=== PATIENT | female | born 1960 | race Caucasian/White ===

== ENCOUNTER 2019-11-09 15:51 | Outpatient (CLI) | payer OTHER, SELFPAY ==
[2019-11-09 16:17] LABS: Basophils Absolute Auto 0.02 K/mm3 (0.00-0.10); Basophils Percent Auto 0.4 % (0.0-1.0); Eosinophils Absolute Auto 0.25 K/mm3 (0.02-0.50); Eosinophils Percent Auto 5.2 % (1.0-6.0); Hematocrit 39.5 % (35.0-49.0); Hemoglobin 13.2 g/dL (12.0-15.0); Immature Granulocyte Absolute 0.01 K/mm3 (0.00-0.00); Immature Granulocyte Percent A 0.2 % (0.0-0.0); Lymphocytes Absolute Auto 1.12 K/mm3 (1.10-4.50); Lymphocytes Percent Auto 23.3 % (18.0-42.0); Mean Corpuscular HGB Conc 33.4 g/dL (32.0-36.0); Mean Corpuscular Volume 95.9 fL (78.0-102.0); Mean Platelet Volume 10.9 fl (9.2-11.8); Monocytes Absolute Auto 0.28 K/mm3 (0.10-0.90); Monocytes Percent Auto 5.8 % (2.0-11.0); Neutrophils Absolute Auto 3.1 K/mm3 (1.7-7.2); Neutrophils Percent Auto 65.1 % (50.0-70.0); Platelet Count Result 182 K/mm3 (150-420); Red Blood Count 4.12 M/mm3 (4.20-5.40); Red Cell Distribution Width 14.2 % (11.6-14.4); White Blood Count 4.8 K/mm3 (4.8-10.8)
[2019-11-09 16:26] LABS: Hemoglobin A1C 6.9 % (<5.7)
[2019-11-09 17:24] LABS: Alanine Aminotransferase 26 U/L (14-59); Albumin Level 3.8 g/dL (3.4-5.0); Alkaline Phosphatase 130 U/L (46-116); Anion Gap 11.8 mmol/L (7-16); Aspartate Amino Transferase 27 U/L (15-37); Bilirubin,Total 0.4 mg/dL (0.00-1.00); Blood Urea Nitrogen 24 mg/dL (7-18); Calcium 9.1 mg/dL (8.5-10.1); Carbon Dioxide 34 mmol/L (21-32); Chloride 96 mmol/L (98-108); Estimated Glomerular Filt Rate 50; Glucose 163 mg/dL (70-99); Osmolality Calculated 294 mOsm/kg (285-295); Potassium 3.8 mmol/L (3.5-5.1); Sodium 138 mmol/L (136-145); Thyroid Stimulating Hormone 41.68 uIU/mL (0.36-3.74)
[2019-11-11 19:58] LABS: Vitamin D 25 Hydroxy 5 ng/mL (30-100)
== END 2019-11-09 15:52 | disposition home or self-care (01) ==
LOC: CHSLAB 15:57
DX: N39.41 Urge incontinence (principal); E87.6 Hypokalemia; F32.89 Other specified depressive episodes; L03.119 Cellulitis of unspecified part of limb; E03.9 Hypothyroidism, unspecified; R73.9 Hyperglycemia, unspecified; R53.83 Other fatigue; E55.9 Vitamin D deficiency, unspecified
CPT/HCPCS: 36415; 80053; 82306; 83036; 84443; 85025

== ENCOUNTER 2019-11-10 15:50 | Outpatient (NON) | payer OTHER, SELFPAY ==
[2019-11-10 16:03] LABS: Add Urine Microscopic? NO; Appearance Urine Clear (Clear); Bilirubin Urine Negative (Negative); Blood Urine Negative (Negative); Color Urine Yellow (Yellow); Glucose Urine UA Negative (Negative); Ketones Urine Negative (Negative); Leukocyte Esterase Ur Negative (Negative); Nitrate Urine Negative (Negative); Protein Urine Negative (Negative); Specific Grav Ur 1.015 (1.010-1.020); Urobilinogen Urine 0.2 mg/dL (0.2-1.0); pH Urine 5.5 (5.0-8.0)
== END 2019-11-10 15:51 ==
LOC: CHSLAB 15:54
DX: N39.41 Urge incontinence (principal)
CPT/HCPCS: 81003; 87086; 87088

== ENCOUNTER 2020-05-26 18:51 | Emergency (ER) | payer OTHER, SELFPAY ==
[2020-05-26 19:00] VITALS: BP 126/69; PULSE 87; RESP 16; TEMP 37.6; O2SAT 96
--- NOTE | 2020-05-26 19:19 | ED.GENADULT ---
HPI - General Adult General Chief complaint: Neuro Symptoms/Deficit Stated complaint: possible high blood sugar Time Seen by Provider: 05/26/20 19:19 Source: patient Mode of arrival: ambulatory Limitations: no limitations History of Present Illness HPI narrative: 59-year-old woman comes in today complaining of intermittent jerking of her arms and legs last 2 days. Patient states that she was recently diagnosed with diabetes and was placed on metformin. she has had diarrhea since she started on the metformin. This diagnosis was accompanied by hospital stay for lower extremity cellulitis. She states that she has had no headaches, seizures, syncope, head injury, nausea, vomiting, blood in her stools, melena, dysuria, hematuria, abdominal pain, chest pain, shortness of breath or cough that is out of the usual. She is a smoker and has COPD. She states that she recently ran out of her potassium pills. Onset (ago): day(s) (2) Location: upper extremity and lower extremity Severity: moderate Relieving factors: none Exacerbating factors: none Treatments prior to arrival: none Related Data Home Medications Medication Instructions Recorded Confirmed alprazolam 2 mg PO TID PRN 05/26/20 05/26/20 gabapentin 400 mg PO TID 05/26/20 05/26/20 hydrocodone-acetaminophen 1 tablet PO TID 05/26/20 05/26/20 irbesartan 300 mg PO DAILY 05/26/20 05/26/20 levothyroxine [Synthroid] 225 mcg PO DAILY 05/26/20 05/26/20 metformin 500 mg PO BID 05/26/20 05/26/20 metolazone 2.5 mg PO EVERY OTHER DAY 05/26/20 05/26/20 potassium chloride 20 meq PO DAILY 05/26/20 05/26/20 tizanidine 4 mg PO TID 05/26/20 05/26/20 Review of Systems Constitutional: Constitutional: Denies chills, Denies fever(s) and Denies weakness Eyes: Eyes: Denies blurry vision, Denies change in vision, Denies loss of vision and Denies photophobia ENT: Denies otalgia, Denies nasal congestion and Denies sore throat Cardiovascular: Cardiovascular: Denies chest pain, Denies rapid heart rate and Denies irregular heart rhythm Respiratory: Respiratory: Reports cough (No more than usual) and Reports dyspnea (No more than usual) Gastrointestinal: Gastrointestinal: Denies abdominal pain, Denies melena, Denies hematochezia, Reports diarrhea, Denies nausea and Denies vomiting Genitourinary: Genitourinary: Denies hematuria and Denies dysuria Musculoskeletal: Musculoskeletal: Denies arthralgias and Denies joint swelling Integumentary/Breasts: Skin/Breast: Denies lesions, Denies erythema and Denies rash Neurologic: Reports as per HPI, Reports Neuro-related abnormal movements, Denies abnormal gait, Denies dizziness, Denies syncope, Denies frequent falls, Denies headache(s), Denies focal weakness, Denies numbness, Denies convulsions and Denies seizure-like activity Endocrine: Endocrine: Denies polydipsia and Denies polyuria Hematologic/Lymphatic: Hematologic/Lymphatic: Denies easy bleeding and Denies easy bruising Allergic/Immunologic: Allergic/Immunologic: Denies urticaria, Denies lip swelling and Denies throat swelling PMFSH Past Medical History Medical History (Updated 05/26/20 @ 20:34 by Bimal Merida MD) Anxiety Back pain COPD (chronic obstructive pulmonary disease) Hypertension Hypokalemia Lower extremity cellulitis Lower extremity edema Surgical History Surgical History History of appendectomy History of History of hysterectomy Hx of cholecystectomy Social History Social History Smoking status: Current every day smoker Alcohol intake: never Substance use: never Living arrangements: with family Exam Const: General: cooperative, alert, awake, Physically active and acute distress mild Nutritional Appearance: overweight Orientation/consciousness: patient oriented x3 Limitations: no limitations HENMT: Head: normocephalic and atraumatic Ears:
[2020-05-26 20:01] LABS: Basophils Absolute Auto 0.03 K/mm3 (0.00-0.10); Basophils Percent Auto 0.3 % (0.0-1.0); Eosinophils Absolute Auto 0.21 K/mm3 (0.02-0.50); Eosinophils Percent Auto 2.4 % (1.0-6.0); Hematocrit 40.2 % (35.0-49.0); Hemoglobin 13.3 g/dL (12.0-15.0); Immature Granulocyte Absolute 0.03 K/mm3 (0.00-0.00); Immature Granulocyte Percent A 0.3 % (0.0-0.0); Lymphocytes Absolute Auto 1.42 K/mm3 (1.10-4.50); Lymphocytes Percent Auto 16.1 % (18.0-42.0); Mean Corpuscular HGB Conc 33.1 g/dL (32.0-36.0); Mean Corpuscular Hemoglobin 32.3 pg (27.0-31.0); Mean Corpuscular Volume 97.6 fL (78.0-102.0); Mean Platelet Volume 11.3 fl (9.2-11.8); Monocytes Absolute Auto 0.44 K/mm3 (0.10-0.90); Neutrophils Absolute Auto 6.7 K/mm3 (1.7-7.2); Neutrophils Percent Auto 75.9 % (50.0-70.0); Platelet Count Result 238 K/mm3 (150-420); Red Blood Count 4.12 M/mm3 (4.20-5.40); Red Cell Distribution Width 14.7 % (11.6-14.4); White Blood Count 8.8 K/mm3 (4.8-10.8)
[2020-05-26 20:06] LABS: Add Urine Microscopic? NO; Appearance Urine Clear (Clear); Bilirubin Urine Negative (Negative); Blood Urine Negative (Negative); Color Urine Yellow (Yellow); Glucose Urine UA Negative (Negative); Ketones Urine Negative (Negative); Leukocyte Esterase Ur Negative (Negative); Nitrate Urine Negative (Negative); Protein Urine Negative (Negative); Urobilinogen Urine 0.2 mg/dL (0.2-1.0)
[2020-05-26 20:16] LABS: Alanine Aminotransferase 29 U/L (14-59); Albumin Level 4.2 g/dL (3.4-5.0); Alkaline Phosphatase 120 U/L (46-116); Anion Gap 8 mmol/L (8-16); Aspartate Amino Transferase 33 U/L (15-37); Bilirubin,Total 0.5 mg/dL (0.00-1.00); Blood Urea Nitrogen 9 mg/dL (7-18); Calcium 9.4 mg/dL (8.5-10.1); Carbon Dioxide 33 mmol/L (21-32); Chloride 98 mmol/L (98-108); Estimated Glomerular Filt Rate 42; Glucose 105 mg/dL (70-99); Magnesium 1.5 mg/dL (1.8-2.4); Osmolality Calculated 286 mOsm/kg (285-295); Phosphorus 3.7 mg/dL (2.6-4.7); Potassium 2.8 mmol/L (3.5-5.1); Sodium 139 mmol/L (136-145); Total Protein 8.1 g/dL (6.4-8.2)
[2020-05-26 20:38] LABS: Glucose Point of Care 92 (65-105)
[2020-05-26] MEDS: POTASSIUM CHLORIDE 20 MEQ TABLET 40 MEQ PO (20:39)
[2020-05-26 20:40] VITALS: BP 117/69
[2020-05-30 04:12] LABS: Ionized Calcium 4.9 mg/dL (4.8-5.6)
== END 2020-05-26 20:40 | disposition home or self-care (01) ==
PROVIDERS: Emergency Provider Emergency Medicine
DX: E87.6 Hypokalemia (principal)
CPT/HCPCS: 36415; 80053; 81003; 82330; 83735; 84100; 85025; 99283; A9270

== ENCOUNTER 2020-12-15 13:01 | Emergency (ER) | payer OTHER, SELFPAY ==
--- NOTE | ~2020-12-15 | XR_ITS ---
EXAMINATION: XR chest 1V portable INDICATION: Chest pain TECHNIQUE: Portable AP chest at 1429 hours COMPARISON: 06/09/2012 FINDINGS: The lungs are free of acute opacities. There is no pleural effusion or pneumothorax. The ca rdiomediastinal silhouette is normal. IMPRESSION: 1. No acute cardiopulmonary abnormality. Reviewed, dictated and finalized at location B.
[2020-12-15 13:44] VITALS: BP 81/51; PULSE 58; RESP 18; TEMP 36.3; O2SAT 95
--- NOTE | 2020-12-15 13:45 | PC.NURSE ---
pt refusing to have iv started in ac or hand.
--- NOTE | 2020-12-15 13:51 | ECG_ITS ---
Measurements Intervals [place] Rate: 52 P: 64 KS: 210 QRS: 37 QRSD: 99 T: 20 QT: 452 QTc: 422 Interpretive Statements SINUS BRADYCARDIA WITH FIRST DEGREE AV BLOCK DELAYED PRECORDIAL R/S TRANSITION BASELINE ARTIFACT- I, II, III, AVR, AVL, AVF ABNORMAL ECG Electronically Signed On 12-15-2020 15:14:30 CDT by Vivek Stahl D.O.
[2020-12-15] MEDS: SODIUM CHLORIDE 0.9% IV 1,000 ML 999 ML IV CONT (14:12)
[2020-12-15 14:18] LABS: Basophils Absolute Auto 0.02 K/mm3 (0.00-0.10); Basophils Percent Auto 0.4 % (0.0-1.0); Eosinophils Absolute Auto 0.08 K/mm3 (0.02-0.50); Eosinophils Percent Auto 1.4 % (1.0-6.0); Hematocrit 37.4 % (35.0-49.0); Hemoglobin 12.4 g/dL (12.0-15.0); Immature Granulocyte Absolute 0.02 K/mm3 (0.00-0.00); Immature Granulocyte Percent A 0.4 % (0.0-0.0); Lymphocytes Absolute Auto 0.71 K/mm3 (1.10-4.50); Lymphocytes Percent Auto 12.6 % (18.0-42.0); Mean Corpuscular HGB Conc 33.2 g/dL (32.0-36.0); Mean Corpuscular Volume 93.5 fL (78.0-102.0); Mean Platelet Volume 10.4 fl (9.2-11.8); Monocytes Absolute Auto 0.37 K/mm3 (0.10-0.90); Monocytes Percent Auto 6.6 % (2.0-11.0); Neutrophils Absolute Auto 4.4 K/mm3 (1.7-7.2); Neutrophils Percent Auto 78.6 % (50.0-70.0); Platelet Count Result 239 K/mm3 (150-420); White Blood Count 5.6 K/mm3 (4.8-10.8)
--- NOTE | 2020-12-15 14:30 | PC.NURSE ---
Pt drowsy, pt states her iv is infiltrated and wants it removed. small area of swelling, blood return noted. iv discontinued per pt request. pt refusing to have iv placed in ac or her hand. explained to pt at length that at this time and due to bruising of recent iv starts and lab draws this was the only location this RN could get iv access. pt agrees. sl started to left hand without difficulty, blood return noted, flushes easily. pt states area of iv start is painful, assured pt that iv is in proper position and iv fluids are infusing.
[2020-12-15 14:36] LABS: Alanine Aminotransferase 23 U/L (14-59); Alkaline Phosphatase 135 U/L (46-116); Anion Gap 8 mmol/L (8-16); Aspartate Amino Transferase 25 U/L (15-37); Bilirubin,Total 0.6 mg/dL (0.00-1.00); Blood Urea Nitrogen 25 mg/dL (7-18); Calcium 8.7 mg/dL (8.5-10.1); Carbon Dioxide 33 mmol/L (21-32); Chloride 95 mmol/L (98-108); Estimated CRCL calculation 47 ml/min; Estimated Glomerular Filt Rate 44; Glucose 163 mg/dL (70-99); Osmolality Calculated 290 mOsm/kg (285-295); Potassium 3.6 mmol/L (3.5-5.1); Sodium 136 mmol/L (136-145); Total Protein 6.3 g/dL (6.4-8.2)
[2020-12-15 14:37] LABS: Lactic Acid Reflex 1.6 mmol/L (0.4-2.0); Troponin I < 4.0 ng/L (0.00-60.4)
--- NOTE | 2020-12-15 15:02 | PC.NURSE ---
PT SITTING UP ON STRETCHER SLEEPING, DAUGHTER AT BEDSIDE
[2020-12-15 15:03] VITALS: BP 82/46; PULSE 53; RESP 18; O2SAT 96
[2020-12-15 15:42] VITALS: BP 105/65; PULSE 57; RESP 18; O2SAT 99
[2020-12-15 15:57] LABS: Add Urine Microscopic? NO; Appearance Urine Clear (Clear); Bilirubin Urine Negative (Negative); Blood Urine Negative (Negative); Color Urine Light Yellow (Yellow); Glucose Urine UA Negative (Negative); Ketones Urine Negative (Negative); Leukocyte Esterase Ur Negative (Negative); Nitrate Urine Negative (Negative); Protein Urine Negative (Negative); Specific Grav Ur <= 1.005 (1.010-1.020); Urobilinogen Urine 0.2 mg/dL (0.2-1.0)
[2020-12-15] MEDS: SODIUM CHLORIDE 0.9% IV 500 ML 999 ML IV CONT (16:10)
[2020-12-15 16:14] LABS: Troponin I < 4.0 ng/L (0.00-60.4)
--- NOTE | 2020-12-15 16:30 | ED.EXTPRO ---
HPI - Extremity Problem General Chief complaint: Extremity Problem,Nontraumatic Stated complaint: L leg drainage and starting on the R Time Seen by Provider: 12/15/20 13:46 Source: patient and family Mode of arrival: wheelchair Limitations: no limitations History of Present Illness Complaint: extremity pain and extremity swelling Onset (ago): week(s) (4) Pain Consistency: other (no acute pain) Location: left and right Severity scale (1-10): 2 Relieving factors: medication Exacerbating factors: nothing Related Data Home Medications Medication Instructions Recorded Confirmed gabapentin 400 mg PO QID 05/26/20 12/15/20 hydrocodone-acetaminophen 1 tablet PO QID 05/26/20 12/15/20 irbesartan 300 mg PO DAILY 05/26/20 12/15/20 levothyroxine [Synthroid] 225 mcg PO DAILY 05/26/20 12/15/20 metformin 500 mg PO QACDINNER 05/26/20 12/15/20 metolazone 2.5 mg PO EVERY OTHER DAY 05/26/20 12/15/20 tizanidine 4 mg PO TID 05/26/20 12/15/20 aspirin [Adult Low Dose Aspirin] 81 mg PO DAILY 12/15/20 12/15/20 furosemide 40 mg PO DAILY 12/15/20 12/15/20 magnesium oxide 400 mg PO DAILY 12/15/20 12/15/20 temazepam [Restoril] 30 mg PO HS 12/15/20 12/15/20 Allergies Allergy/AdvReac Type Severity Reaction Status Date / Time ciprofloxacin [From Cipro] Allergy Unknown Verified 12/15/20 13:43 sulfamethoxazole Allergy Hives Verified 05/26/20 20:37 [From Bactrim] trimethoprim [From Bactrim] Allergy Hives Verified 05/26/20 20:37 Review of Systems Review of Systems: All systems reviewed & are unremarkable except as noted in HPI and below Constitutional: Constitutional: Reports as per HPI and Reports no additional constitutional complaints Eyes: Eyes: Reports as per HPI and Reports no additional eye complaints ENT: Reports system reviewed and no additional complaints, except as documented and Reports as per HPI Cardiovascular: Cardiovascular: Reports as per HPI and Reports no additional cardiovascular complaints Respiratory: Respiratory: Reports as per HPI and Reports no additional respiratory complaints Gastrointestinal: Gastrointestinal: Reports as per HPI and Reports no additional gastrointestinal complaints Genitourinary: Genitourinary: Reports no additional female genitourinary complaints and Reports as per HPI Musculoskeletal: Musculoskeletal: Reports no additional musculoskeletal complaints and Reports as per HPI Integumentary/Breasts: Skin/Breast: Reports system reviewed and no additional complaints, except as docu and Reports as per HPI Neurologic: Reports system reviewed and no additional complaints, except as documented and Reports as per HPI Psychiatric: Psychiatric: Reports no additional psychiatric complaints and Reports as per HPI Endocrine: Endocrine: Reports no additional endocrine complaints and Reports as per HPI Hematologic/Lymphatic: Hematologic/Lymphatic: Reports no additional hematologic/lymphatic complaints and Reports as per HPI Allergic/Immunologic: Allergic/Immunologic: Reports no additional allergic/immunologic complaints and Reports as per HPI PMFSH Past Medical History Medical History Anxiety Back pain COPD (chronic obstructive pulmonary disease) Hypertension Hypokalemia Lower extremity cellulitis Lower extremity edema Surgical History Surgical History History of appendectomy History of History of hysterectomy Hx of cholecystectomy Social History Social History Smoking status: Current every day smoker Alcohol intake: never Substance use: never Exam Const: General: no acute distress and alert Nutritional Appearance: obese Orientation/consciousness: patient oriented x3 HENMT: Head: normal to inspection Ears: external ears normal and TM's normal bilaterally General nose exam: Normal external nose present and
[2020-12-15 17:25] VITALS: BP 119/68; PULSE 62; RESP 18; O2SAT 100
== END 2020-12-15 17:29 | disposition home or self-care (01) ==
PROVIDERS: Emergency Provider Emergency Medicine
DX: R60.0 Localized edema (principal)
CPT/HCPCS: 36415; 71045; 80053; 81003; 83605; 84484; 85025; 93005; 96365; 99283; 99284; J0696; J7030; J7040

== ENCOUNTER 2022-03-27 21:53 | Emergency (ER) | payer OTHER, SELFPAY ==
[2022-03-27 21:57] VITALS: BP 116/80; PULSE 88; RESP 16; TEMP 36.6; O2SAT 95
--- NOTE | 2022-03-27 22:26 | ED.GENADULT ---
HPI - General Adult General Chief complaint: Extremity Injury, Lower Stated complaint: injury to right leg Time Seen by Provider: 03/27/22 22:25 Source: patient Mode of arrival: ambulatory Limitations: no limitations History of Present Illness HPI narrative: 61-YEAR-OLD WHITE FEMALE WITH CHRONIC EDEMA OF HER LOWER EXTREMITIES ACCIDENTALLY CAUSED A SKIN TEAR OF HER RIGHT ANTERIOR WHITE WHEN A GLASS DOOR FROM HER REFRIGERATOR HIT HER WHITE SHE WAS CLEANING IT OUT. DENIES ANY PROBLEMS AMBULATING. TETANUS IMMUNIZATION IS UP-TO-DATE. SHE DENIES ANY NUMBNESS OR TINGLING. DENIES ANY PROBLEMS WALKING OR ANY OTHER SYMPTOMS. Related Data Home Medications Medication Instructions Recorded Confirmed gabapentin 400 mg capsule 400 mg PO QID 05/26/20 03/27/22 irbesartan 300 mg tablet 300 mg PO DAILY 05/26/20 03/27/22 levothyroxine 200 mcg tablet 225 mcg PO DAILY 05/26/20 03/27/22 (Synthroid) metformin 500 mg tablet 500 mg PO QACDINNER 05/26/20 03/27/22 metolazone 2.5 mg tablet 2.5 mg PO EVERY OTHER DAY 05/26/20 03/27/22 tizanidine 4 mg tablet 4 mg PO TID 05/26/20 03/27/22 furosemide 40 mg tablet 40 mg PO DAILY 12/15/20 03/27/22 Allergies Allergy/AdvReac Type Severity Reaction Status Date / Time ciprofloxacin [From Cipro] Allergy Unknown Verified 03/27/22 22:20 sulfamethoxazole Allergy Hives Verified 03/27/22 22:20 [From Bactrim] trimethoprim [From Bactrim] Allergy Hives Verified 03/27/22 22:20 Review of Systems Review of Systems: All systems reviewed & are unremarkable except as noted in HPI and below Constitutional: Constitutional: Reports no additional constitutional complaints Eyes: Eyes: Reports no additional eye complaints ENT: Reports system reviewed and no additional complaints, except as documented Cardiovascular: Cardiovascular: Reports no additional cardiovascular complaints Respiratory: Respiratory: Reports no additional respiratory complaints Gastrointestinal: Gastrointestinal: Reports no additional gastrointestinal complaints Genitourinary: Genitourinary: Reports no additional female genitourinary complaints Musculoskeletal: Musculoskeletal: Reports no additional musculoskeletal complaints Comments: CHRONIC LYMPHEDEMA Neurologic: Reports system reviewed and no additional complaints, except as documented PMFSH Past Medical History Medical History Anxiety Back pain COPD (chronic obstructive pulmonary disease) Hypertension Hypokalemia Lower extremity cellulitis Lower extremity edema Surgical History Surgical History History of appendectomy History of History of hysterectomy Hx of cholecystectomy Social History Social History Smoking status: Current every day smoker Alcohol intake: never Substance use: never Exam Const: Other: PATIENT IS A MORBIDLY OBESE WHITE FEMALE SHE APPEARS IN NO APPARENT DISTRESS RIGHT LOWER EXTREMITY SHOWS BRAWNY EDEMA BOTH EXTREMITIES SHE HAS IRREGULAR SKIN TEAR MEASURING ABOUT 4 CM SUPERFICIAL INVOLVING ONLY THE SKIN. WITHOUT ANY ACTIVE BLEEDING. SENSATION IS NORMAL NEUROVASCULAR IS INTACT. PATIENT AMBULATES WITH A WALKER Course Course Emergency Course: PATIENT REFUSED X-RAY OF HER TIB-FIB. SHE SAID THEN HIT THE HARD. AND SHE SAID IT WAS PARTIALLY PROTECTED BY A VELCRO COVERING THAT SHE USES FOR TO REDUCE HER CHRONIC SWELLING. SKIN ADHESIVE WAS USED AROUND THE WOUND AND THEN STERI-STRIPS WERE APPLIED WITH GOOD CLOSURE AND A DRY DRESSING WAS PLANNED APPLIED OVER THIS. PATIENT TOLERATED PROCEDURE WELL Medical Decision Making MDM Narrative Medical decision making narrative: PATIENT HAS HAD CELLULITIS AFTER LACERATIONS TO HER LOWER EXTREMITIES BEFORE AND IS AT RISK FOR CELLULITIS AGAIN SO WILL START HER ON SOME CEPHALEXIN 500 MG 3 TIMES A DAY FOR 5 DAYS. THE WOU
[2022-03-27] MEDS: CEPHALEXIN 500 MG CAPSULE (23:02)
--- NOTE | 2022-03-27 23:11 | PC.NURSE ---
Addendum entered by Deonte Silvestre RN 03/27/22 23:12: PMS is present distally after applying the bandage Original Note: RN applies 4x4 and koban to cover pt's steri strips. Pt also educated to continue wearing her compression stockings over the wrapped wound. Pt verbalized understanding and had no other questions at this time.
[2022-03-27 23:16] VITALS: BP 124/80; PULSE 77; RESP 16; O2SAT 94
== END 2022-03-27 23:20 | disposition home or self-care (01) ==
PROVIDERS: Emergency Provider Emergency Medicine
DX: S81.811A Laceration without foreign body, right lower leg, initial encounter (principal); R60.0 Localized edema; W45.8XXA Other foreign body or object entering through skin, initial encounter
CPT/HCPCS: 99283; A9270

== ENCOUNTER 2023-05-10 12:48 | Outpatient (CLI) | payer OTHER, SELFPAY ==
--- NOTE | ~2023-05-10 | US_ITS ---
EXAMINATION: US arterial ankle brachial ind DATE: 05/10/2023 13:55 INDICATION: Left lower extremity skin ulcerations with peripheral vascular disease risk factors of hy pertension, smoking and obesity. TECHNIQUE: Segmental pressures and plethysmographic and Doppler waveforms of the brachial and lower e xtremity arteries were obtained. COMPARISON: None. FINDINGS: Right and left brachial artery pressures of 114 mm Hg and 106 mm Hg, respectively, are concordant (no rmal difference <= 30 mmHg). The right ankle-brachial index (PINKY) is 1.22 (normal >= 0.9-1.0). The right great toe-brachial index (TBI) is 0.89 (normal >= 0.65). Arterial Doppler waveforms demonstrate brisk systolic upstrokes at mary th right posterior tibial and dorsalis pedis arteries. The left PINKY is 1.32. The left TBI is 0.80. Arterial Doppler waveforms demonstrate brisk systolic ups trokes at both left posterior tibial and dorsalis pedis arteries. IMPRESSION: 1. No significant arterial occlusive disease to the bilateral lower limbs with normal bilateral ABIs and TBIs. Reviewed, dictated and finalized at location A. 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
== END 2023-05-10 12:49 | disposition home or self-care (01) ==
LOC: CHSIMG 12:51
DX: L97.922 Non-pressure chronic ulcer of unspecified part of left lower leg with fat layer exposed (principal); I87.2 Venous insufficiency (chronic) (peripheral)
CPT/HCPCS: 93922

== ENCOUNTER 2023-11-04 14:23 | Emergency (ER) | payer OTHER, SELFPAY ==
--- NOTE | ~2023-11-04 | XR_ITS ---
EXAM: XR tibia fibula LT 2V DATE: 11/04/2023 15:29 HISTORY: cellulitis of lower leg, build up of edema . COMPARISON: None available. FINDINGS: Marked soft tissue/subcutaneous edema which limits radiologic detail. No subcutaneous gas. Suggestion of a slightly oblique mildly displaced medial malleolar fracture with overlying periostea l change. No other fracture. No dislocation. No other periosteal changes. No lytic or blastic lesion. No osseous erosion. IMPRESSION: Likely subacute medial malleolus fracture, correlate with pain and history of trauma. Sev ere leg soft tissue/subcutaneous edema. Reviewed, dictated and finalized at location K. IMPRESSION: Likely subacute medial malleolus fracture, correlate with pain and history of trauma. Severe leg soft tissue/subcutaneous edema.
[2023-11-04 14:25] VITALS: BP 123/87; PULSE 86; RESP 16; TEMP 37.1; O2SAT 94
--- NOTE | 2023-11-04 14:41 | ED.GENADULT ---
HPI - General Adult General Chief complaint: Extremity Problem,Nontraumatic Stated complaint: BILAT LEG SWELLING AND DRAINAGE Time Seen by Provider: 11/04/23 14:34 As discussed in hpi. Source: patient History of Present Illness HPI narrative: history of present illness: Informant is patient. Complains of swelling bilateral lower extremities, has history of chronic lymphedema for years. She comes in now because she feels there is redness and she is worried about infection to the left medley area. She also feels that her lymphedema is a bit worse than usual but does admit she has not taken her Lasix for a week. She does have a prescription for Lasix that she can feel she just has not gotten it. Patient also gives a history of a ankle twist injury on the left ankle, this occurred 9-10 weeks ago, she says it just remains sore and does not seem to be improving. She denies any left knee or hip pain. Problem located lower extremities and specifically to the left ankle. It is like possible cellulitis and exacerbation of lymphedema. Moderate severity. Nothing seems to make it better at home. Patient does report she has taken Keflex in the past for this same issue and it has made it better. Associated symptoms: No reported cough or fever. Past medical history: Hypertension, chronic lymphedema, fatty liver, asthma / COPD social history: Smokes, encouraged to stop. Denies alcohol and street drugs. Past surgical history: Gallbladder, appendix, , hysterectomy family history: Positive for cancer and heart disease, negative for diabetes . Related Data Home Medications Medication Instructions Recorded Confirmed gabapentin 400 mg capsule 400 mg PO QID 05/26/20 11/04/23 irbesartan 300 mg tablet 300 mg PO DAILY 05/26/20 03/27/22 levothyroxine 200 mcg tablet 225 mcg PO DAILY 05/26/20 11/04/23 (Synthroid) metformin 500 mg tablet 500 mg PO QACDINNER 05/26/20 03/27/22 metolazone 2.5 mg tablet 2.5 mg PO EVERY OTHER DAY 05/26/20 03/27/22 tizanidine 4 mg tablet 4 mg PO TID 05/26/20 03/27/22 furosemide 40 mg tablet 40 mg PO DAILY 12/15/20 11/04/23 potassium chloride 20 mEq 20 meq PO TID 11/04/23 11/04/23 tablet,extended release(part/cryst) (Klor-Con M) Allergies Allergy/AdvReac Type Severity Reaction Status Date / Time ciprofloxacin [From Cipro] Allergy Unknown Verified 11/04/23 14:42 sulfamethoxazole Allergy Hives Verified 11/04/23 14:42 [From Bactrim] trimethoprim [From Bactrim] Allergy Hives Verified 11/04/23 14:42 Review of Systems Review of Systems: REVIEW OF SYSTEMS- constitutional: No fevers, no chills, no sweats eye: No recent visual problems ENT: No ear pain, no nasal congestion, no sore throat respiratory: No shortness of breath, no cough cardiovascular: No chest pain, no palpitations, no syncope gastrointestinal: No nausea, no vomiting, no diarrhea bradley/lymph: No bruising tendency, no swollen lymph glands endocrine: No excessive thirst, no excessive hunger muscle skeletal: lymphedema bilateral lower extremities, some redness left medley. integumentary: Redness left lower extremity /chin area. neurologic: Alert and oriented x4 psychiatric: No anxiety, no depression PMFSH Past Medical History Medical History Anxiety Back pain COPD (chronic obstructive pulmonary disease) Hypertension Hypokalemia Lower extremity cellulitis Lower extremity edema Surgical History Surgical History History of appendectomy History of History of hysterectomy Hx of cholecystectomy Social History Social History Smoking status: Current every day smoker Alcohol intake: never Substance use: never Living arrangements: with family Exam Narrative: Physical exam: General- alert and
[2023-11-04 15:07] LABS: Basophils Absolute Auto 0.01 K/mm3 (0.00-0.10); Basophils Percent Auto 0.2 % (0.0-1.0); Eosinophils Absolute Auto 0.08 K/mm3 (0.02-0.50); Eosinophils Percent Auto 1.7 % (1.0-6.0); Hematocrit 39.3 % (35.0-49.0); Hemoglobin 12.4 g/dL (12.0-15.0); Immature Granulocyte Absolute 0.03 K/mm3 (0.00-0.00); Immature Granulocyte Percent A 0.6 % (0.0-0.0); Lymphocytes Absolute Auto 0.45 K/mm3 (1.10-4.50); Lymphocytes Percent Auto 9.5 % (18.0-42.0); Mean Corpuscular HGB Conc 31.6 g/dL (32-36); Mean Corpuscular Hemoglobin 28.8 pg (27.0-31.0); Mean Corpuscular Volume 91.2 fL (78.0-102.0); Mean Platelet Volume 9.4 fl (9.2-11.8); Monocytes Absolute Auto 0.23 K/mm3 (0.10-0.90); Monocytes Percent Auto 4.8 % (2.0-11.0); Neutrophils Absolute Auto 3.95 K/mm3 (1.70-7.20); Neutrophils Percent Auto 83.2 % (50.0-70.0); Platelet Count Result 168 K/mm3 (150-420); Red Blood Count 4.31 M/mm3 (4.20-5.40); Red Cell Distribution Width 14.4 % (11.6-14.4); White Blood Count 4.8 K/mm3 (4.8-10.8)
[2023-11-04 15:26] LABS: Alanine Aminotransferase 18 U/L (14-59); Albumin Level 3.4 g/dL (3.4-5.0); Alkaline Phosphatase 101 U/L (46-116); Anion Gap 4 mmol/L (4-12); Aspartate Amino Transferase 33 U/L (15-37); Bilirubin,Total 0.4 mg/dL (0.00-1.00); Blood Urea Nitrogen 9 mg/dL (7-18); Calcium 8.3 mg/dL (8.5-10.1); Carbon Dioxide 38 mmol/L (21-32); Chloride 96 mmol/L (98-108); Estimated CRCL calculation 61 ml/min; Estimated Glomerular Filt Rate 60; Glucose 110 mg/dL (70-99); NT Pro B Type Natriuretic Pept 187 pg/mL (0-125); Osmolality Calculated 285 mOsm/kg (285-295); Potassium 3.4 mmol/L (3.5-5.1); Sodium 138 mmol/L (136-145); Total Protein 6.6 g/dL (6.4-8.2)
[2023-11-04 16:25] VITALS: BP 134/70; PULSE 67; RESP 16; TEMP 36.7; O2SAT 97
--- NOTE | 2023-11-06 12:14 | PC.NURSE ---
AEROBIC WOULD CULTURE PRELIMINARY RESULTS: ISOALTE 1: HEAVY GROWTH OF PSEUDOMONAS AERUGINOSA. ISOLATE 2: LIGHT GROWTH OF STAPHYLOCOCCUS AUREUS. TO AWAIT C&S PER DR WOLFF.
--- NOTE | 2023-11-07 13:49 | PC.NURSE ---
Final wound culture report, patient discharged on cephalexin, culture susceptible. no change in medication needed no further action needed at this time per ERP Dr. Diego.
--- NOTE | 2023-11-08 09:46 | PC.NURSE ---
culture Left ankle reviewed per dr Ross, no changes needed at this time. rx cephalexin is appropriate.
--- NOTE | 2023-11-10 18:22 | PC.NURSE ---
final wound culture report reviewed. pseudomonas aeruginosa and MRSA isolated. pt was prescribed cephalexin at discharge. isolates are resistant to this med. dr persaud reviewed this final report and changed order to levaquin 750mg daily x10 days. pt called, instructed to fill new rx and stop original rx. pt verbalizes understanding. levaquin rx called in to [facility] in [place].
== END 2023-11-04 16:25 | disposition home or self-care (01) ==
PROVIDERS: Emergency Provider Emergency Medicine
DX: S82.52XA Displaced fracture of medial malleolus of left tibia, initial encounter for closed fracture (principal); I89.0 Lymphedema, not elsewhere classified; L03.116 Cellulitis of left lower limb; E87.6 Hypokalemia; I10 Essential (primary) hypertension; J44.9 Chronic obstructive pulmonary disease, unspecified; F17.200 Nicotine dependence, unspecified, uncomplicated; Z79.899 Other long term (current) drug therapy; X50.0XXA Overexertion from strenuous movement or load, initial encounter
CPT/HCPCS: 36415; 73590; 80053; 83880; 85025; 87070; 87147; 87181; 87186; 87205; 99283

== ENCOUNTER 2024-08-13 09:47 | Emergency (ER) | payer MEDICARE, SELFPAY ==
--- NOTE | ~2024-08-13 | XR_ITS ---
Clinical Indication: Chest pain PA and lateral views of the chest: Comparison: 12/15/2020 Findings: The lungs are clear, without evidence of focal consolidation or pleural effusion. Cardiome diastinal silhouette is within normal limits. Bones and soft tissues are unremarkable. Impression: Normal chest. Reviewed, dictated and finalized at location . Impression: Normal chest.
--- NOTE | 2024-08-13 09:50 | ED.CHESTPAIN ---
HPI - Chest Pain General Chief Complaint: Chest Pain Stated Complaint: cp Time Seen by Provider: 08/13/24 09:50 Source: patient Mode of arrival: EMS Limitations: no limitations History of Present Illness HPI narrative: 64 years old white female came from halfway by ambulance complaining of left chest sharp stabbing pain started while sleeping at night at 2:00 a.m.. Patient is telling me that she is not able to sleep since been at the halfway because of chronic back pain and leg pain. Patient is telling me that she has to be on oxycodone at [facility] prior to discharge 6 days ago to rehab. She is telling me that the do not give her any oxycodone at the rehab. Patient reports see scared to move otherwise will trigger her left chest sharp pain. Currently her main complaint is lower back pain and leg pain. Afraid to move to trigger chest pain. She denies any fever, chills, nausea, vomiting, shortness of breath. Pain worse with movement, better if she remaining still. Patient is telling me that she has spend over 1 week at cardiac ICU at [facility] and her ejection fraction is 35%. Related Data Home Medications ?Medication ?Instructions ?Recorded ?Confirmed ?Last Taken ?Type gabapentin 400 mg capsule 400 mg PO QID 05/26/20 11/04/23 Unknown History irbesartan 300 mg tablet 300 mg PO DAILY 05/26/20 03/27/22 Unknown History levothyroxine 200 mcg tablet 225 mcg PO DAILY 05/26/20 11/04/23 Unknown History (Synthroid) metformin 500 mg tablet 500 mg PO QACDINNER 05/26/20 03/27/22 Unknown History metolazone 2.5 mg tablet 2.5 mg PO EVERY OTHER DAY 05/26/20 03/27/22 Unknown History tizanidine 4 mg tablet 4 mg PO TID 05/26/20 03/27/22 Unknown History furosemide 40 mg tablet 40 mg PO DAILY 12/15/20 11/04/23 Unknown History potassium chloride 20 mEq 20 meq PO TID 11/04/23 11/04/23 Unknown History tablet,extended release(part/cryst) (Klor-Con M) Allergies Allergy/AdvReac Type Severity Reaction Status Date / Time ciprofloxacin (From Cipro) Allergy Unknown Verified 08/13/24 10:03 sulfamethoxazole (From Allergy Hives Verified 08/13/24 10:03 Bactrim) trimethoprim (From Bactrim) Allergy Hives Verified 08/13/24 10:03 Review of Systems Review of Systems: All systems reviewed & are unremarkable except as noted in HPI and below PMFSH Past Medical History Medical History COPD (chronic obstructive pulmonary disease) Lower extremity cellulitis Hypokalemia Anxiety Back pain Hypertension Lower extremity edema Surgical History Surgical History History of hysterectomy Hx of cholecystectomy History of appendectomy History of Social History Social History Smoking status: Current every day smoker Alcohol intake: never Substance use: never Living arrangements: with family Exam Narrative: General appearance: Well-developed, well-nourished Skin: Normal color Head: Normocephalic, nontraumatic Eyes: Clear conjunctiva ENT: Oropharynx normal, ears normal, nose normal Neck: Supple, nontender Chest and respiratory: Airway patent, no respiratory distress, no accessory muscle use [id number] diffuse tenderness across the chest mainly on the left side, no bruises or swelling or rash Heart: Regular rate/rhythm Abdomen: Soft, nontender, no organomegaly, quiet bowel sounds Vascular: Normal peripheral pulses, normal capillary refill. Musculoskeletal: Normal range of motion, nontender back Neurologic: Alert and oriented ?3, [employer]P is normal as tested, no gross motor deficit Course Vital Signs Vital signs: Vital Signs Temperature 36.8 C 08/13/24 09:53 Pulse Rate 62 08/13/24 09:53 Respiratory Rate 12 08/13/24 09:53 Blood Pressure 126/74 08/13/24 09:53 Pulse Oximetry 97 08/13/24 09:53 Oxygen Delivery Room Air 08/13/24 09:53 Temperature 36.8 C 08/13/24 09:53 Pulse Rate 59 L 08/13/24 12:30 Respiratory Rate 14 08/13/24 12:30 Blood Pressure 138/79 08/13/24 12:30 Pulse Oximetry 97 08/13/24 12:30 Oxygen Delivery Room Air 08/13/24 09:53 MDM - Chest Pain MDM Narrative Medical decision making narrative: Patient came to the ED with left chest sharp pain at rest while sleep Vital signs are stable Physical examination showing depressed patient in pain because of lower back and leg pain which is chronic no chest pain at this time Differential diagnosis musculoskeletal, not taking her oxycodone daily as used to be, less likely coronary artery disease, UPPER RESPIRATORY VIRAL INFECTION Blood workup today includes CBC, CMP, troponin, BNP SHOWED WBC OF 2.2, PLATELET COUNT 130, BNP 852 RESPIRATORY PANEL POSITIVE FOR INFLUENZA A CHEST X-RAY SHOWED NORMAL CHEST EKG ON ARRIVAL SHOWED NORMAL SINUS RHYTHM DIAGNOSIS INFLUENZA DISCHARGED ON TAMIFLU AND CONTINUE HOME MEDICATION PLUS OXYCODONE KNEE Differential Diagnosis Differential diagnosis: Likely other ( ABOVE) Medical Records Data Attestation: I reviewed the patient's medical records. Lab Data Attestation: I reviewed the patient's lab results. 08/13/24 10:19 08/13/24 10:19 Labs: Lab Results 08/13/24 08/13/24 Range/Units 10:19 13:06 WBC 2.2 L (4.5-10.0) K/mm3 RBC 3.84 L (4.2-5.4) M/mm3 Hgb 10.8 L (12.0-15.0) g/dL Hct 34.3 L (37.0-47.0) % MCV 89.3 (80-100) fl MCH 28.1 (26-34) pg MCHC 31.5 L (32-36) g/dl RDW 18.0 H (11.5-14.5) % Plt Count 130 L (150-375) k/mm3 MPV 11.1 H (7.4-10.4) fl Immature Gran % (Auto) 0.5 (0-0.5) % Neut % (Auto) 66.8 (45.5-73.1) % Lymph % (Auto) 25.8 (18.3-44.2) % [place] % (Auto) 5.9 (2.6-8.5) % Eos % (Auto) 0.5 (0-4.4) % Baso % (Auto) 0.5 (0.2-1.2) % Lymph # (Auto) 0.57 L (0.9-3.2) K/mm3 [place] # (Auto) 0.1 (0.1-0.6) K/mm3 Eos # (Auto) 0.0 (0-0.3) K/mm3 Baso # (Auto) 0.0 (0.0-0.1) K/mm3 Abs Immat Gran (auto) 0.01 (0.00-0.031) K/mm3 Absolute Neuts (auto) 1.5 (1.3-6.7) K/mm3 Absolute Nucleated RBC 0.000 (0.0-0.012) K/mm3 Nucleated RBC % 0.0 (0.0-0.2) % % Immature Plt Fraction 6.9 (0.9-11.2) % PT 13.8 (11.1-14.7) Seconds INR 1.0 APTT 42.9 H (22.3-36.8) Seconds Sodium 138 (137-145) mmol/L Potassium 3.8 (3.4-5.0) mmol/L Chloride 103 (98-107) mmol/L Carbon Dioxide 29 (22-30) mmol/L Anion Gap 6 (4-12) mmol/L BUN 8 (7-17) mg/dL Creatinine 0.59 L (0.7-1.0) mg/dL Estim Creat Clear Calc 82 ml/min Estimated GFR > 60 (59 - ) Glucose 121 H (65-110) mg/dL Calcium 8.8 (8.4-10.2) mg/dL Total Bilirubin 0.6 (0.2-1.3) mg/dL AST 55 H (14-36) U/L ALT 26 (6-35) U/L Alkaline Phosphatase 81 (38-126) U/L Troponin I < 0.012 < 0.012 (0.000-0.034) ng/mL NT-Pro-B Natriuret Pep 852 H (19.9-100) pg/mL Total Protein 6.0 L (6.3-8.2) g/dL Albumin 3.6 (3.5-5.1) g/dL Lipase 24 (23-300) U/L Influenza A (RT-PCR) Positive A (Negative) Influenza B (RT-PCR) Negative (Negative) RSV (RT-PCR) Negative (Negative) SARS-CoV-2 RNA (RT-PCR) Negative (Negative) Imaging Data Radiologist's impression: Impressions Chest X-Ray 08/13/24 10:53 Impression: Normal chest. ECG Data EKG #1: Attestation: I personally reviewed and interpreted this ECG as follows: ECG completion date: 08/13/24 ECG completion time: 13:16 Interpretation: NORMAL SINUS RHYTHM AT 60 BEATS PER MINUTE, MODERATE T-WAVE ABNORMALITY CONSIDER ANTERIOR ISCHEMIA, NO PREVIOUS EKG AVAILABLE FOR COMPARISON Critical Care Time Critical Care Time Critical Care Time: No Discharge Plan Discharge Clinical Impression: Influenza A Patient Disposition: NH Detention/Asst Living Condition: Stable Instructions: Influenza (ED) Additional Instructions: RETURN IF SYMPTOMS ARE WORSENING , CALL YOUR FAMILY PHYSICIAN FOR APPOINTMENT, TAKE TYLENOL NEEDED FOR ACHES AND PAIN, CONTINUE HOME MEDICATIONS. OXYCODONE 5/325 P.O. EVERY 6 HOURS NEEDED Patient Language: Greenlandic Prescriptions: New oseltamivir [Tamiflu] 75 mg capsule 75 mg PO Q12H 5 Days Qty: 10 0RF oseltamivir [Tamiflu] 75 mg capsule 75 mg PO BID Qty: 10 0RF No Action furosemide 40 mg Tablet 40 mg PO DAILY cephalexin 500 mg capsule 500 mg PO TID 5 Days Qty: 15 0RF metolazone 2.5 mg tablet 2.5 mg PO EVERY OTHER DAY metformin 500 mg tablet 500 mg PO QACDINNER tizanidine 4 mg tablet 4 mg PO TID gabapentin 400 mg capsule 400 mg PO QID levothyroxine [Synthroid] 200 mcg tablet 225 mcg PO DAILY irbesartan 300 mg tablet 300 mg PO DAILY potassium chloride [Klor-Con M20] 20 mEq tablet,ER particles/crystals 20 meq PO TID cephalexin 500 mg capsule 500 mg PO Q6H 10 Days Qty: 40 0RF tramadol 25 mg tablet 25 mg PO Q6H PRN (Reason: pain) Qty: 14 0RF Follow-up/Referrals: Richard Fisher DO [Physician] -
--- NOTE | 2024-08-13 09:52 | ECG_ITS ---
Test Date: 2024-08-13 10:01:51 Measurements Intervals [place] Rate: 60 P: 60 MA: 185 QRS: 18 QRSD: 89 T: 230 QT: 456 QTc: 457 Interpretive Statements SINUS RHYTHM MODERATE T-WAVE ABNORMALITY, CONSIDER ANTERIOR ISCHEMIA [-0.1+ mV T-WAVE IN V3/V4] No previous ECG available for comparison Electronically Signed On 08-13-2024 12:09:51 CDT by Suraj Mosquera M.D.
[2024-08-13 09:53] VITALS: BP 126/74; PULSE 62; RESP 12; TEMP 36.8; O2SAT 97
[2024-08-13 10:14] VITALS: PULSE 59
[2024-08-13 10:15] VITALS: BP 132/87; PULSE 58; RESP 12; O2SAT 96
[2024-08-13 10:30] VITALS: BP 127/85; PULSE 62; RESP 14; O2SAT 96
[2024-08-13 10:34] LABS: Prothrombin Time 13.8 Seconds (11.1-14.7)
[2024-08-13 10:35] LABS: Partial Thromboplastin Time 42.9 Seconds (22.3-36.8)
[2024-08-13 10:37] LABS: Alanine Aminotransferase 26 U/L (6-35); Albumin Level 3.6 g/dL (3.5-5.1); Alkaline Phosphatase 81 U/L (38-126); Anion Gap 6 mmol/L (4-12); Aspartate Amino Transferase 55 U/L (14-36); Bilirubin,Total 0.6 mg/dL (0.2-1.3); Blood Urea Nitrogen 8 mg/dL (7-17); Calcium 8.8 mg/dL (8.4-10.2); Carbon Dioxide 29 mmol/L (22-30); Chloride 103 mmol/L (98-107); Estimated CRCL calculation 82 ml/min; Estimated Glomerular Filt Rate > 60; Glucose 121 mg/dL (65-110); Lipase 24 U/L (23-300); Potassium 3.8 mmol/L (3.4-5.0); Sodium 138 mmol/L (137-145)
[2024-08-13 10:46] LABS: Basophils Percent Auto 0.5 % (0.2-1.2); Eosinophils Percent Auto 0.5 % (0-4.4); Hematocrit 34.3 % (37.0-47.0); Hemoglobin 10.8 g/dL (12.0-15.0); Immature Granulocyte Absolute 0.01 K/mm3 (0.00-0.031); Immature Granulocyte Percent A 0.5 % (0-0.5); Immature Platelet Fraction Pct 6.9 % (0.9-11.2); Lymphocytes Absolute Auto 0.57 K/mm3 (0.9-3.2); Lymphocytes Percent Auto 25.8 % (18.3-44.2); Mean Corpuscular HGB Conc 31.5 g/dl (32-36); Mean Corpuscular Hemoglobin 28.1 pg (26-34); Mean Corpuscular Volume 89.3 fl (80-100); Mean Platelet Volume 11.1 fl (7.4-10.4); Monocytes Absolute Auto 0.1 K/mm3 (0.1-0.6); Monocytes Percent Auto 5.9 % (2.6-8.5); Neutrophils Absolute Auto 1.5 K/mm3 (1.3-6.7); Neutrophils Percent Auto 66.8 % (45.5-73.1); Platelet Count Result 130 k/mm3 (150-375); Red Blood Count 3.84 M/mm3 (4.2-5.4); White Blood Count 2.2 K/mm3 (4.5-10.0)
[2024-08-13 10:49] LABS: Troponin I < 0.012 ng/mL (0.000-0.034)
[2024-08-13 11:00] LABS: Influenza A QL RT-PCR Positive (Negative); Influenza B QL RT-PCR Negative (Negative); RSV RNA, RT-PCR Negative (Negative); SARS-CoV-2 RNA PCR Negative (Negative)
[2024-08-13 11:47] LABS: NT Pro B Type Natriuretic Pept 852 pg/mL (19.9-100)
--- OUTSIDE RECORDS SUMMARY | 2024-08-13 11:49 | XMS_ITS | Referral Summary ---
[facility] Address [address] [place] [address] Care Team Providers Care Range Ecologist Name Role Phone Hardik Andres MD Primary Care Provider [phone] Encounters Date Type Department Care Team Description 07/29/2024 12:50 PM GLOBAL ACCOUNT DIRECTOR - 08/08/2024 5:58 PM CDT Hospital Encounter [address] [phone] Ernesto Edwards MD Siegler, MD Amador Avlia, MD Dustin Zepeda, MD Sherman Acuña, MD Rhona Eng, MD Don Vasques, MD Bismark Wade, Smith Henderson MD Hypokalemia (Primary Dx); Hypothyroidism, unspecified type; NSTEMI (non-ST elevated myocardial infarction) (HCC) Discharge Disposition: Discharge to SNF 08/06/2024 1:00 PM CDT Ancillary Procedure [facility] IP [address] [facility] [address] [place] [address] 07/31/2024 Results Follow-Up [facility] Emergency Department [address] [place] [address] Declan Malhotra RN from Last 3 Months Allergies No known active allergies Medications polyethylene glycol (MIRALAX) 17 gram packet Take 1 packet (17 g total) by mouth 2 (two) times a day [address] (PROTONIX) 40 mg EC tablet Take 1 tablet (40 mg total) by mouth daily Active sertraline (ZOLOFT) 25 mg tablet Take 1 tablet (25 mg total) by mouth daily Active metoprolol XL (TOPROL-XL) 25 mg extended release tablet Take 1 tablet (25 mg total) by mouth daily Active gabapentin (NEURONTIN) 300 mg capsule Take 1 capsule (300 mg total) by mouth 2 (two) times a day 5 026 Active levothyroxine (SYNTHROID) 200 mcg tablet Take 1 tablet (200 mcg total) by mouth president/gm production & live experiences before breakfast 5 Active aspirin 81 mg enteric coated tablet Take 1 tablet (81 mg total) by mouth daily 5 026 Active atorvastatin (LIPITOR) 40 mg tablet Take 1 tablet (40 mg total) by mouth nightly 5 026 Active empagliflozin (JARDIANCE) 10 mg tabletIndications :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 Take 1 tablet (10 mg total) by mouth daily 5 Active spironolactone (ALDACTONE) 25 mg tablet Take 1 tablet (25 mg total) by mouth daily 5 026 Active traZODone (DESYREL) 50 mg tablet Take 1 tablet (50 mg total) by mouth nightly as needed for sleep 5 025 Active gabapentin (NEURONTIN) 400 mg capsule Take 1 capsule (400 mg total) by mouth 3 (three) times a day 4 025 Discontin ued(Stop Taking at Discharge ) levothyroxine (SYNTHROID) 75 mcg tablet Take 200 mcg by mouth daily 4 025 Discontin ued(Stop Taking at Discharge ) oxyCODONE (ROXICODONE) 5 mg immediate release tablet Take 1 tablet (5 mg total) by mouth every 4 (four) hours as needed 4 025 Discontin ued(Stop Taking at Discharge ) Klor-Con M20 20 mEq CR tablet Take 1 tablet (20 mEq total) by mouth daily 4 025 Discontin ued(Stop Taking at Discharge ) senna-docusate (PERICOLACE) 8.6-50 mg Take 2 tablets by mouth 2 (two) times a day 025 Discontin ued(Stop Taking at Discharge ) oxyCODONE ER (OxyCONTIN) 30 mg tablet,oral only,ext.rel.12 hr Take 1 tablet (30 mg total) by mouth every 12 (twelve) hours 025 Discontin ued(Stop Taking at Discharge ) furosemide (LASIX) 20 mg tablet Take 1 tablet (20 mg total) by mouth daily 025 Discontin ued(Stop Taking at Discharge ) methocarbamoL (ROBAXIN) 750 mg tablet Take 1 tablet (750 mg total) by mouth 4 (four) times a day as needed for muscle spasms 025 Discontin ued(Stop Taking at Discharge ) ipratropium-albut Catracho (COMBIVENT RESPIMAT) 20-100 mcg/actuation inhalerIndication s:Chronic Obstructive Pulmonary Disease with Bronchospasms Inhale 1 puff 4 (four) times a day 025 Discontin ued(Stop Taking at Discharge ) midodrine (PROAMATINE) 5 mg tabletIndications :Symptomatic Orthostatic Hypotension Take 1 tablet (5 mg total) by mouth 3 (three) times a day 025 Discontin ued(Stop Taking at Discharge ) Active Problems Problem Noted Date Diagnosed Date Hypokalemia 07/31/2024 Acute bilateral low back pain with bilateral sci atica 03/20/2024 Assessment & Plan (03/20/2024 9:59 AM CDT): Status post hospitalization with an L1 compression fracture - Continue MS Contin 30mg BID + oxycodone 7.5mg Q4H PRN - Acetaminophen 1000mg Q8H PRN - Continue gabapentin 400mg TID - Continue Robaxin 500mg Q8H - TLSO brace when out of bed - Follow with orthopedic surgery outpatient 4 weeks (around March 11) Patient to follow up with Patient to continue physical and occupational therapy Simple chronic bronchitis 03/20/2024 Assessment & Plan (03/20/2024 10:04 AM CDT): Patient has not had no exacerbations. She does have tobacco abuse. We will continue to monitor patient and help with medicine with anxiety. He was not want a packed. Patient to continue Combivent inhaler ACP (advance care planning) 03/20/2024 Assessment & Plan (03/20/2024 10:05 AM CDT): Patient is a full code Primary hypertension 03/20/2024 Assessment & Plan (03/20/2024 10:07 AM CDT): Patient's blood pressure is 130/80 patient to continue losartan Muscle weakness (generalized) 03/20/2024 Assessment & Plan (03/20/2024 10:31 AM CDT): Patient will be discharged home with home health orders with RN/PT/OT to evaluate and treat. The patient is homebound because of her gait instability. She was unable to use a cane or a walker and is unable to leave home safely because she requires use of a wheelchair device and assistance of her daughter and son to leave home. Her son's house is wheelchair accessible. The patient will require home health nursing for instruction observation assessment. PT/OT for training to restore to safe independent functional ambulation back in the community and OT for training to improve ability to fulfill ADLs COPD, frequent exacerbations 03/09/2024 Assessment & Plan (03/12/2024 11:44 AM CDT): Denies shortness of breath. Continue Combivent inhaler. Assessment & Plan (03/09/2024 12:02 PM CDT): Continue Combivent. Stable. Streptococcal bacteremia 03/06/2024 Assessment & Plan (03/20/2024 10:29 AM CDT): positive blood cx 02/10. Repeat blood cx 02/12 no growth. 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 Suspect skin as source. PICC line placed 02/18. ID consulted - continue IV Rocephin 2g QD until 03/11/24. Check CBC, CMP, CRP weekly when on IV abx and fax to Dr. Roach at [phone]. Remove PICC line at end of treatment. Patient has completed therapy spoke to Dr. Roach PICC line was removed. She will follow-up with her primary care physician Assessment & Plan (03/12/2024 11:44 AM CDT): Afebrile. Reviewed CBC and BMP, both are (unremarkable) Continue ceftriaxone IV. Assessment & Plan (03/09/2024 11:59 AM CDT): Afebrile. Continue ceftriaxone IV. Assessment & Plan (03/20/2024 10:00 AM CDT): positive blood cx 02/10. Repeat blood cx 02/12 no growth. 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 Suspect skin as source. PICC line placed 02/18. ID consulted - continue IV Rocephin 2g QD until 03/11/24. Check CBC, CMP, CRP weekly when on IV abx and fax to Dr. Roach at [phone]. Remove PICC line at end of treatment. Closed compression fracture of body of L1 verteb ra 03/06/2024 Assessment & Plan (03/20/2024 10:30 AM CDT): MRI 02/11 with acute L1 compression fracture. Orthopedic surgery consulted - recommended PT/OT, wearing TLSO brace when out of bed, f/u with Dr. Perkins outpatient in 4 weeks for repeat XR (around 03/11/24). Continue oxycontin SR 30mg BID, oxycodone 5mg q4hrs PRN. Could not tolerate Robaxin or MS Contin due to herhypotension. Noted pelvic/retroperitoneal lymphadenopathy on CT 02/12. Consider repeat CT A/P w/ contrast in 3 months (around 04/2024) or malignancy evaluation as outpatient. Patient is to follow-up with orthopedics in the next week Assessment & Plan (03/12/2024 11:43 AM CDT): Reports 7/10 pain. Continue Oxycdone. Assessment & Plan (03/09/2024 11:58 AM CDT): Continue TLSO brace. Continue oxycodone and gabapentin Assessment & Plan (03/06/2024 10:26 AM CDT): MRI 02/11 with acute L1 compression fracture. Orthopedic surgery consulted - recommended PT/OT, wearing TLSO brace when out of bed, f/u with Dr. Perkins outpatient in 4 weeks for repeat XR (around 03/11/24). Continue oxycontin SR 30mg BID, oxycodone 5mg q4hrs PRN. Could not tolerate Robaxin or MS Contin due to herhypotension. Noted pelvic/retroperitoneal lymphadenopathy on CT 02/12. Consider repeat CT A/P w/ contrast in 3 months (around 04/2024) or malignancy evaluation as outpatient. Hypothyroidism (acquired) 03/06/2024 Assessment & Plan (03/06/2024 10:28 AM CDT): Continue levothyroxine TSH level Generalized anxiety disorder 03/06/2024 Assessment & Plan (03/20/2024 10:02 AM CDT): Patient is due trazodone scheduled with a 14 day supply of Xanax p.r.n. for anxiety. Patient not do a GDR this particular time since he was on her stressor being in a facility with IV antibiotics as well as physical and occupational therapy Social History Tobacco Use Types Packs/Day Years Used Date Smoking Tobacco: Every Day Cigarettes Tobacco Cessation:Ready to Q uit: Not Asked; Counseling Given: Not Answered [facility] Utilities Answer Date Recorded In the past 12 months has [employer], [employer], or water [employer] threatened to shut off services in your home? No 08/03/2024 Social Connection and Isolat ion Panel [NHANES] Answer Date Recorded In a typical week, how many times do you talk on the phone with family, friends, or neighbors? More than three times a week 08/03/2024 How often do you get togethe r with friends or relatives? More than three times a week 08/03/2024 How often do you attend [facility] or orthodox services? More than 4 times per year 08/03/2024 Do you belong to any clubs o r organizations such as yazidi groups, unions, fraternal or athletic groups, or school groups? Yes 08/03/2024 How often do you attend meet ings of the clubs or organizations you belong to? Never 08/03/2024 Are you , , di vorced, , never , or living with a partner? 08/03/2024 Overall Financial Resource Strain (CARDIA) Answe r Date Recorded How hard is it for you to pa y for the very basics like food, housing, medical care, and heating? Not hard at all 08/03/2024 PHQ-2 Answer Date Recorded PHQ-2 Total Score 1 08/03/2024 Hunger Vital Sign Answer Date Recorded Within the past 12 months, y ou worried that your food would run out before you got the money to buy more. Never true 08/04/19 25 Within the past 12 months, t he food you bought just didn't last and you didn't have money to get more. Never true 08/03/2024 PRAPARE - Transportation Answer Date Re corded In the past 12 months, has l ack of transportation kept you from medical appointments or from getting medications? No 07/25 In the past 12 months, has l ack of transportation kept you from meetings, work, or from getting things needed for daily living? No 08/03/2024 Housing Stability Vital Sign Answer Etienne e Recorded In the last 12 months, was t here a time when you were not able to pay the mortgage or rent on time? No 08/03/2024 In the past 12 months, how m any times have you moved where you were living? 0 08/03/2024 At any time in the past 12 m [facility], were you homeless or living in a fdc (including now)? No 08/03/2024 Personal Safety Answer Date Recorded Have you ever been in or are you currently in a harmful physical or emotional relationship or is someone making you feel afraid or unsafe? Denies 07/29/2024 Comments Unknown Sex and Gender Information Value Date Recorded Sex Assigned at Not on file Legal Sex Female 2:34 PM CDT Gender Identity Not on file Sexual Orientation Not on file Last Filed Vital Signs Vital Sign Reading Time Taken Comments Blood Pressure 100/54 08/08/2024 3:10 PM CDT Pulse 70 08/08/2024 3:10 PM CDT Temperature 36.2 C (97.2 F) 08/08/2024 3:10 PM CDT Respiratory Rate 18 08/08/2024 3:10 PM CDT Oxygen Saturation 94% 08/08/2024 3:10 PM CDT Inhaled Oxygen Concentration - - Weight 98.6 kg (217 lb 6 oz) 08/08/2024 5:20 AM CDT Height 152.4 cm (5') 08/01/2024 9:50 PM GLOBAL ACCOUNT DIRECTOR Body Mass Index 42.45 08/01/2024 9:50 PM GLOBAL ACCOUNT DIRECTOR Plan of Treatment Not on file Procedures Procedure Name Priority Date/Time Associated Diagnosis Comments EGFR Routine 08/07/2024 9:33 PM CDT CBC WITHOUT DIFFERENTIAL Routine 08/07/2024 9:33 PM CDT BASIC METABOLIC PANEL Routine 08/07/2024 9:33 PM CDT PEP THERAPY Routine 08/07/2024 8:51 PM CDT PEP THERAPY Routine 08/07/2024 8:51 PM CDT PEP THERAPY Routine 08/07/2024 8:51 PM CDT EGFR Routine 08/06/2024 11:37 PM CDT CBC WITHOUT DIFFERENTIAL Routine 08/06/2024 11:37 PM CDT BASIC METABOLIC PANEL Routine 08/06/2024 11:37 PM CDT US VEIN DUPLEX LOWER EXTREMITY BILATERAL COMPLETE IP Routine 08/06/2024 3:53 PM CDT INFLUENZA A/B, RSV, AND COVID-19 PCR Routine 08/06/2024 2:05 PM CDT URINALYSIS, MICROSCOPIC ONLY Routine 08/06/2024 1:04 AM CDT URINALYSIS AND REFLEX TO MICROSCOPIC AND CULTURE Routine 08/06/2024 1:04 AM CDT LACTATE STAT 08/06/2024 12:34 AM CDT XR CHEST 1 VIEW IP Routine 08/05/2024 11:27 PM CDT BLOOD CULTURE Routine 08/05/2024 10:54 PM CDT BLOOD CULTURE Routine 08/05/2024 10:54 PM CDT EGFR Routine 08/05/2024 10:15 PM CDT CBC WITHOUT DIFFERENTIAL Routine 08/05/2024 10:15 PM CDT BASIC METABOLIC PANEL Routine 08/05/2024 10:15 PM CDT LACTATE STAT 08/05/2024 9:07 AM CDT LACTATE Timed 08/05/2024 3:10 AM CDT EGFR Routine 08/04/2024 11:50 PM CDT TROPONIN I HIGH-SENSITIVITY STAT 08/04/2024 11:50 PM CDT LACTATE, WHOLE BLOOD STAT 08/04/2024 11:50 PM CDT CBC WITHOUT DIFFERENTIAL Routine 08/04/2024 11:50 PM CDT BASIC METABOLIC PANEL Routine 08/04/2024 11:[address] HEAD WO CONTRAST IP Routine 08/04/2024 1 1:28 AM CDT EGFR Routine 08/03/2024 10:20 PM CDT CBC WITHOUT DIFFERENTIAL Routine 08/03/2024 10:20 PM CDT MAGNESIUM Routine 08/03/2024 10:20 PM CDT BASIC METABOLIC PANEL Routine 08/03/2024 10:20 PM CDT TRANSTHORACIC ECHO (TTE) COMPLETE W DOPPLER/CF W CONTRAST STAT 08/03/2024 10:04 AM CDT LACTATE Timed 08/03/2024 4:26 AM CDT LACTATE Timed 08/03/2024 12:25 AM CDT EGFR Routine 08/02/2024 8:16 PM CDT LACTATE Timed 08/02/2024 8:16 PM CDT CBC WITHOUT DIFFERENTIAL Routine 08/02/2024 8:16 PM CDT MAGNESIUM Routine 08/02/2024 8:16 PM CDT BASIC METABOLIC PANEL Routine 08/02/2024 8:16 PM CDT APTT STAT 08/02/2024 5:03 AM CDT LACTATE Timed 08/02/2024 5:03 AM CDT CRITICAL RESULT CALLBACK HEMATOLOGY STAT 08/02/2024 12:34 AM GLOBAL ACCOUNT DIRECTOR APTT STAT 08/02/2024 12:34 AM GLOBAL ACCOUNT DIRECTOR TROPONIN I HIGH-SENSITIVITY SERIES (BASELINE, 2HR, 4HR, 6HR) Routine 08/02/2024 12:34 AM GLOBAL ACCOUNT DIRECTOR XR CHEST 1 VIEW IP Routine 08/01/2024 10:55 PM GLOBAL ACCOUNT DIRECTOR TROPONIN I HIGH-SENSITIVITY Timed 08/01/2024 10:40 PM GLOBAL ACCOUNT DIRECTOR HEMOGLOBIN A1C Routine 08/01/2024 10:34 PM GLOBAL ACCOUNT DIRECTOR EGFR Routine 08/01/2024 10:34 PM GLOBAL ACCOUNT DIRECTOR CALCIUM, IONIZED Timed 08/01/2024 10:3 4 PM GLOBAL ACCOUNT DIRECTOR IRON PROFILE W/ IBC Routine 08/01/2024 1 0:34 PM GLOBAL ACCOUNT DIRECTOR FERRITIN Routine 08/01/2024 10:34 PM GLOBAL ACCOUNT DIRECTOR CBC WITHOUT DIFFERENTIAL Routine 08/01/2024 10:34 PM GLOBAL ACCOUNT DIRECTOR MAGNESIUM Routine 08/01/2024 10:34 PM GLOBAL ACCOUNT DIRECTOR COMPREHENSIVE METABOLIC PANEL Routine 08/01/2024 10:34 PM GLOBAL ACCOUNT DIRECTOR LACTATE Routine 08/01/2024 10:34 PM GLOBAL ACCOUNT DIRECTOR RESPIRATORY PATHOGEN PANEL Routine 08/01/2024 10:34 PM GLOBAL ACCOUNT DIRECTOR POCT LACTATE - DEVICE Routine 08/01/2024 9:00 PM GLOBAL ACCOUNT DIRECTOR TROPONIN I HIGH-SENSITIVITY 6-HOUR Timed 08/01/2024 8:57 PM GLOBAL ACCOUNT DIRECTOR MD CRITICAL CARE ILL/INJURED PATIENT INIT 30-74 MIN Routine 08/01/2024 6:54 PM GLOBAL ACCOUNT DIRECTOR TROPONIN I HIGH-SENSITIVITY 4-HOUR Timed 08/01/2024 5:53 PM GLOBAL ACCOUNT DIRECTOR ECG 12-LEAD Routine 08/01/2024 4:17 PM GLOBAL ACCOUNT DIRECTOR CRITICAL RESULT CALLBACK CARDIO CHEM Timed 08/01/2024 4:15 PM GLOBAL ACCOUNT DIRECTOR TROPONIN I HIGH-SENSITIVITY 2-HOUR Timed 08/01/2024 4:15 PM GLOBAL ACCOUNT DIRECTOR ECG 12-LEAD Routine 08/01/2024 3:21 PM GLOBAL ACCOUNT DIRECTOR MD CRITICAL CARE ILL/INJURED PATIENT INIT 30-74 MIN Routine 08/01/2024 3:00 PM GLOBAL ACCOUNT DIRECTOR BLOOD GAS, ARTERIAL Routine 08/01/2024 2 :44 PM GLOBAL ACCOUNT DIRECTOR EGFR STAT 08/01/2024 2:28 PM GLOBAL ACCOUNT DIRECTOR CRITICAL RESULT CALLBACK CHEMISTRY Routine 08/01/2024 2:28 PM GLOBAL ACCOUNT DIRECTOR CALCIUM, IONIZED STAT 08/01/2024 2:28 PM GLOBAL ACCOUNT DIRECTOR LACTATE Routine 08/01/2024 2:28 PM GLOBAL ACCOUNT DIRECTOR PRO B-TYPE NATRIURETIC PEPTIDE STAT 08/01/2024 2:28 PM GLOBAL ACCOUNT DIRECTOR PHOSPHORUS STAT 08/01/2024 2:28 PM GLOBAL ACCOUNT DIRECTOR MAGNESIUM STAT 08/01/2024 2:28 PM GLOBAL ACCOUNT DIRECTOR COMPREHENSIVE METABOLIC PANEL STAT 08/01/2024 2:28 PM GLOBAL ACCOUNT DIRECTOR APTT STAT 08/01/2024 2:19 PM GLOBAL ACCOUNT DIRECTOR CBC WITHOUT DIFFERENTIAL STAT 08/01/2024 2:19 PM GLOBAL ACCOUNT DIRECTOR PROTIME-INR STAT 08/01/2024 2:19 PM GLOBAL ACCOUNT DIRECTOR POTASSIUM, WHOLE BLOOD STAT 08/01/2024 1:59 PM GLOBAL ACCOUNT DIRECTOR TROPONIN I HIGH-SENSITIVITY SERIES (BASELINE, 2HR, 4HR, 6HR) STAT 08/01/2024 1:58 PM GLOBAL ACCOUNT DIRECTOR ECG 12-LEAD STAT 08/01/2024 1:[address] CHEST PE W CONTRAST ED 08/01/2024 12:36 PM GLOBAL ACCOUNT DIRECTOR POCT GLUCOSE DEVICE Routine 07/31/2024 6 :11 AM GLOBAL ACCOUNT DIRECTOR URINALYSIS, MICROSCOPIC ONLY STAT 07/30/2024 12:36 AM GLOBAL ACCOUNT DIRECTOR URINE CULTURE STAT 07/30/2024 12:36 AM GLOBAL ACCOUNT DIRECTOR URINALYSIS AND REFLEX TO MICROSCOPIC AND CULTURE STAT 07/30/2024 12:36 AM GLOBAL ACCOUNT DIRECTOR ED PERIPHERAL LINE INSERTION Routine 07/29/2024 2:37 PM GLOBAL ACCOUNT DIRECTOR POCUS CVC 07/29/2024 2:19 PM GLOBAL ACCOUNT DIRECTOR EGFR STAT 07/29/2024 2:16 PM GLOBAL ACCOUNT DIRECTOR T4, FREE STAT 07/29/2024 2:16 PM GLOBAL ACCOUNT DIRECTOR DIFFERENTIAL AUTO STAT 07/29/2024 2:1 6 PM GLOBAL ACCOUNT DIRECTOR TROPONIN I HIGH-SENSITIVITY SERIES (BASELINE, 2HR, 4HR, 6HR) STAT 07/29/2024 2:16 PM GLOBAL ACCOUNT DIRECTOR THYROID FUNCTION CASCADE STAT 07/29/2024 2:16 PM GLOBAL ACCOUNT DIRECTOR PRO B-TYPE NATRIURETIC PEPTIDE STAT 07/29/2024 2:16 PM GLOBAL ACCOUNT DIRECTOR COMPREHENSIVE METABOLIC PANEL STAT 07/29/2024 2:16 PM GLOBAL ACCOUNT DIRECTOR CBC WITH AUTO DIFFERENTIAL STAT 07/29/2024 2:16 PM GLOBAL ACCOUNT DIRECTOR XR CHEST 1 VIEW ED 07/29/2024 2:00 PM GLOBAL ACCOUNT DIRECTOR ECG 12-LEAD STAT 07/29/2024 1:49 PM GLOBAL ACCOUNT DIRECTOR from Last 3 Months Results * eGFR (08/07/2024 9:33 PM CDT) [facility] eGFR 64 >=60 mL/min/1. 73 m2 Comment: Interpretive Data Reference Interval Normal >/= 90 mL/min/1.73m2 Mildly decreased* 60 - 89 mL/min/1.73m2 Mildly to moderately decreased 45 - 59 mL/min/1.73m2 Moderately to severely decreased 30 - 44 mL/min/1.73m2 Severely decreased 15 - 29 mL/min/1.73m2 Kidney Failure < 15 mL/min/1.73m2 *Relative to young adult level Estimated glomerular filtration rate is determined by the 2020 CKD-EPI equation recommended by the National Kidney Foundation (A Unifying Approach to GFR Estimation: Recommendations of the NKF-ASK Task Force on Reassessing the Inclusion of Race in Diagnosing Kidney Disease, JASN 2020). The CKD-EPI equation should not be used for patients with unstable renal function and has not been validated in children and those over 70. Current interpretive data was last reviewed 2021. Blood 08/07/2024 9:33 PM CDT 08/07/2024 10:45 PM CDT us Raquel Ochoa MD LAB BLOOD ORDERAB LES Final Result [facility] [place] [address] * (ABNORMAL) CBC without differential (08/07/2024 9:33 PM CDT) WBC 3.1(L) 3.8 - 9.9 K/cumm Hgb 9.1(L) 11.9 - 15.5 g/dL [facility] Hct 29.6(L) 35.6 - 45.5 % [facility] Plt 130(L) 150 - 400 K/cumm [facility] MPV 12.1 9.1 - 12.3 fL [facility] RBC 3.35(L) 3.90 - 5.20 M/cumm [facility] MCV 88.4 81.3 - 96.4 fL [facility] MCH 27.2 27.1 - 33.3 pg [facility] MCHC 30.7(L) 32.3 - 35.7 g/dL [facility] RDW CV 17.8(H) 11.1 - 14.9 % [facility] RDW SD 56.4(H) 35.7 - 48.1 fL [facility] NRBC abs 0.00 0.00 - 0.01 K/cumm [facility] Blood 08/07/2024 9:33 PM CDT 08/07/2024 10:46 PM CDT Raquel Ochoa MD LAB BLOOD ORDERAB LES Final Result Performing Organization Address [facility]/ZIP Co de Phone Number [facility] Department [place] [address] * (ABNORMAL) Basic metabolic panel (08/07/2024 9:33 PM CDT) [facility] Sodium 137 135 - 145 mmol/L Potassium, pl 4.3 3.3 - 4.9 mmol/L [facility] Chloride 102 97 - 110 mmol/L [facility] CO2 28 22 - 32 mmol/L [facility] Anion gap 7 2 - 15 mmol/L [facility] BUN 15 6 - 25 mg/dL [facility] Creatinine 0.98 0.60 - 1.10 mg/dL [facility] Glucose 102 70 - 199 mg/dL [facility] Comment: Interpretive Data Fasting glucose >/= 126 mg/dl is diagnostic for diabetes. Fasting is defined as no caloric intake for at least 8 hours. Fasting glucose between 100 mg/dl to 125 mg/dl is diagnostic of prediabetes. In a patient with classic symptoms of hyperglycemia or hyperglycemic crisis, a random glucose >/= 200 mg/dl is diagnostic for diabetes. In the absence of unequivocal hyperglycemia, results should be confirmed by repeat testing. The classification and Diagnosis of Diabetes Diabetes Care 202; 46: S19-S40. Current interpretive data was last revised 2022. Calcium 8.4(L) 8.5 - 10.3 mg/dL [facility] Blood 08/07/2024 9:33 PM CDT 08/07/2024 10:45 PM CDT Raquel Ochoa MD LAB BLOOD ORDERAB LES Final Result Performing Organization Address [facility] Co de Phone Number [facility] Department [place] [address] * eGFR (08/06/2024 11:37 PM CDT) Pathologist [facility] eGFR 62 >=60 mL/min/1. 73 m2 Comment: Interpretive Data Reference Interval Normal >/= 90 mL/min/1.73m2 Mildly decreased* 60 - 89 mL/min/1.73m2 Mildly to moderately decreased 45 - 59 mL/min/1.73m2 Moderately to severely decreased 30 - 44 mL/min/1.73m2 Severely decreased 15 - 29 mL/min/1.73m2 Kidney Failure < 15 mL/min/1.73m2 *Relative to young adult level Estimated glomerular filtration rate is determined by the 2020 CKD-EPI equation recommended by the National Kidney Foundation (A Unifying Approach to GFR Estimation: Recommendations of the NKF-ASK Task Force on Reassessing the Inclusion of Race in Diagnosing Kidney Disease, JASN 2020). The CKD-EPI equation should not be used for patients with unstable renal function and has not been validated in children and those over 70. Current interpretive data was last reviewed 2021. Blood 08/06/2024 11:3 7 PM CDT 08/07/2024 12:25 AM CDT Raquel Ochoa MD LAB BLOOD ORDERAB LES Final Result Performing Organization Address [facility] Co de Phone Number [facility] Department [place] [address] * (ABNORMAL) CBC without differential (08/06/2024 11:37 PM CDT) [facility] WBC 2.9(L) 3.8 - 9.9 K/cumm Hgb 9.1(L) 11.9 - 15.5 g/dL [facility] Hct 28.6(L) 35.6 - 45.5 % [facility] Plt 133(L) 150 - 400 K/cumm [facility] MPV 11.8 9.1 - 12.3 fL [facility] RBC 3.23(L) 3.90 - 5.20 M/cumm [facility] MCV 88.5 81.3 - 96.4 fL [facility] MCH 28.2 27.1 - 33.3 pg [facility] MCHC 31.8(L) 32.3 - 35.7 g/dL [facility] RDW CV 17.5(H) 11.1 - 14.9 % [facility] RDW SD 55.5(H) 35.7 - 48.1 fL [facility] NRBC abs 0.00 0.00 - 0.01 K/cumm [facility] Blood 08/06/2024 11:3 7 PM CDT 08/07/2024 12:25 AM CDT us Raquel Ochoa MD LAB BLOOD ORDERAB LES Final Result [facility] Department [place] [address] * (ABNORMAL) Basic metabolic panel (08/06/2024 11:37 PM CDT) Sodium 139 135 - 145 mmol/L Potassium, pl 4.0 3.3 - 4.9 mmol/L [facility] Chloride 103 97 - 110 mmol/L [facility] CO2 28 22 - 32 mmol/L [facility] Anion gap 8 2 - 15 mmol/L [facility] [facility]UN 19 6 - 25 mg/dL [facility] Creatinine 1.01 0.60 - 1.10 mg/dL [facility] Glucose 111 70 - 199 mg/dL [facility] Comment: Interpretive Data Fasting glucose >/= 126 mg/dl is diagnostic for diabetes. Fasting is defined as no caloric intake for at least 8 hours. Fasting glucose between 100 mg/dl to 125 mg/dl is diagnostic of prediabetes. In a patient with classic symptoms of hyperglycemia or hyperglycemic crisis, a random glucose >/= 200 mg/dl is diagnostic for diabetes. In the absence of unequivocal hyperglycemia, results should be confirmed by repeat testing. The classification and Diagnosis of Diabetes Diabetes Care 2021; 46: S19-S40. Current interpretive data was last revised 2022. Calcium 7.8(L) 8.5 - 10.3 mg/dL [facility] Blood 08/06/2024 11:3 7 PM CDT 08/07/2024 12:25 AM CDT us Raquel Ochoa MD LAB BLOOD ORDERAB LES Final Result [facility] [place] [address] * US Vein Duplex Lower Extremity Bilateral Complete (08/06/2024 3:53 PM CDT) Anatomical Region Laterality Modality Vascular Bilateral Ultrasound 08/06/2024 2:26 PM CDT Narrative 08/06/2024 9:55 PM CDT [facility] - Department of Vascular Surgery, Vascular Laboratory [address] [place] [address] Lower Extremity Venous Ultrasound Report Patient Name: ALISHA MONTENEGRO : 1960 (64y ) Study Date: 08/06/2024 2:26:17 PM Gender: F Tech: Location: [id number] Ref Provider: SMITH SOFIA Quality: Adequate Order Provider: SMITH SOFIA PROCEDURES: Vascular Report: Venous Duplex imaging was performed bilaterally in the lower extremities. The common femoral, femoral, popliteal, posterior tibial, peroneal veins were evaluated for patency, spontaneity and phasicity with Doppler, compression and augmentation maneuvers. Great saphenous vein proximal at the junction was evaluated with compression maneuvers. INDICATIONS: fever, chronic lymphedema, c/f dvt - FINDINGS: Performing Multi Spindle Operator: Alis Silva RVT. Bilateral: Venous Doppler signals in the bilateral lower extremity are within normal limits for spontaneity and phasicity and respond normally to augmentation maneuvers. No evidence of deep vein thrombus by duplex, proximal to the calf. Comments: Unable to evaluate the left distal calf veins due to wounds with overlying bandaging. Technically difficult and limited study due to patient body habitus and depth of vessels. Unable to visualize deep calf veins secondary to depth of vessels and edema. CONCLUSIONS: 1. There is no evidence of acute deep vein thrombosis in the lower extremities bilaterally. Noninvasive venous studies cannot rule out isolated calf vein obstruction. HISTORY: COPD, hypokalemia, HTN, chronic lymphedema. PREVIOUS STUDIES: Previous study performed on 03/25/20 negative B/L. DISCLAIMER: The study images and the final report will be retained in the patient chart by the Vascular Laboratory for the legally required time period. This chart constitutes the legal record of any testing performed. ATTESTATION: I have reviewed and interpreted the pertinent images and measurements of this study. I attest to the conclusions in the final report that is provided above. Electronically Signed By: Gilberto Brown MD [facility] [phone] 08/06/2024 9:09:36 PM CDT Procedure Note Gilberto Brown MD - 08/06/2024 [facility] - Department of Vascular Surgery,Vascular Laboratory [address] [place] [id number] Lower Extremity Venous Ultrasound Report Patient Name: ALISHA MONTENEGRO : 1960 (64y ) Study Date: 08/06/2024 2:26:17 PM Gender: F Tech: Location: [id number] Ref Provider: SMITH SOFIA Quality: Adequate Order Provider: SMITH SOFIA PROCEDURES: Vascular Report: Venous Duplex imaging was performed bilaterally in the lower extremities.The common femoral, femoral, popliteal, posterior tibial, peroneal veins wereevaluated for patency, spontaneity and phasicity with Doppler, compression and augmentationmaneuvers. Great saphenous vein proximal at the junction was evaluated with compressionmaneuvers. INDICATIONS: fever, chronic lymphedema, c/f dvt - FINDINGS: Performing Multi Spindle Operator: Alis Silva RVT. Bilateral: Venous Doppler signals in the bilateral lower extremity are within normallimits for spontaneity and phasicity and respond normally to augmentation maneuvers.No evidence of deep vein thrombus by duplex, proximal to the calf. Comments: Unable to evaluate the left distal calf veins due to wounds with overlyingbandaging. Technically difficult and limited study due to patient body habitus anddepth of vessels. Unable to visualize deep calf veins secondary to depth of vessels andedema. CONCLUSIONS: 1. There is no evidence of acute deep vein thrombosis in the lowerextremities bilaterally. Noninvasive venous studies cannot rule out isolated calf veinobstruction. HISTORY: COPD, hypokalemia, HTN, chronic lymphedema. PREVIOUS STUDIES: Previous study performed on 03/25/20 negative B/L. DISCLAIMER: The study images and the final report will be retained in the patientchart by the Vascular Laboratory for the legally required time period. This chartconstitutes the legal record of any testing performed. ATTESTATION: I have reviewed and interpreted the pertinent images and measurements ofthis study. I attest to the conclusions in the final report that is provided above. Electronically Signed By: Gilberto Borwn MD [facility] [phone] 08/06/2024 9:09:36 PM CDT Smith Sofia MD IM US PROCEDURES Otilia l Result * Influenza A/B, RSV, and COVID-19 PCR Nasopharyngeal (08/06/2024 2:05 PM CDT) Pathologist [facility] COVID-19 RNA Negative Negative [facility] Influenza A RNA Negative Negative [facility] Influenza B RNA Negative Negative [facility] RSV RNA Negative Negative [facility] Comment: Interpretive data: Testing performed by [facility] ([phone]). This test is performed using the [employer] Xpert Xpress CoV-2/Flu/RSV plus assay. This is a multiplex, real-time reverse transcriptase PCR assay intended for the qualitative detection of nucleic acid from SARS-CoV-2, influenza A, influenza B, and respiratory syncytial virus. This assay has been cleared by the [place] Food and Drug administration. The performance characteristics have been verified by the [facility]. Results must be considered in the clinical context, and a negative result does not rule out infection. Interpretive Data last revised 2023 Nasopharyngeal 08/06/2024 2: 05 PM CDT 08/06/2024 3:00 PM CDT Narrative [facility] - 08/06/2024 3:47 PM CDT Is the Patient experiencing symptoms consistent with COVID?->No Smith Sofia MD LAB MICROBIOLOGY - GEN ERAL ORDERABLES Final Result [facility] [place] [address] [facility] * (ABNORMAL) Urinalysis reflex to microscopic and culture Urine, clean voided (08/06/2024 1:04 AM CDT) Color, ur Yellow Yellow Clarity, ur Clear Clear [facility] Specific gravity, ur 1.029 1.003 - 1.030 [facility] pH, urine 6.0 [facility] Comment: Interpretive Data U rine pH is affected by diet, medications, systemic acid-base disturbances, and renal tubular function. pH may affect urinary stone formation. For example, urine pH below 6.0 may help reduce the tendency for calcium phosphate stones and pH greater than 6.0 may reduce the tendency for uric acid stone formation. Source: [facility] [employer] Current Interpretive Data was last revised on 2017 Protein, ur ql 1+(A) Negative [facility] Glucose, ur ql 4+(A) Negative [facility] Ketones, ur Negative Negative [facility] Bilirubin, ur Negative Negative [facility] Blood, ur Negative Negative [facility] Urobilinogen, ur 2.0(A) <2.0 mg/dL [facility] Nitrite, ur Negative Negative [facility] Leukocyte esterase, ur Negative Negative [facility] UA reflex comment Reflex to microscopic UA will be performed. [facility] Urine, clean voided 08/06/2024 1:04 AM CDT 08/06/2024 1:17 AM CDT us Smith Sofia MD LAB MICROBIOLOGY - GEN ERAL ORDERABLES Final Result [facility] [place] [address] * (ABNORMAL) Urinalysis, microscopic only (08/06/2024 1:04 AM CDT) WBC, ur 0-5 0 - 5 /HPF RBC, ur 6-10(A) 0 - 2 /HPF [facility] Epithelial cells, squamous, ur 1-5 0 - 5 /HPF [facility] Bacteria, ur Trace(A) [facility] Hyaline casts, ur 11-20(A) 0 - 10 /LPF [facility] Culture Reflex Comment Reflex conditions for urine culture (WBC >10) not met. [facility] Urine, clean voided 08/06/2024 1:04 AM CDT 08/06/2024 1:17 AM CDT Smith Sofia MD LAB URINE ORDERABLES F inal Result Performing Organization Address [facility] de Phone Number [facility] Department [place] [address] * Lactate (08/06/2024 12:34 AM CDT) Lactate 1.1 0.7 - 2.0 mmol/L Blood 08/06/2024 12:3 4 AM CDT 08/06/2024 1:26 AM CDT Smith Sofia MD LAB BLOOD ORDERABLES F inal Result Performing Organization Address [facility] de Phone Number [facility] [place] [address] * XR Chest 1 View (08/05/2024 11:27 PM CDT) Anatomical Region Laterality Modality Body, Chest N/A Digital Radiogra phy 08/06/2024 10:3 2 AM CDT Impressions 08/06/2024 10:59 AM CDT The current study is compared with the prior radiograph dated 08/01/2024 Mild bibasilar atelectasis. Small bilateral pleural effusions. No pneumothorax. Cardiac and mediastinal contours are stable. Dictated by: Devon Alas MD The radiology attending physician has personally reviewed this study, and had reviewed and/or edited this written report and agrees with it. Electronically signed by: Wilfred Pat M.D. Narrative 08/06/2024 10:59 AM CDT EXAMINATION: 1 view chest radiograph Procedure Note Wilfred Pat MD - 03/13/2025 EXAMINATION: 1 view chest radiograph IMPRESSION: The current study is compared with the prior radiograph dated 08/01/2024 Mild bibasilar atelectasis. Small bilateral pleural effusions. No pneumothorax. Cardiac and mediastinal contours are stable. Dictated by: Devon Alas MD The radiology attending physician has personally reviewed this study, and had reviewed and/or edited this written report and agrees with it. Electronically signed by: Wilfred Pat M.D. Smith Sofia MD IMG XR PROCEDURES Otilia l Result * Blood culture Blood (08/05/2024 10:54 PM CDT) Report Final Report: No growth Blood 08/05/2024 10:5 4 PM CDT 08/06/2024 12:36 AM CDT Narrative [facility] - 08/10/2024 7:00 AM CDT From a different site than #1. Collection->Peripheral 1. Blood cultures are incubated for 4 days on a continuously monitored blood culture system. The first report of a negative culture is issued within 24 hours of receipt of the specimen in the laboratory. 2. Positive culture results are reported as soon as they are detected. 3. The most important factor for detection of microbes in the setting of bloodstream infection is the volume of blood submitted for culture. Failure to collect an optimal blood volume can result in false negative blood cultures. 4. For pediatric patients, the recommended blood volume to collect follows a weight based strategy. See the electronic test catalog for collection instructions. 5. For positive blood cultures, a rapid molecular test may be performed for organism identification using the scar ePlex blood culture identification panel for gram positive (BCID-GP) and gram negative (BCID-GN) organisms. This nucleic acid amplification test detects microbial DNA in positive blood culture broth. This assay has been cleared by the [place] Food and Drug Administration and its performance characteristics have been verified by the [facility] Microbiology Laboratory. For questions about this culture, contact the Microbiology Laboratory at [phone]. Interpretive data was last revised on 24. Smith Sofia MD LAB MICROBIOLOGY - GEN ERAL ORDERABLES Final Result Performing Organization Address City/[facility]/ZIP Co de Phone Number [facility] Department [place] [address] * Blood culture Blood (08/05/2024 10:54 PM CDT) Report Final Report: No growth Blood 08/05/2024 10:5 4 PM CDT 08/06/2024 12:36 AM CDT Narrative [facility] - 08/10/2024 7:00 AM CDT Collection->Peripheral 1. Blood cultures are incubated for 4 days on a continuously monitored blood culture system. The first report of a negative culture is issued within 24 hours of receipt of the specimen in the laboratory. 2. Positive culture results are reported as soon as they are detected. 3. The most important factor for detection of microbes in the setting of bloodstream infection is the volume of blood submitted for culture. Failure to collect an optimal blood volume can result in false negative blood cultures. 4. For pediatric patients, the recommended blood volume to collect follows a weight based strategy. See the electronic test catalog for collection instructions. 5. For positive blood cultures, a rapid molecular test may be performed for organism identification using the scar ePlex blood culture identification panel for gram positive (BCID-GP) and gram negative (BCID-GN) organisms. This nucleic acid amplification test detects microbial DNA in positive blood culture broth. This assay has been cleared by the [place] Food and Drug Administration and its performance characteristics have been verified by the [facility] Microbiology Laboratory. For questions about this culture, contact the Microbiology Laboratory at [phone]. Interpretive data was last revised on 24. us Smith Sofia MD LAB MICROBIOLOGY - GEN ERAL ORDERABLES Final Result Performing Organization Address City/[facility] Co de Phone Number [facility] Department [place] [address] * (ABNORMAL) eGFR (08/05/2024 10:15 PM CDT) eGFR 44(L) >=60 mL/min/1. 73 m2 Comment: Interpretive Data Reference Interval Normal >/= 90 mL/min/1.73m2 Mildly decreased* 60 - 89 mL/min/1.73m2 Mildly to moderately decreased 45 - 59 mL/min/1.73m2 Moderately to severely decreased 30 - 44 mL/min/1.73m2 Severely decreased 15 - 29 mL/min/1.73m2 Kidney Failure < 15 mL/min/1.73m2 *Relative to young adult level Estimated glomerular filtration rate is determined by the 2020 CKD-EPI equation recommended by the National Kidney Foundation (A Unifying Approach to GFR Estimation: Recommendations of the NKF-ASK Task Force on Reassessing the Inclusion of Race in Diagnosing Kidney Disease, JASN 2020). The CKD-EPI equation should not be used for patients with unstable renal function and has not been validated in children and those over 70. Current interpretive data was last reviewed 2021. Blood 08/05/2024 10:1 5 PM CDT 08/05/2024 11:28 PM CDT us Raquel Ochoa MD LAB BLOOD ORDERAB LES Final Result [facility] Department of Laboratories [place], [place] [id number] * (ABNORMAL) CBC without differential (08/05/2024 10:15 PM CDT) WBC 3.8 3.8 - 9.9 K/cumm Hgb 9.5(L) 11.9 - 15.5 g/dL [facility] Hct 29.8(L) 35.6 - 45.5 % [facility] Plt 151 150 - 400 K/cumm [facility] MPV 11.4 9.1 - 12.3 fL [facility] RBC 3.37(L) 3.90 - 5.20 M/cumm [facility] MCV 88.4 81.3 - 96.4 fL [facility] MCH 28.2 27.1 - 33.3 pg [facility] MCHC 31.9(L) 32.3 - 35.7 g/dL [facility] RDW CV 17.6(H) 11.1 - 14.9 % [facility] RDW SD 54.4(H) 35.7 - 48.1 fL [facility] NRBC abs 0.00 0.00 - 0.01 K/cumm [facility] Blood 08/05/2024 10:1 5 PM CDT 08/05/2024 11:23 PM CDT Raquel Ochoa MD LAB BLOOD ORDERAB LES Final Result [facility] [place] [address] * (ABNORMAL) Basic metabolic panel (08/05/2024 10:15 PM CDT) Sodium 140 135 - 145 mmol/L Potassium, pl 4.3 3.3 - 4.9 mmol/L [facility] Chloride 98 97 - 110 mmol/L [facility] CO2 30 22 - 32 mmol/L [facility] Anion gap 12 2 - 15 mmol/L [facility] BUN 18 6 - 25 mg/dL [facility] Creatinine 1.33(H) 0.60 - 1.10 mg/dL [facility] Glucose 110 70 - 199 mg/dL [facility] Comment: Interpretive Data Fasting glucose >/= 126 mg/dl is diagnostic for diabetes. Fasting is defined as no caloric intake for at least 8 hours. Fasting glucose between 100 mg/dl to 125 mg/dl is diagnostic of prediabetes. In a patient with classic symptoms of hyperglycemia or hyperglycemic crisis, a random glucose >/= 200 mg/dl is diagnostic for diabetes. In the absence of unequivocal hyperglycemia, results should be confirmed by repeat testing. The classification and Diagnosis of Diabetes Diabetes Care 2021; 46: S19-S40. Current interpretive data was last revised 2022. Calcium 8.2(L) 8.5 - 10.3 mg/dL [facility] Blood 08/05/2024 10:1 5 PM CDT 08/05/2024 11:28 PM CDT us Raquel Ochoa MD LAB BLOOD ORDERAB LES Final Result Performing Organization Address [facility] Co de Phone Number [facility] [place] [place] [address] * (ABNORMAL) Lactate (08/05/2024 9:07 AM CDT) Lactate 2.1(H) 0.7 - 2.0 mmol/L Blood 08/05/2024 9:07 AM CDT 08/05/2024 10:10 AM CDT us Smith Sofia MD LAB BLOOD ORDERABLES F inal Result Performing Organization Address [facility] Co de Phone Number [facility] [place] [place] [address] * (ABNORMAL) Lactate (08/05/2024 3:10 AM CDT) Lactate 2.6(H) 0.7 - 2.0 mmol/L Blood 08/05/2024 3:10 AM CDT 08/05/2024 3:26 AM CDT us Smith Sofia MD LAB BLOOD ORDERABLES F inal Result Performing Organization Address [facility] de Phone Number [facility] [place] [place] [address] * Troponin I high-sensitivity (08/04/2024 11:50 PM CDT) Trop I hs 11 <=17 ng/L Comment: Interpretive Data For further hscTnI resources including the diagnostic algorithm and an aid in interpretation, copy and paste this link: https://bjhlab.testcatalog.org/show/[email or web address] Current Interpretive Data last revised 2019. Blood 08/04/2024 11:5 0 PM CDT 08/05/2024 12:34 AM CDT us Alexa Gregorio MD LAB BLOOD ORDERABLES Otilia l Result [facility] [place] [address] * (ABNORMAL) eGFR (08/04/2024 11:50 PM CDT) eGFR 57(L) >=60 mL/min/1. 73 m2 Comment: Interpretive Data Reference Interval Normal >/= 90 mL/min/1.73m2 Mildly decreased* 60 - 89 mL/min/1.73m2 Mildly to moderately decreased 45 - 59 mL/min/1.73m2 Moderately to severely decreased 30 - 44 mL/min/1.73m2 Severely decreased 15 - 29 mL/min/1.73m2 Kidney Failure < 15 mL/min/1.73m2 *Relative to young adult level Estimated glomerular filtration rate is determined by the 2020 CKD-EPI equation recommended by the National Kidney Foundation (A Unifying Approach to GFR Estimation: Recommendations of the NKF-ASK Task Force on Reassessing the Inclusion of Race in Diagnosing Kidney Disease, JASN 2020). The CKD-EPI equation should not be used for patients with unstable renal function and has not been validated in children and those over 70. Current interpretive data was last reviewed 2021. Blood 08/04/2024 11:5 0 PM CDT 08/05/2024 12:33 AM CDT us Raquel Ochoa MD LAB BLOOD ORDERAB LES Final Result [facility] [place] [address] * (ABNORMAL) Lactate, whole blood (08/04/2024 11:50 PM CDT) Lactate, bld 2.9(H) 0.7 - 2.0 mmol/L Blood 08/04/2024 11:5 0 PM CDT 08/05/2024 12:23 AM CDT Alexa Gregorio MD LAB BLOOD ORDERABLES Otilia l Result Performing Organization Address [facility] Co de Phone Number [facility] Department [place] [address] * (ABNORMAL) CBC without differential (08/04/2024 11:50 PM CDT) Pathologist [facility] WBC 7.6 3.8 - 9.9 K/cumm Hgb 11.4(L) 11.9 - 15.5 g/dL [facility] Hct 36.2 35.6 - 45.5 % [facility] Plt 210 150 - 400 K/cumm [facility] MPV 11.0 9.1 - 12.3 fL [facility] RBC 4.09 3.90 - 5.20 M/cumm [facility] MCV 88.5 81.3 - 96.4 fL [facility] MCH 27.9 27.1 - 33.3 pg [facility] MCHC 31.5(L) 32.3 - 35.7 g/dL [facility] RDW CV 17.3(H) 11.1 - 14.9 % [facility] RDW SD 53.1(H) 35.7 - 48.1 fL [facility] NRBC abs 0.00 0.00 - 0.01 K/cumm [facility] Blood 08/04/2024 11:5 0 PM CDT 08/05/2024 12:34 AM CDT Raquel Ochoa MD LAB BLOOD ORDERAB LES Final Result Performing Organization Address [facility]/ZIP Co de Phone Number [facility] [place] [employer] [place] [address] * Basic metabolic panel (08/04/2024 11:50 PM CDT) Pathologist [facility] Sodium 139 135 - 145 mmol/L Potassium, pl 3.7 3.3 - 4.9 mmol/L [facility] Chloride 97 97 - 110 mmol/L [facility] CO2 30 22 - 32 mmol/L [facility] Anion gap 12 2 - 15 mmol/L [facility] BUN 13 6 - 25 mg/dL [facility] Creatinine 1.08 0.60 - 1.10 mg/dL [facility] Glucose 116 70 - 199 mg/dL [facility] Comment: Interpretive Data Fasting glucose >/= 126 mg/dl is diagnostic for diabetes. Fasting is defined as no caloric intake for at least 8 hours. Fasting glucose between 100 mg/dl to 125 mg/dl is diagnostic of prediabetes. In a patient with classic symptoms of hyperglycemia or hyperglycemic crisis, a random glucose >/= 200 mg/dl is diagnostic for diabetes. In the absence of unequivocal hyperglycemia, results should be confirmed by repeat testing. The classification and Diagnosis of Diabetes Diabetes Care 202; 46: S19-S40. Current interpretive data was last revised 2022. Calcium 9.0 8.5 - 10.3 mg/dL [facility] Blood 08/04/2024 11:5 0 PM CDT 08/05/2024 12:33 AM CDT us Raquel Ochoa MD LAB BLOOD ORDERAB LES Final Result [facility] [place] [address] * CT Head WO Contrast (08/04/2024 11:28 AM CDT) Anatomical Region Laterality Modality Head and Neck N/A Computed Tomogra phy 08/04/2024 11:4 5 AM CDT Impressions 08/04/2024 11:45 AM CDT 1. No acute intracranial process. 2. Bilateral subdural hygromas versus prominent subarachnoid spaces due to parenchymal volume loss. 3. Paranasal sinus disease. Electronically signed by: Maya Harrell MD Narrative 08/04/2024 11:45 AM CDT EXAMINATION: CT head without contrast HISTORY: 64 years-old Female with c/f prior stroke. TECHNIQUE: CT of the head was performed with images acquired from skull base to vertex without intravenous contrast. COMPARISON: None Available. FINDINGS: There is no acute intracranial hemorrhage. Ventricles are of normal size and morphology. No mass effect or midline shift is present. The landis-white matter differentiation is normal. Moderate global cerebral volume loss. Bilateral subdural hygromas/prominent subarachnoid spaces, right greater than left, measuring up to 13 mm. Partially empty sella. The visualized portions of the orbits are normal. The visualized portions of the mastoids are normal. Mild mucosal thickening of the sphenoid sinuses. Mild to moderate mucosal thickening of the left maxillary sinus. 3 calcifications within the right maxillary sinus. No fractures are identified. Procedure Note Maya Harrell MD PhD - 08/04/2024 EXAMINATION: CT head without contrast HISTORY: 64 years-old Female with c/f prior stroke. TECHNIQUE: CT of the head was performed with images acquired from skull base to vertex without intravenous contrast. COMPARISON: None Available. FINDINGS: There is no acute intracranial hemorrhage. Ventricles are of normal size and morphology. No mass effect or midline shift is present. The landis-white matter differentiation is normal. Moderate global cerebral volume loss. Bilateral subdural hygromas/prominent subarachnoid spaces, right greater than left, measuring up to 13 mm. Partially empty sella. The visualized portions of the orbits are normal. The visualized portions of the mastoids are normal. Mild mucosal thickening of the sphenoid sinuses. Mild to moderate mucosal thickening of the left maxillary sinus. 3 calcifications within the right maxillary sinus. No fractures are identified. IMPRESSION: 1. No acute intracranial process. 2. Bilateral subdural hygromas versus prominent subarachnoid spaces due to parenchymal volume loss. 3. Paranasal sinus disease. Electronically signed by: Maya Harrell MD Smith Sofia MD [facility] CT PROCEDURES Otilia l Result * eGFR (08/03/2024 10:20 PM CDT) eGFR 67 >=60 mL/min/1. 73 m2 Comment: Interpretive Data Reference Interval Normal >/= 90 mL/min/1.73m2 Mildly decreased* 60 - 89 mL/min/1.73m2 Mildly to moderately decreased 45 - 59 mL/min/1.73m2 Moderately to severely decreased 30 - 44 mL/min/1.73m2 Severely decreased 15 - 29 mL/min/1.73m2 Kidney Failure < 15 mL/min/1.73m2 *Relative to young adult level Estimated glomerular filtration rate is determined by the 2020 CKD-EPI equation recommended by the National Kidney Foundation (A Unifying Approach to GFR Estimation: Recommendations of the NKF-ASK Task Force on Reassessing the Inclusion of Race in Diagnosing Kidney Disease, JASN 202). The CKD-EPI equation should not be used for patients with unstable renal function and has not been validated in children and those over 70. Current interpretive data was last reviewed 2021. Blood 08/03/2024 10:2 0 PM CDT 08/03/2024 10:49 PM CDT us Raquel Ochoa MD LAB BLOOD ORDERAB LES Final Result [facility] [place] [address] * (ABNORMAL) CBC without differential (08/03/2024 10:20 PM CDT) WBC 4.0 3.8 - 9.9 K/cumm Hgb 10.5(L) 11.9 - 15.5 g/dL [facility] Hct 32.8(L) 35.6 - 45.5 % [facility] Plt 183 150 - 400 K/cumm [facility] MPV 10.8 9.1 - 12.3 fL [facility] RBC 3.77(L) 3.90 - 5.20 M/cumm [facility] MCV 87.0 81.3 - 96.4 fL [facility] MCH 27.9 27.1 - 33.3 pg [facility] MCHC 32.0(L) 32.3 - 35.7 g/dL [facility] RDW CV 16.8(H) 11.1 - 14.9 % [facility] RDW SD 52.1(H) 35.7 - 48.1 fL [facility] NRBC abs 0.00 0.00 - 0.01 K/cumm [facility] Blood 08/03/2024 10:2 0 PM CDT 08/03/2024 10:50 PM CDT Raquel Ochoa MD LAB BLOOD ORDERAB LES Final Result Performing Organization Address City/[facility]/ZIP Co de Phone Number [facility] [place] [address] * Magnesium (08/03/2024 10:20 PM CDT) [facility] Magnesium 1.9 1.4 - 2.5 mg/dL Blood 08/03/2024 10:2 0 PM CDT 08/03/2024 10:49 PM CDT Raquel Ochoa MD LAB BLOOD ORDERAB LES Final Result Performing Organization Address [facility] de Phone Number [facility] [place] [address] * (ABNORMAL) Basic metabolic panel (08/03/2024 10:20 PM CDT) [facility] Sodium 143 135 - 145 mmol/L Potassium, pl 3.3 3.3 - 4.9 mmol/L [facility] Chloride 100 97 - 110 mmol/L [facility] CO2 33(H) 22 - 32 mmol/L [facility] Anion gap 10 2 - 15 mmol/L [facility] BUN 10 6 - 25 mg/dL [facility] Creatinine 0.94 0.60 - 1.10 mg/dL [facility] Glucose 96 70 - 199 mg/dL [facility] Comment: Interpretive Data Fasting glucose >/= 126 mg/dl is diagnostic for diabetes. Fasting is defined as no caloric intake for at least 8 hours. Fasting glucose between 100 mg/dl to 125 mg/dl is diagnostic of prediabetes. In a patient with classic symptoms of hyperglycemia or hyperglycemic crisis, a random glucose >/= 200 mg/dl is diagnostic for diabetes. In the absence of unequivocal hyperglycemia, results should be confirmed by repeat testing. The classification and Diagnosis of Diabetes Diabetes Care 2021; 46: S19-S40. Current interpretive data was last revised 2022. Calcium 8.6 8.5 - 10.3 mg/dL [facility] Blood 08/03/2024 10:2 0 PM CDT 08/03/2024 10:49 PM CDT us Raquel Ochoa MD LAB BLOOD ORDERAB LES Final Result [facility] [place] [address] * TRANSTHORACIC ECHO (TTE) COMPLETE W DOPPLER/CF W CONTRAST (08/03/2024 10:04 AM CDT) LV EF 45-50 % CONS SCIMAGE Anatomical Region Laterality Modality Ultrasound 08/03/2024 9:58 AM CDT Narrative 08/03/2024 11:00 AM CDT [facility] [place] [address] Transthoracic Echocardiographic Report Patient Name: ALISHA MONTENEGRO : 1960 (64y ) Gender: F Study Date: 08/03/2024 09:58:49 AM Ht(Inch): 60 Wt(Lb): 212.08 BSA: 2.02 Multi Spindle Operator: Elida Lombardi [facility] Location: [id number] Order Provider: RAQUEL OCHOA BMI: 41.41 BP: 127/75 Ref Provider: RAQUEL OCHOA - PROCEDURES: Echocardiographic Report: Transthoracic complete echo with strain imaging and contrast, 2D, spectral and tissue Doppler, color flow Doppler, M-mode. Contrast: Contrast Enhancement was Employed: Poor visualization of endocardial borders. 0.4 ml Optison Administered, (2.6 ml wasted). INDICATIONS: Concern for myocardial infarction. CONCLUSIONS: 1. Normal LV size. LVEF 45-50%. Dyssynchronous septal motion consistent with intraventricular conduction delay or bundle branch block. 2. Normal right ventricular systolic function. 3. There is no significant valvular heart disease. 4. PASP cannot be evaluated due to inadequate TR jet. 5. Normal pericardium without pericardial effusion. 6. Normal aortic root size. 7. IVC is normal in size. ATTESTATION: 1I have personally reviewed and interpreted this study without fellow or resident. DISCLAIMER: The study images and the final report will be retained in the patient chart by the Echo Laboratory for the legally required time period. This chart constitutes the legal record of any testing performed. FINDINGS: Left Ventricle: Normal left ventricular cavity size based on 2D measurements. Normal LV wall thickness. Mildly depressed left ventricular systolic function. The Ejection Fraction is visually estimated to be 45-50 %. Left ventricular diastolic function is indeterminate. The average global longitudinal strain is abnormal. The LV global strain is: -13.0 %. Dyssynchronous septal motion consistent with intraventricular conduction delay or bundle branch block. Right Ventricle: Right ventricular dilatation. Normal right ventricular systolic function. Left Atrium: The left atrium is normal in size. Right Atrium: The right atrium is normal in size. Mitral Valve: Normal mitral valve structure. Mild mitral valve regurgitation. No stenosis present. Aortic Valve: Normal trileaflet aortic valve. No aortic regurgitation. No aortic valve stenosis. Tricuspid Valve: Normal tricuspid valve structure. No tricuspid regurgitation. PASP cannot be evaluated due to inadequate TR jet. No tricuspid valve stenosis. Pulmonic Valve: Normal pulmonic valve structure. No pulmonic regurgitation. No pulmonic valve stenosis present. Pericardium: Normal pericardium without pericardial effusion. Aorta: Normal aortic root size. IVC: IVC is normal in size. MEASUREMENTS: 2D/MM Value Range Doppler Value Range LVIDd 2D 5.50 cm [ 3.80 - 5.20 ] AV Peak Loc 1.2 m/s [ 1.0 - 1.7 ] LVIDs 2D 3.99 cm [ 2.20 - 3.50 ] AV Peak PG 5.76 mmHg IVSd 2D 5.08 cm [ 0.60 - 0.90 ] AV Mean PG 3 mmHg LVPWd 2D 1.03 cm [ 0.60 - 0.90 ] AV VTI 20.9 cm LV Thickness Ratio 4.9 LVOT Peak Loc 1.1 m/s [ 0.7 - 1.1 ] LV FS 2D 27.44 % [ 27.00 - 45.00 ] LVOT Peak PG 4.84 mmHg LV Mass 2D 1169.53 g LVOT Mean PG 3 mmHg LV Mass Index 2D 578.98 g/m2 LVOT VTI 19.0 cm RWT 0.37 LVOT Diam 1.92 cm EDV Mod BP 120.71 ml [ 46.00 - 106.00 ] JD VTI 2.63 cm2 LV EDV Index 59.76 ml/m2 LVOT/AV VTI 0.91 - Dimensionless index (DVI) ESV Mod BP 59.70 ml [ 14.00 - 42.00 ] MV E Peak Loc 0.9 m/s [ 0.6 - 1.3 ] EF Mod BP 51 % [ 54 - 74 ] MV A Peak Loc 0.8 m/s [ 1.0 - 1.2 ] Visually Estimated EF 45-50 % MV E/A 1.1 ratio [ 0.8 - 1.5 ] LV GLS -13.0 % [ -18.0 - -16.0 ] MV Decel Time 196.99 msec [ 104.00 - 258.00 ] LA Length 4C 6.54 cm Med E` Loc 4.9 cm/sec [ 8.0 - 15.0 ] LA Length 2C 6.32 cm Lat E` Loc 8.4 cm/sec [ 10.0 - 15.0 ] LA Volume BP 46.05 ml Average E/E` 13.53 LA Volume Index 22.80 ml/m2 [ 16.00 - 34.00 ] RV S` 8.44 cm/sec RV Base Dimen 2D 4.3 cm [ 2.5 - 4.2 ] PV Peak Loc 0.8 m/s [ 0.4 - 0.8 ] TAPSE 2.36 cm [ 1.71 - 5.00 ] PV Peak PG 2.56 mmHg RA Volume 30.65 ml RA Volume Index 15.17 ml/m2 AoR Diam 2D 3.09 cm [ 2.70 - 3.70 ] Ao Root Index 1.53 cm/m2 [ 1.00 - 2.00 ] Asc Ao Diam 2D 3.28 cm Asc Ao Index 1.62 cm/m2 Electronically Signed By: Mannie Barron MD 08/03/2024 11:00:16 AM CDT Procedure Note Mannie Barron MD - 08/03/2024 [facility] [place] [address] Transthoracic Echocardiographic Report Patient Name: ALISHA MONTENEGRO : 1960 (64y ) Gender: F Study Date: 08/03/2024 09:58:49 AM Ht(Inch): 60 Wt(Lb): 212.08 BSA: 2.02 Multi Spindle Operator: Elida Lombardi RDCS Location: [place] [address] Order Provider: RAQUEL OCHOA BMI: 41.41 BP: 127/75 Ref Provider:RAQUEL OCHOA - PROCEDURES: Echocardiographic Report: Transthoracic complete echo with strain imagingand contrast, 2D, spectral and tissue Doppler, color flow Doppler, M-mode. Contrast: Contrast Enhancement was Employed: Poor visualization ofendocardial borders. 0.4 ml Optison Administered, (2.6 ml wasted). INDICATIONS: Concern for myocardial infarction. CONCLUSIONS: 1. Normal LV size. LVEF 45-50%. Dyssynchronous septal motion consistentwith intraventricular conduction delay or bundle branch block. 2. Normal right ventricular systolic function. 3. There is no significant valvular heart disease. 4. PASP cannot be evaluated due to inadequate TR jet. 5. Normal pericardium without pericardial effusion. 6. Normal aortic root size. 7. IVC is normal in size. ATTESTATION: 1I have personally reviewed and interpreted this study without fellow orresident. DISCLAIMER: The study images and the final report will be retained in the patientchart by the Echo Laboratory for the legally required time period. This chart constitutesthe legal record of any testing performed. FINDINGS: Left Ventricle: Normal left ventricular cavity size based on 2Dmeasurements. Normal LV wall thickness. Mildly depressed left ventricular systolic function. TheEjection Fraction is visually estimated to be 45-50 %. Left ventricular diastolicfunction is indeterminate. The average global longitudinal strain is abnormal. The LVglobal strain is: -13.0 %. Dyssynchronous septal motion consistent with intraventricularconduction delay or bundle branch block. Right Ventricle: Right ventricular dilatation. Normal right ventricularsystolic function. Left Atrium: The left atrium is normal in size. Right Atrium: The right atrium is normal in size. Mitral Valve: Normal mitral valve structure. Mild mitral valveregurgitation. No stenosis present. Aortic Valve: Normal trileaflet aortic valve. No aortic regurgitation. Noaortic valve stenosis. Tricuspid Valve: Normal tricuspid valve structure. No tricuspidregurgitation. PASP cannot be evaluated due to inadequate TR jet. No tricuspid valvestenosis. Pulmonic Valve: Normal pulmonic valve structure. No pulmonicregurgitation. No pulmonic valve stenosis present. Pericardium: Normal pericardium without pericardial effusion. Aorta: Normal aortic root size. IVC: IVC is normal in size. MEASUREMENTS: 2D/MM Value Range DopplerValue Range LVIDd 2D 5.50 cm [ 3.80 - 5.20 ] AV Peak Vel1.2 m/s [ 1.0 - 1.7 ] LVIDs 2D 3.99 cm [ 2.20 - 3.50 ] AV Peak PG5.76 mmHg IVSd 2D 5.08 cm [ 0.60 - 0.90 ] AV Mean PG3 mmHg LVPWd 2D 1.03 cm [ 0.60 - 0.90 ] AV VTI20.9 cm LV Thickness Ratio 4.9 LVOT PeakVel 1.1 m/s [ 0.7 - 1.1 ] LV FS 2D 27.44 % [ 27.00 - 45.00 ] LVOT Peak PG4.84 mmHg LV Mass 2D 1169.53 g LVOT Mean PG3 mmHg LV Mass Index 2D 578.98 g/m2 LVOT VTI19.0 cm RWT 0.37 LVOT Diam1.92 cm EDV Mod BP 120.71 ml [ 46.00 - 106.00 ] JD VTI2.63 cm2 LV EDV Index 59.76 ml/m2 LVOT/AV VTI0.91 - Dimensionless index (DVI) ESV Mod BP 59.70 ml [ 14.00 - 42.00 ] MV E PeakVel 0.9 m/s [ 0.6 - 1.3 ] EF Mod BP 51 % [ 54 - 74 ] MV A PeakVel 0.8 m/s [ 1.0 - 1.2 ] Visually Estimated EF 45-50 % MV E/A1.1 ratio [ 0.8 - 1.5 ] LV GLS -13.0 % [ -18.0 - -16.0 ] MV DecelTime 196.99 msec [ 104.00 - 258.00 ] LA Length 4C 6.54 cm Med E` Vel4.9 cm/sec [ 8.0 - 15.0 ] LA Length 2C 6.32 cm Lat E` Vel8.4 cm/sec [ 10.0 - 15.0 ] LA Volume BP 46.05 ml Average E/E`13.53 LA Volume Index 22.80 ml/m2 [ 16.00 - 34.00 ] RV S`8.44 cm/sec RV Base Dimen 2D 4.3 cm [ 2.5 - 4.2 ] PV Peak Vel0.8 m/s [ 0.4 - 0.8 ] TAPSE 2.36 cm [ 1.71 - 5.00 ] PV Peak PG2.56 mmHg RA Zcpfyw86.65 ml RA Volume Index15.17 ml/m2 AoR Diam 2D 3.09 cm [ 2.70 - 3.70 ] Ao Root Index 1.53 cm/m2 [ 1.00 - 2.00 ] Asc Ao Diam 2D3.28 cm Asc Ao Index1.62 cm/m2 Electronically Signed By: Mannie Barron MD 08/03/2024 11:00:16 AM CDT Raquel Ochoa MD CV ECHO PROCEDURE S Final Result * (ABNORMAL) Lactate (08/03/2024 4:26 AM CDT) Lactate 2.5(H) 0.7 - 2.0 mmol/L Blood 08/03/2024 4:26 AM CDT 08/03/2024 4:52 AM CDT Smith Sofia MD LAB BLOOD ORDERABLES F inal Result [facility] Department [place] [address] * Lactate (08/03/2024 12:25 AM CDT) Lactate 1.1 0.7 - 2.0 mmol/L Blood 08/03/2024 12:2 5 AM CDT 08/03/2024 12:45 AM CDT us Smith Sofia MD LAB BLOOD ORDERABLES F inal Result [facility] [place] [place] [address] * Lactate (08/02/2024 8:16 PM CDT) Lactate 1.2 0.7 - 2.0 mmol/L Blood 08/02/2024 8:16 PM CDT 08/02/2024 8:52 PM CDT us Smith Sofia MD LAB BLOOD ORDERABLES F inal Result Performing Organization Address [facility] Co de Phone Number [facility] Department [place] [address] * eGFR (08/02/2024 8:16 PM CDT) eGFR 69 >=60 mL/min/1. 73 m2 Comment: Interpretive Data Reference Interval Normal >/= 90 mL/min/1.73m2 Mildly decreased* 60 - 89 mL/min/1.73m2 Mildly to moderately decreased 45 - 59 mL/min/1.73m2 Moderately to severely decreased 30 - 44 mL/min/1.73m2 Severely decreased 15 - 29 mL/min/1.73m2 Kidney Failure < 15 mL/min/1.73m2 *Relative to young adult level Estimated glomerular filtration rate is determined by the 2020 CKD-EPI equation recommended by the National Kidney Foundation (A Unifying Approach to GFR Estimation: Recommendations of the NKF-ASK Task Force on Reassessing the Inclusion of Race in Diagnosing Kidney Disease, JASN 2020). The CKD-EPI equation should not be used for patients with unstable renal function and has not been validated in children and those over 70. Current interpretive data was last reviewed 2021. Blood 08/02/2024 8:16 PM CDT 08/02/2024 8:51 PM CDT us Raquel Ochoa MD LAB BLOOD ORDERAB LES Final Result Performing Organization Address [facility]/ZIP Co de Phone Number [facility] Department [place] [address] * (ABNORMAL) CBC without differential (08/02/2024 8:16 PM CDT) WBC 4.6 3.8 - 9.9 K/cumm Hgb 9.6(L) 11.9 - 15.5 g/dL [facility] Hct 30.1(L) 35.6 - 45.5 % [facility] Plt 197 150 - 400 K/cumm [facility] MPV 10.6 9.1 - 12.3 fL [facility] RBC 3.51(L) 3.90 - 5.20 M/cumm [facility] MCV 85.8 81.3 - 96.4 fL [facility] MCH 27.4 27.1 - 33.3 pg [facility] MCHC 31.9(L) 32.3 - 35.7 g/dL [facility] RDW CV 16.5(H) 11.1 - 14.9 % [facility] RDW SD 51.7(H) 35.7 - 48.1 fL [facility] NRBC abs 0.00 0.00 - 0.01 K/cumm [facility] Blood 08/02/2024 8:16 PM CDT 08/02/2024 8:52 PM CDT us Raquel Ochoa MD LAB BLOOD ORDERAB LES Final Result [facility] Department of [employer] [place], [place] [id number] * Magnesium (08/02/2024 8:16 PM CDT) [facility] Magnesium 2.0 1.4 - 2.5 mg/dL Blood 08/02/2024 8:16 PM CDT 08/02/2024 8:51 PM CDT us Raquel Ochoa MD LAB BLOOD ORDERAB LES Final Result [facility] [address] * (ABNORMAL) Basic metabolic panel (08/02/2024 8:16 PM CDT) Pathologist [facility] Sodium 142 135 - 145 mmol/L Potassium, pl 3.3 3.3 - 4.9 mmol/L [facility] Chloride 102 97 - 110 mmol/L [facility] CO2 33(H) 22 - 32 mmol/L [facility] Anion gap 7 2 - 15 mmol/L [facility] BUN 9 6 - 25 mg/dL [facility] Creatinine 0.92 0.60 - 1.10 mg/dL [facility] Glucose 98 70 - 199 mg/dL [facility] Comment: Interpretive Data Fasting glucose >/= 126 mg/dl is diagnostic for diabetes. Fasting is defined as no caloric intake for at least 8 hours. Fasting glucose between 100 mg/dl to 125 mg/dl is diagnostic of prediabetes. In a patient with classic symptoms of hyperglycemia or hyperglycemic crisis, a random glucose >/= 200 mg/dl is diagnostic for diabetes. In the absence of unequivocal hyperglycemia, results should be confirmed by repeat testing. The classification and Diagnosis of Diabetes Diabetes Care 2021; 46: S19-S40. Current interpretive data was last revised 2022. Calcium 8.7 8.5 - 10.3 mg/dL [facility] Blood 08/02/2024 8:16 PM CDT 08/02/2024 8:51 PM CDT us Raquel Ochoa MD LAB BLOOD ORDERAB LES Final Result [facility] [place] [address] * Lactate (08/02/2024 5:03 AM CDT) Pathologist [facility] Lactate 1.4 0.7 - 2.0 mmol/L Blood 08/02/2024 5:03 AM CDT 08/02/2024 5:28 AM CDT us Raquel Ochoa MD LAB BLOOD ORDERAB LES Final Result Performing Organization Address City/[facility]/ZIP Co de Phone Number [facility] [place] [address] * aPTT (08/02/2024 5:03 AM CDT) aPTT 34 28 - 38 sec Comment: Interpretive Data Heparin therapeutic range: 66.0 - 100.0 seconds. Range based on correlation with therapeutic heparin activity range of 0.3 - 0.7 Units/mL. Current interpretive data was last revised on 2023. Blood 08/02/2024 5:03 AM CDT 08/02/2024 5:38 AM CDT Stephani ESCOBAR - 08/02/2024 6:03 AM CDT STAT PTT timing: - Draw 6 hours after heparin infusion initiation - Draw 6 hours after every dose change until 2 consecutive PTTs are therapeutic - Once 2 consecutive PTTs are therapeutic, obtain with daily labs until infusion is discontinued - - Restart every 6 hour lab draws and follow instructions accordingly if PTT is outside of therapeutic range Do not draw lab from IV line that is actively infusing heparin. Use the opposite arm. If arm with actively infusing heparin must be used, pause the infusion for at least 2 minutes, and draw specimen below the IV site. For patients with a central venous catheter (CVC), lab must be drawn peripherally (not from CVC). us Raquel Ochoa MD LAB BLOOD ORDERAB LES Final Result [facility] [place] [address] * (ABNORMAL) Troponin I high-sensitivity series (baseline, 2hr, 4hr, 6hr) (08/02/2024 12:34 AM GLOBAL ACCOUNT DIRECTOR) Pathologist [facility] Trop I hs 154(H) <=17 ng/L Comment: Interpretive Data For further hscTnI resources including the diagnostic algorithm and an aid in interpretation, copy and paste this link: [email or web address]://bjhlab.testcatalog.org/show/[email or web address] Current Interpretive Data last revised 2019. Blood 08/02/2024 12:3 4 AM GLOBAL ACCOUNT DIRECTOR 08/02/2024 12:53 AM GLOBAL ACCOUNT DIRECTOR us Raquel Ochoa MD LAB BLOOD ORDERAB LES Final Result Performing Organization Address City/[facility] Co de Phone Number [facility] [place] [address] * Critical Result Callback Hematology (08/02/2024 12:34 AM GLOBAL ACCOUNT DIRECTOR) Date Notified [id number] Time Notified 304 [facility] TestName ptt [facility] Called/Read Back clare [facility]ICE[facility] Credentials [employer]ENTICE [facility] Called By ss [facility] Blood 08/02/2024 12:3 4 AM GLOBAL ACCOUNT DIRECTOR 08/02/2024 3:03 AM CDT us Nelly Torres MD LAB BLOOD ORDERABLES Final Result Performing Organization Address [facility] Co de Phone Number [facility] [place] [address] * (ABNORMAL) aPTT (08/02/2024 12:34 AM GLOBAL ACCOUNT DIRECTOR) aPTT >150(C) 28 - 38 sec Comment: clare ayala rn Interpretive Data Heparin therapeutic range: 66.0 - 100.0 seconds. Range based on correlation with therapeutic heparin activity range of 0.3 - 0.7 Units/mL. Current interpretive data was last revised on 2023. Blood 08/02/2024 12:3 4 AM GLOBAL ACCOUNT DIRECTOR 08/02/2024 3:03 AM CDT us Nelly Torres MD LAB BLOOD ORDERABLES Final Result Performing Organization Address [facility] Co de Phone Number [facility] [place] [address] * X-ray chest 1 view (Portable) (08/01/2024 10:55 PM GLOBAL ACCOUNT DIRECTOR) Anatomical Region Laterality Modality Body, Chest N/A Computed Radiogr aphy 08/01/2024 11:0 4 PM GLOBAL ACCOUNT DIRECTOR Impressions 08/01/2024 11:04 PM GLOBAL ACCOUNT DIRECTOR Comparison to 07/29/2024. There is a patchy mid and basilar lung opacities appear slightly increased from prior and could represent edema which was better seen on the prior CT. There is no pneumothorax or definite pleural effusion. Heart and mediastinum are unchanged. Electronically signed by: Ryan Mcbride M.D. Narrative 08/01/2024 11:04 PM GLOBAL ACCOUNT DIRECTOR EXAMINATION: 1 view chest radiograph Procedure Note Ryan Mcbride MD - 08/01/2024 EXAMINATION: 1 view chest radiograph IMPRESSION: Comparison to 07/29/2024. There is a patchy mid and basilar lung opacities appear slightly increased from prior and could represent edema which was better seen on the prior CT. There is no pneumothorax or definite pleural effusion. Heart and mediastinum are unchanged. Electronically signed by: Ryan Mcbride M.D. us Raquel Ochoa MD IMG XR PROCEDURES Final Result * (ABNORMAL) Troponin I high-sensitivity (08/01/2024 10:40 PM GLOBAL ACCOUNT DIRECTOR) Trop I hs 157(H) <=17 ng/L Comment: Interpretive Data For further [facility] resources including the diagnostic algorithm and an aid in interpretation, copy and paste this link: [email or web address]://[email or web address].testcatalog.org/show/[email or web address] Current Interpretive Data last revised 2019. Blood 08/01/2024 10:4 0 PM GLOBAL ACCOUNT DIRECTOR 08/01/2024 11:39 PM GLOBAL ACCOUNT DIRECTOR us Raquel Ochoa MD LAB BLOOD ORDERAB LES Final Result [facility] [place] [address] * (ABNORMAL) Lactate (08/01/2024 10:34 PM GLOBAL ACCOUNT DIRECTOR) Lactate 3.3(H) 0.7 - 2.0 mmol/L Blood 08/01/2024 10:3 4 PM GLOBAL ACCOUNT DIRECTOR 08/01/2024 11:39 PM GLOBAL ACCOUNT DIRECTOR Raquel Ochoa MD LAB BLOOD ORDERAB LES Final Result Performing Organization Address City/[facility]/ZIP Co de Phone Number [facility] [place] [address] * eGFR (08/01/2024 10:34 PM GLOBAL ACCOUNT DIRECTOR) eGFR 76 >=60 mL/min/1. 73 m2 Comment: Interpretive Data Reference Interval Normal >/= 90 mL/min/1.73m2 Mildly decreased* 60 - 89 mL/min/1.73m2 Mildly to moderately decreased 45 - 59 mL/min/1.73m2 Moderately to severely decreased 30 - 44 mL/min/1.73m2 Severely decreased 15 - 29 mL/min/1.73m2 Kidney Failure < 15 mL/min/1.73m2 *Relative to young adult level Estimated glomerular filtration rate is determined by the 2020 CKD-EPI equation recommended by the National Kidney Foundation (A Unifying Approach to GFR Estimation: Recommendations of the NKF-ASK Task Force on Reassessing the Inclusion of Race in Diagnosing Kidney Disease, JASN 2020). The CKD-EPI equation should not be used for patients with unstable renal function and has not been validated in children and those over 70. Current interpretive data was last reviewed 2021. Blood 08/01/2024 10:3 4 PM GLOBAL ACCOUNT DIRECTOR 08/01/2024 11:40 PM GLOBAL ACCOUNT DIRECTOR us Raquel Ochoa MD LAB BLOOD ORDERAB LES Final Result Performing Organization Address City/[facility]/ZIP Co de Phone Number [facility] [place] [address] * (ABNORMAL) Calcium, ionized (08/01/2024 10:34 PM GLOBAL ACCOUNT DIRECTOR) [facility] Calcium, Ionized 4.18(L) 4.50 - 5.10 mg/dL Blood 08/01/2024 10:3 4 PM GLOBAL ACCOUNT DIRECTOR 08/01/2024 11:27 PM GLOBAL ACCOUNT DIRECTOR Raquel Ochoa MD LAB BLOOD ORDERAB LES Final Result Performing Organization Address City/[facility]/ZIP Co de Phone Number [facility] [place] [address] * (ABNORMAL) Iron profile w/ IBC (08/01/2024 10:34 PM GLOBAL ACCOUNT DIRECTOR) [facility] Iron 68 35 - 145 mcg/dL TIBC 151(L) 250 - 400 mcg/dL [facility] Transferrin saturation 45 20 - 50 % [facility] Blood 08/01/2024 10:3 4 PM GLOBAL ACCOUNT DIRECTOR 08/01/2024 11:40 PM GLOBAL ACCOUNT DIRECTOR Raquel Ochoa MD LAB BLOOD ORDERAB LES Final Result Performing Organization Address [facility] de Phone Number [facility] [address] * (ABNORMAL) Respiratory pathogen panel Nasopharyngeal (08/01/2024 10:34 PM GLOBAL ACCOUNT DIRECTOR) [facility] Influenza A RNA Not Detected Not Detected Influenza B RNA Not Detected Not Detected [facility] RSV RNA Not Detected Not Detected [facility] COVID-19 RNA Not Detected Not Detected [facility] Coronavirus 229E RNA Not Detected Not Detected [facility] Coronavirus HKU1 RNA Not Detected Not Detected [facility] Coronavirus NL63 RNA Not Detected Not Detected [facility] Coronavirus OC43 RNA Not Detected Not Detected [facility] Adenovirus DNA Not Detected Not Detected [facility] Metapneumovirus RNA Detected(A) Not Detected [facility] Rhinovirus/Enterov irus RNA Not Detected Not Detected [facility] Parainfluenza 1 RNA Not Detected Not Detected [facility] Parainfluenza 2 RNA Not Detected Not Detected [facility] Parainfluenza 3 RNA Not Detected Not Detected [facility] Parainfluenza 4 RNA Not Detected Not Detected [facility] B. pertussis DNA Not Detected Not Detected [facility] B. parapertussis DNA Not Detected Not Detected [facility] C. pneumoniae DNA Not Detected Not Detected [facility] M. pneumoniae DNA Not Detected Not Detected [facility] Nasopharyngeal 08/01/2024 10 :34 PM GLOBAL ACCOUNT DIRECTOR 08/01/2024 11:47 PM GLOBAL ACCOUNT DIRECTOR Narrative [facility] - 08/02/2024 1:01 AM GLOBAL ACCOUNT DIRECTOR Is the Patient experiencing symptoms consistent with COVID?->No Surveillance testing for transplant patient?->No Interpretive Data The [employer] FilmArray Respiratory Panel (RP2.1) assay is a multiplexed real-time PCR based nucleic acid test capable of simultaneous qualitative detection and identification of multiple respiratory viral and bacterial nucleic acids, including SARS Coronavirus 2 (the causative agent of COVID-19). The following bacteria, viruses and virus subtypes can be identified using the FilmArray RP2.1 assay: Bordetella pertussis, Bordetella parapertussis, Chlamydia pneumoniae, Mycoplasma pneumoniae, Adenovirus, SARS Coronavirus 2, seasonal coronaviruses (Coronavirus HKU1, Coronavirus NL63, Coronavirus 229E, and Coronavirus OC43), Influenza A, Influenza A subtype H1, Influenza A subtype H3, Influenza A subtype 2009 H1, Influenza B, Metapneumovirus, Parainfluenza 1, Parainfluenza 2, Parainfluenza 3, Parainfluenza 4, RSV, Rhinovirus/Enterovirus. Due to the genetic similarity between human Rhinovirus and Enterovirus, the FilmArray RP2.1 assay cannot reliably differentiate them. Coronavirus OC43 may cross-react with some isolates of Coronavirus HKU1. A dual positive result may be due to cross-reactivity or may indicate a co- infection. The detection and identification of specific viral and bacterial nucleic acids from individuals exhibiting signs and symptoms of a respiratory infection aids in the diagnosis of respiratory infection if used in conjunction with other clinical and epidemiological information. The results of this test should not be used as the sole basis for diagnosis, treatment, or other management decisions. Negative results in the setting of a respiratory illness may be due to infection with pathogens that are not detected by this test. Positive results do not rule out infection/co-infection with other organisms. The agent(s) detected by the FilmArray RP2.1 may not be the definite cause of disease. Additional testing (lab, imaging, etc.) may be necessary when evaluating a patient with possible respiratory tract infection. The FilmArray RP2.1 assay has FDA clearance for testing of [employer]CT[employer] WORKER APPRENTICE swabs. The performance of additional specimen types has been assessed by the performing laboratory. The performance characteristics of this assay have been determined by [facility]. Current interpretive data was last revised on 22. us Raquel Ochoa MD LAB MICROBIOLOGY - GENERAL ORDERABLES Final Result [facility] [place] [address] * (ABNORMAL) CBC without differential (08/01/2024 10:34 PM GLOBAL ACCOUNT DIRECTOR) WBC 7.8 3.8 - 9.9 K/cumm Hgb 9.8(L) 11.9 - 15.5 g/dL [facility] Hct 31.1(L) 35.6 - 45.5 % [facility] Plt 260 150 - 400 K/cumm [facility] MPV 11.2 9.1 - 12.3 fL [facility] RBC 3.62(L) 3.90 - 5.20 M/cumm [facility] MCV 85.9 81.3 - 96.4 fL [facility] MCH 27.1 27.1 - 33.3 pg [facility] MCHC 31.5(L) 32.3 - 35.7 g/dL [facility] RDW CV 16.0(H) 11.1 - 14.9 % [facility] RDW SD 50.1(H) 35.7 - 48.1 fL [facility] NRBC abs 0.00 0.00 - 0.01 K/cumm [facility] Blood 08/01/2024 10:3 4 PM GLOBAL ACCOUNT DIRECTOR 08/01/2024 11:39 PM GLOBAL ACCOUNT DIRECTOR Raquel Ochoa MD LAB BLOOD ORDERAB LES Final Result Performing Organization Address [facility] de Phone Number [facility] [place] [place] [address] * Magnesium (08/01/2024 10:34 PM GLOBAL ACCOUNT DIRECTOR) [facility] Magnesium 1.9 1.4 - 2.5 mg/dL Blood 08/01/2024 10:3 4 PM GLOBAL ACCOUNT DIRECTOR 08/01/2024 11:40 PM GLOBAL ACCOUNT DIRECTOR Raquel Ochoa MD LAB BLOOD ORDERAB LES Final Result Performing Organization Address [facility] [place] [address] * Hemoglobin A1c (08/01/2024 10:34 PM GLOBAL ACCOUNT DIRECTOR) [facility] Hgb A1C 4.8 4.0 - 5.6 % Estimated Average Glucose 91 mg/dL [facility] Comment: The ADA recommends reporting an estimated Average Glucose (eAG) with all Hemoglobin A1c results using the equation derived from a study of 507 normal and diabetic adults. Minority populations were underrepresented and children were not included. (Diabetes Care 2020; 43(S1): S66-S76). The eAG is not equivalent to a fasting glucose. Blood 08/01/2024 10:3 4 PM GLOBAL ACCOUNT DIRECTOR 08/01/2024 11:44 PM GLOBAL ACCOUNT DIRECTOR Nelly Torres MD LAB BLOOD ORDERABLES Final Result Performing Organization Address [facility] de Phone Number [facility] [place] [address] * (ABNORMAL) Ferritin (08/01/2024 10:34 PM GLOBAL ACCOUNT DIRECTOR) Ferritin 342(H) 13 - 150 ng/mL Blood 08/01/2024 10:3 4 PM GLOBAL ACCOUNT DIRECTOR 08/01/2024 11:40 PM GLOBAL ACCOUNT DIRECTOR us Raquel Ochoa MD LAB BLOOD ORDERAB LES Final Result [facility] [place] [address] * (ABNORMAL) Comprehensive metabolic panel (08/01/2024 10:34 PM GLOBAL ACCOUNT DIRECTOR) Sodium 145 135 - 145 mmol/L Potassium, pl 3.1(L) 3.3 - 4.9 mmol/L [facility] Chloride 99 97 - 110 mmol/L [facility] CO2 31 22 - 32 mmol/L [facility] Anion gap 15 2 - 15 mmol/L [facility] BUN 7 6 - 25 mg/dL [facility] Creatinine 0.85 0.60 - 1.10 mg/dL [facility] Glucose 132 70 - 199 mg/dL [facility] Comment: Interpretive Data Fasting glucose >/= 126 mg/dl is diagnostic for diabetes. Fasting is defined as no caloric intake for at least 8 hours. Fasting glucose between 100 mg/dl to 125 mg/dl is diagnostic of prediabetes. In a patient with classic symptoms of hyperglycemia or hyperglycemic crisis, a random glucose >/= 200 mg/dl is diagnostic for diabetes. In the absence of unequivocal hyperglycemia, results should be confirmed by repeat testing. The classification and Diagnosis of Diabetes Diabetes Care 202; 46: S19-S40. Current interpretive data was last revised 2022. Calcium 8.8 8.5 - 10.3 mg/dL [facility] Bilirubin, total 0.4 0.1 - 1.2 mg/dL [facility] Protein, pl 6.4(L) 6.5 - 8.5 g/dL [facility] Albumin 3.4(L) 3.5 - 5.0 g/dL [facility] Alk phos 89 40 - 130 Units/L [facility] ALT 7 7 - 45 Units/L [facility] AST 25 10 - 45 Units/L [facility] Blood 08/01/2024 10:3 4 PM GLOBAL ACCOUNT DIRECTOR 08/01/2024 11:40 PM GLOBAL ACCOUNT DIRECTOR us Raquel Ochoa MD LAB BLOOD ORDERAB LES Final Result Performing Organization Address [facility] de Phone Number [facility] [place] [address] * (ABNORMAL) POCT lactate (08/01/2024 9:00 PM GLOBAL ACCOUNT DIRECTOR) [facility] Lactate POC i-STAT 3.4(H) 0.7 - 2.0 mmol/L Blood 08/01/2024 9:00 PM GLOBAL ACCOUNT DIRECTOR 08/01/2024 9:00 PM GLOBAL ACCOUNT DIRECTOR us Raquel Ochoa MD LAB POCT ORDERABL ES - DEVICE Final Result Performing Organization Address [facility] de Phone Number [facility] Department [place] [address] * (ABNORMAL) Troponin I high-sensitivity 6-hour (08/01/2024 8:57 PM GLOBAL ACCOUNT DIRECTOR) [facility] Trop I hs 120(H) <=17 ng/L Comment: Interpretive Data For further [facility] resources including the diagnostic algorithm and an aid in interpretation, copy and paste this link: https://bjhlab.testcatalog.org/show/hsTrop-[email or web address] Current Interpretive Data last revised 2019. Trop I hs delta 95(C) ng/L [facility] Comment:Previous critical va lue noted within 48 hours ago. Trop I hs interp Significa nt(C) [facility] Comment:Previous critical va lue noted within 48 hours ago. Blood 08/01/2024 8:57 PM GLOBAL ACCOUNT DIRECTOR 08/01/2024 9:05 PM GLOBAL ACCOUNT DIRECTOR us Justyn Beltran NP LAB BLOOD ORDERABLES Final Resul t [facility] [place] [address] * MD CRITICAL CARE ILL/INJURED PATIENT INIT 30-74 MIN (08/01/2024 6:54 PM GLOBAL ACCOUNT DIRECTOR) Narrative Ernesto Edwards MD - 08/01/2024 6:54 PM GLOBAL ACCOUNT DIRECTOR Ernesto Edwards MD 08/01/2024 6:55 PM Critical Care Performed by: Ernesto Edwards MD Authorized by: Ernesto Edwards MD Critical care provider statement: As reflected in the history, physical exam, orders, notes, and/or MDM, I was personally present while the patient was critically ill and provided critical care services for 65 minutes, excluding time involved in separately billable procedures. Critical care was necessary to treat or prevent imminent or life-threatening deterioration of the following condition(s): unstable vital signs hypertensive crisis and severe cardiac condition acute respiratory insufficiency and severe respiratory condition Critical care was time spent by me providing the following: continuous telemetry, continuous pulse oximetry, interpretation of bedside monitors, imaging, and arterial/venous lab draws, serial bedside patient exams and serial laboratory checks initiation and active titration of vasoactive medications supplemental oxygen and non-invasive positive pressure ventilator management I provided emergent necessary critical care medicine services to this patient. I ordered and reviewed test results and/or imaging studies. I spent time discussing the management of this critically ill patient with consultants and the medical staff. I spent time discussing the management and therapeutic options for this critically ill patient with the patient themselves or with the appropriate designated surrogate decision-maker. I spent time documenting in the medical record. I admitted this patient to a continuous cardiac monitored bed. us Ernesto Edwards MD IN CLINIC/BEDSIDE ORDERAB LES Final Result * (ABNORMAL) Troponin I high-sensitivity 4-hour (08/01/2024 5:53 PM GLOBAL ACCOUNT DIRECTOR) Trop I hs 89(H) <=17 ng/L Comment: Interpretive Data For further hscTnI resources including the diagnostic algorithm and an aid in interpretation, copy and paste this link: https://bjhlab.testcatalog.org/show/hsTrop-[email or web address] Current Interpretive Data last revised 2019. Trop I hs delta 64(C) ng/L [facility] Comment:Previous critical va lue noted within 48 hours ago. Trop I hs interp Significa nt(C) [facility] Comment:Previous critical va lue noted within 48 hours ago. Blood 08/01/2024 5:53 PM GLOBAL ACCOUNT DIRECTOR 08/01/2024 6:02 PM GLOBAL ACCOUNT DIRECTOR us Justyn Beltran NP LAB BLOOD ORDERABLES Final Resul t [facility] [place] [address] * ECG 12-LEAD (08/01/2024 4:17 PM GLOBAL ACCOUNT DIRECTOR) Narrative [facility] - 08/01/2024 4:17 PM GLOBAL ACCOUNT DIRECTOR Ernesto Edwards MD 08/01/2024 4:18 PM ECG 12 lead Date/Time: 08/01/2024 4:17 PM Performed by: Ernesto Edwards MD Authorized by: Maria Cooper MD Comments: Sinus tachycardia, rate of 110, left axis deviation, persistent left bundle-branch block without Sgarbossa criteria met to suggest occlusion NC. Procedure Note Ernesto Edwards MD - 08/01/2024 4:17 PM CST Procedure ECG 12 lead Date/Time: 08/01/2024 4:17 PM Performed by: Ernesto Edwards MD Authorized by: Maria Cooper MD Comments: Sinus tachycardia, rate of 110, left axis deviation, persistent leftbundle- branch block without Sgarbossa criteria met to suggest occlusionMI. Ernesto Edwards MD 08/01/24 [id number] us Maria Cooper MD ECG ORDERABLES Final R esult [facility] * (ABNORMAL) Troponin I high-sensitivity 2-hour (08/01/2024 4:15 PM GLOBAL ACCOUNT DIRECTOR) Trop I hs 55(H) <=17 ng/L Comment: Interpretive Data For further hscTnI resources including the diagnostic algorithm and an aid in interpretation, copy and paste this link: https://bjhlab.testcatalog.org/show/hsTrop-[email or web address] Current Interpretive Data last revised 2019. Trop I hs delta 30(C) ng/L [facility] Trop I hs interp Significa nt(C) [facility] Blood 08/01/2024 4:15 PM GLOBAL ACCOUNT DIRECTOR 08/01/2024 4:25 PM GLOBAL ACCOUNT DIRECTOR [facility]LOOD ORDERABLES Final Resul t Performing Organization Address [facility] de Phone Number [facility] [place] [address] * Critical result callback Cardio chemistry (08/01/2024 4:15 PM GLOBAL ACCOUNT DIRECTOR) Date Notified [id number] Time Notified 1723 [facility] Test name Trop I hs 2hr [facility] Called/Read Back Srinath Noriega [facility] Credentials RN [facility] Called By trevor [facility] Blood 08/01/2024 4:15 PM GLOBAL ACCOUNT DIRECTOR 08/01/2024 4:25 PM GLOBAL ACCOUNT DIRECTOR [facility] LAB BLOOD ORDERABLES Final Resul t Performing Organization Address City/[facility] Co de Phone Number [facility] [place] [address] * (ABNORMAL) ECG 12-LEAD (08/01/2024 3:21 PM GLOBAL ACCOUNT DIRECTOR) Narrative [facility] - 08/01/2024 3:21 PM GLOBAL ACCOUNT DIRECTOR Maria Cooper MD 08/01/2024 3:23 PM ECG 12 lead Date/Time: 08/01/2024 3:21 PM Performed by: Maria Cooper MD Authorized by: Maame Whitaker MD Rate: ECG rate: 135 ECG rate assessment: tachycardic Rhythm: Rhythm comment: Wide complex tachycardia. Suspect sinus tach with LBBB based on prior EKGs. Ectopy: Ectopy: none QRS: QRS axis: Left Conduction: Conduction: abnormal Abnormal conduction: complete LBBB ST segments: ST segments: Abnormal T waves: T waves: non-specific Previous ECG: Previous ECG: Compared to current Date of previous EC08/01/2024 Similarity: Changes noted (Increased ST elevation in V3 with increased T wave prominence) Interpretation: Interpretation: abnormal Recommended Follow-up: Recommended follow up: cardiac workup Comments: Discussed with cardiology us Maame Whitaker MD ECG ORDERABLES Final Resu lt [facility] * MD CRITICAL CARE ILL/INJURED PATIENT INIT 30-74 MIN (08/01/2024 3:00 PM GLOBAL ACCOUNT DIRECTOR) Narrative Maria Cooper MD - 08/01/2024 3:00 PM GLOBAL ACCOUNT DIRECTOR Maria Cooper MD 08/01/2024 3:13 PM Critical Care Performed by: Maria Cooper MD Authorized by: Maria Cooper MD Critical care provider statement: As reflected in the history, physical exam, orders, notes, and/or MDM, I was personally present while the patient was critically ill and provided critical care services for 40 minutes, excluding time involved in separately billable procedures. Critical care was necessary to treat or prevent imminent or life-threatening deterioration of the following condition(s): unstable angina/acute coronary syndrome and acute congestive heart failure excerbation (CHF) hypoxic respiratory failure Critical care was time spent by me providing the following: continuous telemetry, interpretation of bedside monitors, imaging, and arterial/venous lab draws and serial bedside patient exams initiation and active titration of vasoactive medications and acute diuresis non-invasive positive pressure ventilator management I provided emergent necessary critical care medicine services to this patient. I ordered and reviewed test results and/or imaging studies. I spent time discussing the management of this critically ill patient with consultants and the medical staff. I spent time discussing the management and therapeutic options for this critically ill patient with the patient themselves or with the appropriate designated surrogate decision-maker. I spent time documenting in the medical record. us Maria Cooper MD IN CLINIC/BEDSIDE ORDER GELY Final Result * (ABNORMAL) Blood gas, arterial (08/01/2024 2:44 PM GLOBAL ACCOUNT DIRECTOR) Pathologist [facility] pH, Art 7.35 7.35 - 7.45 PCO2, Arterial 48(H) 35 - 45 mmHg [facility] PO2, Arterial 303(H) 83 - 108 mmHg [facility] HCO3 Art (Calculated) 27 20 - 30 mmol/L [facility] BE, art 0 mmol/L [facility] Comment: Interpretive Data No Reference Range Established Current Interpretive Data was last revised on 2017 O2 Sat Art (Measured) 100(H) 90 - 95 % [facility] Blood 08/01/2024 2:44 PM GLOBAL ACCOUNT DIRECTOR 08/01/2024 2:48 PM GLOBAL ACCOUNT DIRECTOR Maria Cooper MD LAB BLOOD ORDERABLES Fi nal Result Performing Organization Address [facility] Co de Phone Number [facility] [place] [employer] [place] [address] * (ABNORMAL) Lactate (08/01/2024 2:28 PM GLOBAL ACCOUNT DIRECTOR) [facility] Lactate 4.4(C) 0.7 - 2.0 mmol/L Blood 08/01/2024 2:28 PM GLOBAL ACCOUNT DIRECTOR 08/01/2024 2:43 PM GLOBAL ACCOUNT DIRECTOR Maria Cooper MD LAB BLOOD ORDERABLES Fi nal Result Performing Organization Address City/[facility] Co de Phone Number [facility] [place] [employer] [place] [address] * eGFR (08/01/2024 2:28 PM GLOBAL ACCOUNT DIRECTOR) [facility] eGFR 81 >=60 mL/min/1. 73 m2 Comment: Interpretive Data Reference Interval Normal >/= 90 mL/min/1.73m2 Mildly decreased* 60 - 89 mL/min/1.73m2 Mildly to moderately decreased 45 - 59 mL/min/1.73m2 Moderately to severely decreased 30 - 44 mL/min/1.73m2 Severely decreased 15 - 29 mL/min/1.73m2 Kidney Failure < 15 mL/min/1.73m2 *Relative to young adult level Estimated glomerular filtration rate is determined by the 2020 CKD-EPI equation recommended by the National Kidney Foundation (A Unifying Approach to GFR Estimation: Recommendations of the NKF-ASK Task Force on Reassessing the Inclusion of Race in Diagnosing Kidney Disease, JASN 2020). The CKD-EPI equation should not be used for patients with unstable renal function and has not been validated in children and those over 70. Current interpretive data was last reviewed 2021. Blood 08/01/2024 2:28 PM GLOBAL ACCOUNT DIRECTOR 08/01/2024 2:43 PM GLOBAL ACCOUNT DIRECTOR Maria Cooper MD LAB BLOOD ORDERABLES Fi nal Result Performing Organization Address City/[facility]/ZIP Co de Phone Number [facility] [place] [place] [address] * Critical Result Callback Chemistry (08/01/2024 2:28 PM GLOBAL ACCOUNT DIRECTOR) Date Notified [id number] Time Notified 1509 [facility] TestName [place] [facility] Called/Read Back Alan [facility] Credentials MD [facility] Called By trevor [facility] Blood 08/01/2024 2:28 PM GLOBAL ACCOUNT DIRECTOR 08/01/2024 2:43 PM GLOBAL ACCOUNT DIRECTOR Maria Cooper MD LAB BLOOD ORDERABLES Fi nal Result [facility] [place] [place] [address] * (ABNORMAL) Pro B-type natriuretic peptide (08/01/2024 2:28 PM GLOBAL ACCOUNT DIRECTOR) NT-proBNP 16,652(H) <=300 pg/mL Comment: Interpretive Comments: A. Dyspnea in Acute Care Setting All Ages: < 300 pg/ml, acute heart failure unlikely. < 50 yrs: 300 - 450 pg/ml, further investigation warranted. > 450 pg/ml, acute heart failure likely. 50 - 74 yrs: 300 - 900 pg/ml, further investigation warranted. > 900 pg/ml, acute heart failure likely . > or = 75 yrs: 450 - 1800 pg/ml, further investigation warranted. > 1800 pg/ml, acute heart failure likely. B. Non-acute Setting < 75 yrs < 125 pg/ml, rules out heart failure. > or = 125 pg/ml, further investigation warranted. > or = 75 yrs < 450 pg/ml, rules out heart failure. > or = 450 pg/ml, further investigation warranted. - Knowledge of each individual patient's NT-proBNP range may be more useful than using similar cut-points for every patient. Please note that marked elevations in NT-proBNP levels may be observed in state other than Left Ventricular Congestive Failure, including: acute coronary syndromes, right heart strain/failure (including pulmonary embolism and cor pulmonale), critical illness, renal failure, as well as advanced age. - References: 1. Murtaza TIERNEY et.al. Eur Heart J. 2006:27:330-337. 2. Ric RW, Cristin DEWITT. J. AM Fernando Cardiol: Cardiovasc Imag. 2009;2: 216- 225. Interpretive Data Last Revised Date: 2018. Blood 08/01/2024 2:28 PM GLOBAL ACCOUNT DIRECTOR 08/01/2024 2:43 PM GLOBAL ACCOUNT DIRECTOR Maria Cooper MD LAB BLOOD ORDERABLES Fi nal Result Performing Organization Address City/[facility] Co wy Phone Number [facility] [place] [address] * (ABNORMAL) Calcium, ionized (08/01/2024 2:28 PM GLOBAL ACCOUNT DIRECTOR) Calcium, Ionized 4.17(L) 4.50 - 5.10 mg/dL Blood 08/01/2024 2:28 PM GLOBAL ACCOUNT DIRECTOR 08/01/2024 2:37 PM GLOBAL ACCOUNT DIRECTOR Maria Cooper MD LAB BLOOD ORDERABLES Fi nal Result Performing Organization Address City/State/[facility] Co de Phone Number [facility] [place] [address] * (ABNORMAL) Phosphorus (08/01/2024 2:28 PM GLOBAL ACCOUNT DIRECTOR) [facility] Phosphorus, pl 5.2(H) 2.3 - 4.5 mg/dL Blood 08/01/2024 2:28 PM GLOBAL ACCOUNT DIRECTOR 08/01/2024 2:43 PM GLOBAL ACCOUNT DIRECTOR Maria Cooper MD LAB BLOOD ORDERABLES Fi nal Result Performing Organization Address [facility] Co de Phone Number [facility] [place] [address] * Magnesium (08/01/2024 2:28 PM GLOBAL ACCOUNT DIRECTOR) [facility] Magnesium 1.9 1.4 - 2.5 mg/dL Blood 08/01/2024 2:28 PM GLOBAL ACCOUNT DIRECTOR 08/01/2024 2:43 PM GLOBAL ACCOUNT DIRECTOR Maria Cooper MD LAB BLOOD ORDERABLES Fi nal Result Performing Organization Address [facility] de Phone Number [facility] [place] [address] * (ABNORMAL) Comprehensive metabolic panel (08/01/2024 2:28 PM GLOBAL ACCOUNT DIRECTOR) [facility] Sodium 143 135 - 145 mmol/L Potassium, pl 3.9 3.3 - 4.9 mmol/L [facility] Chloride 103 97 - 110 mmol/L [facility] CO2 25 22 - 32 mmol/L [facility] Anion gap 15 2 - 15 mmol/L [facility] BUN 7 6 - 25 mg/dL [facility] Creatinine 0.81 0.60 - 1.10 mg/dL [facility] Glucose 270(H) 70 - 199 mg/dL [facility] Comment: Interpretive Data Fasting glucose >/= 126 mg/dl is diagnostic for diabetes. Fasting is defined as no caloric intake for at least 8 hours. Fasting glucose between 100 mg/dl to 125 mg/dl is diagnostic of prediabetes. In a patient with classic symptoms of hyperglycemia or hyperglycemic crisis, a random glucose >/= 200 mg/dl is diagnostic for diabetes. In the absence of unequivocal hyperglycemia, results should be confirmed by repeat testing. The classification and Diagnosis of Diabetes Diabetes Care 2021; 46: S19-S40. Current interpretive data was last revised 2022. Calcium 8.4(L) 8.5 - 10.3 mg/dL [facility] Bilirubin, total 0.5 0.1 - 1.2 mg/dL [facility] Protein, pl 6.2(L) 6.5 - 8.5 g/dL [facility] Albumin 3.3(L) 3.5 - 5.0 g/dL [facility] Alk phos 91 40 - 130 Units/L [facility] ALT 8 7 - 45 Units/L [facility] AST 30 10 - 45 Units/L [facility] Blood 08/01/2024 2:28 PM GLOBAL ACCOUNT DIRECTOR 08/01/2024 2:43 PM GLOBAL ACCOUNT DIRECTOR Maria Cooper MD LAB BLOOD ORDERABLES nal Result [facility] [place] [address] * aPTT (08/01/2024 2:19 PM GLOBAL ACCOUNT DIRECTOR) [facility] aPTT 34 28 - 38 sec Comment: Interpretive Data Heparin therapeutic range: 66.0 - 100.0 seconds. Range based on correlation with therapeutic heparin activity range of 0.3 - 0.7 Units/mL. Current interpretive data was last revised on 2023. Blood 08/01/2024 2:19 PM GLOBAL ACCOUNT DIRECTOR 08/01/2024 2:40 PM GLOBAL ACCOUNT DIRECTOR Narrative [facility] - 08/01/2024 2:49 PM GLOBAL ACCOUNT DIRECTOR Baseline prior to heparin initiation Maria Cooper MD LAB BLOOD ORDERABLES Fi nal Result Performing Organization Address [facility] Co de Phone Number [facility] [place] [address] * Protime-INR (08/01/2024 2:19 PM GLOBAL ACCOUNT DIRECTOR) [facility] PT 12.0 9.7 - 13.0 sec INR 1.11 0.90 - 1.20 [facility] Comment: Interpretive data Oral anticoagulant therapeutic ranges: Venous thromboembolism prophylaxis or treatment: 2.0-3.0 CARDIOLOGY Standard range: 2.0-3.0 High-intensity range: 2.5-3.5 Refer to indication-specific guidelines for appropriate target ranges for prosthetic heart valve replacement. Current interpretive data was last revised on 2019. Blood 08/01/2024 2:19 PM GLOBAL ACCOUNT DIRECTOR 08/01/2024 2:40 PM GLOBAL ACCOUNT DIRECTOR Narrative [facility] - 08/01/2024 2:49 PM GLOBAL ACCOUNT DIRECTOR Baseline prior to heparin initiation us Maria Cooper MD LAB BLOOD ORDERABLES Fi nal Result Performing Organization Address [facility] de Phone Number [facility] [place] [address] * (ABNORMAL) CBC without differential (08/01/2024 2:19 PM GLOBAL ACCOUNT DIRECTOR) [facility] WBC 10.8(H) 3.8 - 9.9 K/cumm Hgb 11.3(L) 11.9 - 15.5 g/dL [facility] Hct 36.0 35.6 - 45.5 % [facility] Plt 385 150 - 400 K/cumm [facility] MPV 11.0 9.1 - 12.3 fL [facility] RBC 4.15 3.90 - 5.20 M/cumm [facility] MCV 86.7 81.3 - 96.4 fL [facility] MCH 27.2 27.1 - 33.3 pg [facility] MCHC 31.4(L) 32.3 - 35.7 g/dL [facility] RDW CV 15.9(H) 11.1 - 14.9 % [facility] RDW SD 50.1(H) 35.7 - 48.1 fL [facility] NRBC abs 0.00 0.00 - 0.01 K/cumm [facility] Blood 08/01/2024 2:19 PM GLOBAL ACCOUNT DIRECTOR 08/01/2024 2:43 PM GLOBAL ACCOUNT DIRECTOR Narrative [facility] - 08/01/2024 2:52 PM GLOBAL ACCOUNT DIRECTOR Baseline prior to heparin initiation Maria Cooper MD LAB BLOOD ORDERABLES Fi nal Result [facility] [place] [address] * Potassium, whole blood (08/01/2024 1:59 PM GLOBAL ACCOUNT DIRECTOR) Pathologist [facility] Potassium, bld 3.8 3.3 - 4.9 mmol/L Blood 08/01/2024 1:59 PM GLOBAL ACCOUNT DIRECTOR 08/01/2024 2:05 PM GLOBAL ACCOUNT DIRECTOR Result [facility] Alan Sandoval MD LAB BLOOD ORDERABLES Final Result Performing Organization Address [facility] Co de Phone Number [facility] [place] [address] * (ABNORMAL) Troponin I high-sensitivity series (baseline, 2hr, 4hr, 6hr) (08/01/2024 1:58 PM GLOBAL ACCOUNT DIRECTOR) Pathologist [facility] Trop I hs 25(H) <=17 ng/L Comment: Interpretive Data For further [facility] resources including the diagnostic algorithm and an aid in interpretation, copy and paste this link: [email or web address] Current Interpretive Data last revised 2019. Blood 08/01/2024 1:58 PM GLOBAL ACCOUNT DIRECTOR 08/01/2024 2:26 PM GLOBAL ACCOUNT DIRECTOR Justyn Beltran NP LAB BLOOD ORDERABLES Final Resul t Performing Organization Address [facility] Co de Phone Number [facility] [place] [address] * ECG 12-LEAD (08/01/2024 1:54 PM GLOBAL ACCOUNT DIRECTOR) Narrative [facility] - 08/01/2024 1:54 PM GLOBAL ACCOUNT DIRECTOR Maame Whitaker MD 08/01/2024 1:56 PM ECG 12 lead Date/Time: 08/01/2024 1:54 PM Performed by: Maame Whitaker MD Authorized by: Maame Whitaker MD Rate: ECG rate: 115 ECG rate assessment: tachycardic Rhythm: Rhythm: atrial fibrillation Ectopy: Ectopy: none QRS: QRS axis: Left QRS intervals: Wide Conduction: Conduction: abnormal Abnormal conduction: complete LBBB T waves: T waves: non-specific Previous ECG: Previous ECG: Compared to current Date of previous EC07/29/2024 Comparison ECG info: Compared to prior EKG, new complete left bundle-branch block, apparent atrial fibrillation also new from prior Similarity: Changes noted Interpretation: Interpretation: STEMI Recommended Follow-up: Recommended follow up: cardiac workup us Maame Whitaker MD ECG ORDERABLES Final Resu lt Performing Organization Address [facility] Co de Phone Number [facility] * CT Chest PE (CTA) W Contrast (08/01/2024 12:36 PM GLOBAL ACCOUNT DIRECTOR) Anatomical Region Laterality Modality Body N/A Computed Tomogra phy 08/01/2024 1:03 PM GLOBAL ACCOUNT DIRECTOR Impressions 08/01/2024 2:15 PM GLOBAL ACCOUNT DIRECTOR 1. No pulmonary embolism. 2. Moderate pulmonary edema and trace bilateral pleural effusions. 3. Age indeterminant L1 compression fracture, recommend correlation with point tenderness or outside imaging available. Dictated by: Lalo Diaz MD The radiology attending physician has personally reviewed this study, and had reviewed and/or edited this written report and agrees with it. Electronically signed by: Bal Owens M.D. Narrative 08/01/2024 2:15 PM GLOBAL ACCOUNT DIRECTOR EXAMINATION: CT CHEST PE (CTA) W CONTRAST HISTORY: Concern for pulmonary embolism TECHNIQUE: Computed tomographic images were acquired using a chest angiographic protocol optimized for pulmonary embolism. Contrast enhanced transaxial images were obtained following the intravenous administration of 94 ml of nonionic contrast. Multiplanar reformatted images and three-dimensional images were obtained on the 3-D workstation and sent to the PACS archival system. COMPARISON: None FINDINGS: Trachea is normal. No supraclavicular, axillary, or mediastinal lymphadenopathy. Heart size within normal limits. Trace pericardial fluid is present. There is no pulmonary embolism. Septal line thickening at the lung bases reflecting pulmonary edema. Small bilateral pleural effusions and atelectasis is present. No pneumothorax. Imaged portion of the abdomen reveals no contributory finding. There is a age indeterminant compression fracture of the L1 vertebral body that is partially imaged. Mild retropulsion of 3 mm is present. Procedure Note Bal Owens MD - 08/01/2024 EXAMINATION: CT CHEST PE (CTA) W CONTRAST HISTORY: Concern for pulmonary embolism TECHNIQUE: Computed tomographic images were acquired using a chest angiographic protocol optimized for pulmonary embolism. Contrast enhanced transaxial images were obtained following the intravenous administration of 94 ml of nonionic contrast. Multiplanar reformatted images and three-dimensional images were obtained on the 3-D workstation and sent to the PACS archival system. COMPARISON: None FINDINGS: Trachea is normal. No supraclavicular, axillary, or mediastinal lymphadenopathy. Heart size within normal limits. Trace pericardial fluid is present. There is no pulmonary embolism. Septal line thickening at the lung bases reflecting pulmonary edema. Small bilateral pleural effusions and atelectasis is present. No pneumothorax. Imaged portion of the abdomen reveals no contributory finding. There is a age indeterminant compression fracture of the L1 vertebral body that is partially imaged. Mild retropulsion of 3 mm is present. IMPRESSION: 1. No pulmonary embolism. 2. Moderate pulmonary edema and trace bilateral pleural effusions. 3. Age indeterminant L1 compression fracture, recommend correlation with point tenderness or outside imaging available. Dictated by: Lalo Diaz MD The radiology attending physician has personally reviewed this study, and had reviewed and/or edited this written report and agrees with it. Electronically signed by: Bal Owens M.D. Justyn Beltran NP IMG CT PROCEDURES Final Result * POCT glucose (07/31/2024 6:11 AM GLOBAL ACCOUNT DIRECTOR) Glucose, POC 91 70 - 199 mg/dL Blood 07/31/2024 6:11 AM GLOBAL ACCOUNT DIRECTOR 07/31/2024 6:11 AM GLOBAL ACCOUNT DIRECTOR Asaf English MD LAB POCT ORDERABLES - DEVICE Final Result Performing Organization Address City/[facility]/ZIP Co de Phone Number [facility] [place] [address] * (ABNORMAL) Urinalysis reflex to microscopic and culture Urine (07/30/2024 12:36 AM GLOBAL ACCOUNT DIRECTOR) Color, ur Yellow Yellow Clarity, ur Cloudy(A) Clear [facility] Specific gravity, ur 1.015 1.003 - 1.030 [facility] pH, urine 6.0 [facility] Comment: Interpretive Data U rine pH is affected by diet, medications, systemic acid-base disturbances, and renal tubular function. pH may affect urinary stone formation. For example, urine pH below 6.0 may help reduce the tendency for calcium phosphate stones and pH greater than 6.0 may reduce the tendency for uric acid stone formation. Source: [facility] Current Interpretive Data was last revised on 2017 Protein, ur ql Trace Negative [facility] Glucose, ur ql Negative Negative [facility] Ketones, ur Negative Negative [facility] Bilirubin, ur Negative Negative [facility] Blood, ur Negative Negative [facility] Urobilinogen, ur <2.0 <2.0 mg/dL [facility] Nitrite, ur Positive(A) Negative [facility] Leukocyte esterase, ur 3+(A) Negative [facility] UA reflex comment Reflex to microscopic UA will be performed. [facility] Urine 07/30/2024 12:3 6 AM GLOBAL ACCOUNT DIRECTOR 07/30/2024 12:42 AM GLOBAL ACCOUNT DIRECTOR Bernardo Lundy MD LAB MICROBIOLOGY - GE NERAL ORDERABLES Final Result Performing Organization Address City/[facility]/ZIP Co de Phone Number [facility] [place] [address] * (ABNORMAL) Urinalysis, microscopic only (07/30/2024 12:36 AM GLOBAL ACCOUNT DIRECTOR) WBC, ur 21-50(A) 0 - 5 /HPF RBC, ur 3-5(A) 0 - 2 /HPF [facility] Epithelial cells, squamous, ur 1-5 0 - 5 /HPF [facility] Epithelial cells, renal, ur 1-5(A) 0 - 0 /HPF [facility] Bacteria, ur 2+(A) [facility] Mucous, ur Present(A) [facility] Culture Reflex Comment Reflex to urine culture will be performed. [facility] Urine 07/30/2024 12:3 6 AM GLOBAL ACCOUNT DIRECTOR 07/30/2024 12:42 AM GLOBAL ACCOUNT DIRECTOR Bernardo Lundy MD LAB URINE ORDERABLES Final Result Performing Organization Address [facility] Co de Phone Number [facility] [place] [address] * (ABNORMAL) Urine culture Urine (07/30/2024 12:36 AM GLOBAL ACCOUNT DIRECTOR) Report Final Report: Greater than or equal to 100,000 colonies/mL of Escherichia coli Greater than or equal to 100,000 colonies/mL of Escherichia coli #2 (.) Organism ESCHERICHIA COLI [facility] Organism ESCHERICHIA COLI [facility] Urine 07/30/2024 12:3 6 AM GLOBAL ACCOUNT DIRECTOR 07/30/2024 1:33 AM GLOBAL ACCOUNT DIRECTOR Narrative [facility] - 08/01/2024 11:11 AM GLOBAL ACCOUNT DIRECTOR Urine culture reflexed based upon urinalysis results. Testing performed by [facility] ([phone]) Organism Antibiotic Method Susceptibility Escherichia coli Ampicillin INTERPRETATION Susceptible Escherichia coli Cefazolin INTERPRETATION Susceptible Escherichia coli Nitrofurantoin INTERPRETATION Susceptible Escherichia coli Gentamicin INTERPRETATION Susceptible Escherichia coli Trimethoprim with Sulfamethoxazole IN TERPRETATION Susceptible Escherichia coli Meropenem INTERPRETATION Susceptible Escherichia coli Cefepime INTERPRETATION Susceptible Escherichia coli Ciprofloxacin INTERPRETATION Susceptible Escherichia coli Ceftazidime INTERPRETATION Susceptible Escherichia coli Ceftriaxone INTERPRETATION Susceptible Escherichia coli Piperacillin/Tazobactam INTERPRETATIO N Susceptible Escherichia coli Cephalexin INTERPRETATION Susceptible Escherichia coli Cefuroxime-axetil INTERPRETATION Susceptible Escherichia coli Cefdinir INTERPRETATION Susceptible Escherichia coli Ampicillin INTERPRETATION Susceptible Escherichia coli Cefazolin INTERPRETATION Susceptible Escherichia coli Nitrofurantoin INTERPRETATION Susceptible Escherichia coli Gentamicin INTERPRETATION Susceptible Escherichia coli Trimethoprim with Sulfamethoxazole IN TERPRETATION Susceptible Escherichia coli Meropenem INTERPRETATION Susceptible Escherichia coli Cefepime INTERPRETATION Susceptible Escherichia coli Ciprofloxacin INTERPRETATION Susceptible Escherichia coli Ceftazidime INTERPRETATION Susceptible Escherichia coli Ceftriaxone INTERPRETATION Susceptible Escherichia coli Piperacillin/Tazobactam INTERPRETATIO N Susceptible Escherichia coli Cephalexin INTERPRETATION Susceptible Escherichia coli Cefuroxime-axetil INTERPRETATION Susceptible Escherichia coli Cefdinir INTERPRETATION Susceptible us Bernardo Lundy MD LAB MICROBIOLOGY - NERAL ORDERABLES Final Result [facility] [place] [address] * ED PERIPHERAL LINE INSERTION (07/29/2024 2:37 PM GLOBAL ACCOUNT DIRECTOR) Narrative Ernesto Edwards MD - 07/29/2024 2:37 PM GLOBAL ACCOUNT DIRECTOR Ernesto Edwards MD 07/29/2024 2:58 PM Peripheral line insertion Date/Time: 07/29/2024 2:37 PM Performed by: Chris Chan MD Authorized by: Ernesto Edwards MD Indications: Nursing unable to obtain Pre-procedure details: Hand hygiene: Hand hygiene performed prior to insertion Sterile barrier technique: All elements of maximal sterile technique followed Skin preparation: ChloraPrep Skin preparation agent: Skin preparation agent completely dried prior to procedure Anesthesia (see MAR for exact dosages): Anesthesia method: None Procedure details: Catheter size: 20 G Laterality: Right Location: Antecubital fossa Number of attempts: 1 Ultrasound guidance was used to confirm vessel patency and needle position: Yes Successful placement: yes Post-procedure details: Post-procedure: Dressing applied Patient tolerance of procedure: Tolerated well, no immediate complications us Ernesto Edwards MD IN CLINIC/BEDSIDE ORDERAB LES Final Result * POCUS CVC (07/29/2024 2:19 PM GLOBAL ACCOUNT DIRECTOR) Anatomical Region Laterality Modality Other 07/29/2024 1:47 PM GLOBAL ACCOUNT DIRECTOR Narrative 08/02/2024 5:26 PM CDT Performed by: Chris Chan Vascular access : Exam Information: Exam type: Diagnostic Procedure type: Peripheral venous access See procedure note in Epic: Electronically signed by Chris Chan on Monday, July 29, 2024 at 2:36 PM I have reviewed the images & the resident's interpretation. I agree with the findings. Electronically signed by Dolores Hayes on Friday, August 02, 2024 at 5:26 PM I have reviewed the images & the resident's interpretation. I agree with the findings. Procedure Note Dolores Hayes MD - 08/02/2024 Performed by: Chris Chan Vascular access : Exam Information: Exam type: Diagnostic Procedure type: Peripheral venous access See procedure note in Epic: Electronically signed by Chris Chan on Saturday, July 29, 2024 at 2:36PM I have reviewed the images & the resident's interpretation. I agree withthe findings. Electronically signed by Dolores Hayes on Friday, August 02, 2024 at5:26 PM I have reviewed the images & the resident's interpretation. I agree withthe findings. us Ernesto Edwards MD POCUS ORDERABLES Final Re sult * Troponin I high-sensitivity series (baseline, 2hr, 4hr, 6hr) (07/29/2024 2:16 PM GLOBAL ACCOUNT DIRECTOR) Trop I hs <4 <=17 ng/L Comment: Interpretive Data For further hscTnI resources including the diagnostic algorithm and an aid in interpretation, copy and paste this link: [email or web address]/[email or web address] Current Interpretive Data last revised 2019. Blood 07/29/2024 2:16 PM GLOBAL ACCOUNT DIRECTOR 07/29/2024 2:26 PM GLOBAL ACCOUNT DIRECTOR us Bernardo Lundy MD LAB BLOOD ORDERABLES Final Result Performing Organization Address City/[facility] Co de Phone Number [facility] [place] [address] * eGFR (07/29/2024 2:16 PM GLOBAL ACCOUNT DIRECTOR) eGFR 90 >=60 mL/min/1. 73 m2 Comment: Interpretive Data Reference Interval Normal >/= 90 mL/min/1.73m2 Mildly decreased* 60 - 89 mL/min/1.73m2 Mildly to moderately decreased 45 - 59 mL/min/1.73m2 Moderately to severely decreased 30 - 44 mL/min/1.73m2 Severely decreased 15 - 29 mL/min/1.73m2 Kidney Failure < 15 mL/min/1.73m2 *Relative to young adult level Estimated glomerular filtration rate is determined by the 2020 CKD-EPI equation recommended by the National Kid[employer] (A Unifying Approach to GFR Estimation: Recommendations of the NKF-ASK Task Force on Reassessing the Inclusion of Race in Diagnosing Kidney Disease, JASN 2020). The CKD-EPI equation should not be used for patients with unstable renal function and has not been validated in children and those over 70. Current interpretive data was last reviewed 2021. Blood 07/29/2024 2:16 PM GLOBAL ACCOUNT DIRECTOR 07/29/2024 2:26 PM GLOBAL ACCOUNT DIRECTOR Bernardo Lundy MD LAB BLOOD ORDERABLES Final Result Performing Organization Address [facility] Co de Phone Number [facility] [place] [address] * Differential, auto (07/29/2024 2:16 PM GLOBAL ACCOUNT DIRECTOR) Neutrophil abs 4.7 1.5 - 6.5 K/cumm Imm gran abs 0.0 0.0 - 0.1 K/cumm [facility] Lymphocyte abs 0.9 0.8 - 3.3 K/cumm [facility] Monocyte abs 0.3 0.2 - 0.8 K/cumm [facility] Eosinophil abs 0.2 0.0 - 0.5 K/cumm [facility] Basophil abs 0.0 0.0 - 0.1 K/cumm [facility] Neutrophil pct 76.7 % [facility] Comment: Interpretive Data Percent cell count reference ranges are not reported, since discordance with absolute values may lead to misinterpretation of CBC data. Current Interpretive Data was last revised on 2017. Imm gran pct 0.5 % [facility] Comment: Interpretive Data Percent cell count reference ranges are not reported, since discordance with absolute values may lead to misinterpretation of CBC data. Current Interpretive Data was last revised on 2017. Lymphocyte pct 14.3 % [facility] Comment: Interpretive Data Percent cell count reference ranges are not reported, since discordance with absolute values may lead to misinterpretation of CBC data. Current Interpretive Data was last revised on 2017. Monocyte pct 5.2 % [facility] Comment: Interpretive Data Percent cell count reference ranges are not reported, since discordance with absolute values may lead to misinterpretation of CBC data. Current Interpretive Data was last revised on 2017. Eosinophil pct 2.8 % [facility] Comment: Interpretive Data Percent cell count reference ranges are not reported, since discordance with absolute values may lead to misinterpretation of CBC data. Current Interpretive Data was last revised on 2017. Basophil pct 0.5 % [facility] Comment: Interpretive Data Percent cell count reference ranges are not reported, since discordance with absolute values may lead to misinterpretation of CBC data. Current Interpretive Data was last revised on 2017. Blood 07/29/2024 2:16 PM GLOBAL ACCOUNT DIRECTOR 07/29/2024 2:26 PM GLOBAL ACCOUNT DIRECTOR us Bernardo Lundy MD LAB BLOOD ORDERABLES Final Result [facility] [place] [address] * Pro B-type natriuretic peptide (07/29/2024 2:16 PM GLOBAL ACCOUNT DIRECTOR) NT-proBNP 260 <=300 pg/mL Comment: Interpretive Comments: A. Dyspnea in Acute Care Setting All Ages: < 300 pg/ml, acute heart failure unlikely. < 50 yrs: 300 - 450 pg/ml, further investigation warranted. > 450 pg/ml, acute heart failure likely. 50 - 74 yrs: 300 - 900 pg/ml, further investigation warranted. > 900 pg/ml, acute heart failure likely . > or = 75 yrs: 450 - 1800 pg/ml, further investigation warranted. > 1800 pg/ml, acute heart failure likely. B. Non-acute Setting < 75 yrs < 125 pg/ml, rules out heart failure. > or = 125 pg/ml, further investigation warranted. > or = 75 yrs < 450 pg/ml, rules out heart failure. > or = 450 pg/ml, further investigation warranted. - Knowledge of each individual patient's NT-proBNP range may be more useful than using similar cut-points for every patient. Please note that marked elevations in NT-proBNP levels may be observed in state other than Left Ventricular Congestive Failure, including: acute coronary syndromes, right heart strain/failure (including pulmonary embolism and cor pulmonale), critical illness, renal failure, as well as advanced age. - References: 1. Murtaza TIERNEY et.al. Eur Heart J. 2006:27:330-337. 2. Ric RW, Cristin AM. J. AM Fernando Cardiol: Cardiovasc Imag. 2009;2: 216- 225. Interpretive Data Last Revised Date: 2018. Blood 07/29/2024 2:16 PM GLOBAL ACCOUNT DIRECTOR 07/29/2024 2:26 PM GLOBAL ACCOUNT DIRECTOR Bernardo Lundy MD LAB BLOOD ORDERABLES Final Result [facility] [place] [address] * (ABNORMAL) Thyroid Function Valencia (07/29/2024 2:16 PM GLOBAL ACCOUNT DIRECTOR) TSH 20.30(H) 0.30 - 4.20 mcIUnit/mL Blood 07/29/2024 2:16 PM GLOBAL ACCOUNT DIRECTOR 07/29/2024 2:26 PM GLOBAL ACCOUNT DIRECTOR Bernardo Lundy MD LAB BLOOD ORDERABLES Final Result [facility] Department [place] [address] * (ABNORMAL) CBC with auto differential (07/29/2024 2:16 PM GLOBAL ACCOUNT DIRECTOR) WBC 6.1 3.8 - 9.9 K/cumm Hgb 8.9(L) 11.9 - 15.5 g/dL [facility] Hct 27.4(L) 35.6 - 45.5 % [facility] Plt 209 150 - 400 K/cumm [facility] MPV 11.3 9.1 - 12.3 fL [facility] RBC 3.22(L) 3.90 - 5.20 M/cumm [facility] MCV 85.1 81.3 - 96.4 fL [facility] MCH 27.6 27.1 - 33.3 pg [facility] MCHC 32.5 32.3 - 35.7 g/dL [facility] RDW CV 15.3(H) 11.1 - 14.9 % [facility] RDW SD 47.2 35.7 - 48.1 fL [facility] NRBC abs 0.00 0.00 - 0.01 K/cumm [facility] Blood 07/29/2024 2:16 PM GLOBAL ACCOUNT DIRECTOR 07/29/2024 2:26 PM GLOBAL ACCOUNT DIRECTOR us Bernardo Lundy MD LAB BLOOD ORDERABLES Final Result [facility] [place] [address] * (ABNORMAL) T4, free (07/29/2024 2:16 PM GLOBAL ACCOUNT DIRECTOR) Free T4 0.66(L) 0.90 - 1.70 ng/dL Blood 07/29/2024 2:16 PM GLOBAL ACCOUNT DIRECTOR 07/29/2024 2:26 PM GLOBAL ACCOUNT DIRECTOR Narrative [facility] - 07/29/2024 3:26 PM GLOBAL ACCOUNT DIRECTOR This test was reflexed from a TSH result. us Bernardo Lundy MD LAB BLOOD ORDERABLES Edited Result - Final [facility] [place] [address] * (ABNORMAL) Comprehensive metabolic panel (07/29/2024 2:16 PM GLOBAL ACCOUNT DIRECTOR) Sodium 135 135 - 145 mmol/L Potassium, pl 3.2(L) 3.3 - 4.9 mmol/L [facility] Chloride 95(L) 97 - 110 mmol/L [facility] CO2 30 22 - 32 mmol/L [facility] Anion gap 10 2 - 15 mmol/L [facility] BUN 12 6 - 25 mg/dL [facility] Creatinine 0.74 0.60 - 1.10 mg/dL [facility] Glucose 100 70 - 199 mg/dL [facility] Comment: Interpretive Data Fasting glucose >/= 126 mg/dl is diagnostic for diabetes. Fasting is defined as no caloric intake for at least 8 hours. Fasting glucose between 100 mg/dl to 125 mg/dl is diagnostic of prediabetes. In a patient with classic symptoms of hyperglycemia or hyperglycemic crisis, a random glucose >/= 200 mg/dl is diagnostic for diabetes. In the absence of unequivocal hyperglycemia, results should be confirmed by repeat testing. The classification and Diagnosis of Diabetes Diabetes Care 2021; 46: S19-S40. Current interpretive data was last revised 2022. Calcium 9.3 8.5 - 10.3 mg/dL [facility] Bilirubin, total 0.7 0.1 - 1.2 mg/dL [facility] Protein, pl 6.5 6.5 - 8.5 g/dL [facility] Albumin 3.4(L) 3.5 - 5.0 g/dL [facility] Alk phos 87 40 - 130 Units/L [facility] ALT 7 7 - 45 Units/L [facility] AST 24 10 - 45 Units/L [facility] Blood 07/29/2024 2:16 PM GLOBAL ACCOUNT DIRECTOR 07/29/2024 2:26 PM GLOBAL ACCOUNT DIRECTOR us Bernardo Lundy MD LAB BLOOD ORDERABLES Final Result [facility] [place] [address] * XR Chest 1 Vw Portable (07/29/2024 2:00 PM GLOBAL ACCOUNT DIRECTOR) Anatomical Region Laterality Modality Body, Chest N/A Computed Radiogr aphy 07/29/2024 4:50 PM GLOBAL ACCOUNT DIRECTOR Impressions 07/29/2024 5:54 PM GLOBAL ACCOUNT DIRECTOR No comparison available. Eventration of the right hemidiaphragm. The lungs are clear. No pleural effusion or pneumothorax. The cardiomediastinal silhouette is mildly enlarged. Dictated by: Saravanan Zamora M.D. (Ramanan) The radiology attending physician has personally reviewed this study, and had reviewed and/or edited this written report and agrees with it. Electronically signed by: Bambi Joiner M.D. Narrative 07/29/2024 5:54 PM GLOBAL ACCOUNT DIRECTOR EXAMINATION: 1 view chest radiograph Procedure Note Bambi Joiner MD - 07/29/2024 EXAMINATION: 1 view chest radiograph IMPRESSION: No comparison available. Eventration of the right hemidiaphragm. The lungs are clear. No pleural effusion or pneumothorax. The cardiomediastinal silhouette is mildly enlarged. Dictated by: Saravanan Zamora M.D. (Ramanan) The radiology attending physician has personally reviewed this study, and had reviewed and/or edited this written report and agrees with it. Electronically signed by: Bambi Joiner M.D. us Bernardo Lundy MD IMG XR PROCEDURES Fin al Result * ECG 12-LEAD (07/29/2024 1:49 PM GLOBAL ACCOUNT DIRECTOR) Narrative [facility] - 07/29/2024 1:49 PM GLOBAL ACCOUNT DIRECTOR Ernesto Edwards MD 07/29/2024 1:54 PM ECG 12 lead Date/Time: 07/29/2024 1:49 PM Performed by: Ernesto Edwards MD Authorized by: Bernardo Lundy MD Comments: NSR, rate of 64, Normal axis, normal intervals, TWi in leads III, V2-V6 as well as aVF, new compared to 12/08/20. No clear STEMI Procedure Note Ernesto Edwards MD - 07/29/2024 1:49 PM CST Procedure ECG 12 lead Date/Time: 07/29/2024 1:49 PM Performed by: Ernesto Edwards MD Authorized by: Bernardo Lundy MD Comments: NSR, rate of 64, Normal axis, normal intervals, TWi in leads III, V2-V6as well as aVF, new compared to 12/08/20. No clear STEMI Ernesto Edwards MD 07/29/24 1354 Bernardo Lundy MD ECG ORDERABLES Final Result [facility] from Last 3 Months Additional Health Concerns Infection Onset Date Last Indicated MDR gram neg/ESBL Comment:Added from external infection. Source: [facility]. 01/01/24 PROTEUS in leg wound 01/01/2024 Human metapneumovirus, contact + droplet 025 08/01/2024 Insurance MEDICARE SOLUTIONS MEDICARE SOLUTIONS Advance Directives For more information, please contact: [phone] * Full Code (Latest Code Status on File) Date Activated Date Inactivated Comments 08/01/2024 9:52 PM 08/08/2024 10:03 PM Care Teams Range Ecologist Relationship Specialty Start Date End Date Hardik Andres MD [address] [place] [address] PCP - General 01/09/21
--- OUTSIDE RECORDS SUMMARY | 2024-08-13 11:50 | XMS_ITS | Encounter Summary ---
Author Organization [facility] Healthcare Address [address] [place] [address] Care Team Providers Care Wooling Machine Operator Name Role Phone Hardik Andres MD Primary Care Provider [phone] Encounter Details Date Type Department Care Team (Late st Contact Info) Description 07/31/2024 Results Follow-Up [facility] Emergency Department [address] [place] [address] Declan Malhotra RN Social History Tobacco Use Types Packs/Day Years Used Date Smoking Tobacco: Every Day Cigarettes [facility] Utilities Answer Date Recorded In the past 12 months has [employer] electric, gas, oil, or water company threatened to shut off services in your [...] week 08/03/2024 How often do you attend chur ch or yarsanism services? More than 4 times per year 08/03/2024 Do you belong to any clubs o r organizations such as yazidism groups, unions, fraternal or athletic groups, or [...] any time in the past 12 m onths, were you homeless or living in a residential (including now)? No 08/03/2024 Personal Safety Answer [...] on file Sexual Orientation Not on file documented as of this encounter Plan of Treatment Not on file documented as of this encounter Visit Diagnoses Not on filedocumented in this encounter Additional Health Concerns Infection Onset Date Last Indicated Resolved Time MDR gram neg/ESBL Comment:Added from external infection. Source: [facility] - [facility] [place]Note 2]. 01/01/24 PROTEUS in leg wound 01/01/2024 Human metapneumovirus, conta ct + droplet 08/01/2024 08/01/2024 Ring Surveillance Comment:08/02/2024- 9200 NDM-1 ring surveillance. Breanna Padron 08/02/2024 08/02/2024 08/09/2024 3:05 AM C DT documented as of this encounter Care Teams Wooling Machine Operator Relationship Specialty Start Date End Date Hardik Andres MD [address] [place] [address] PCP - General 01/09/21 documented as of this encounter
--- OUTSIDE RECORDS SUMMARY | 2024-08-13 11:50 | XMS_ITS | Patient Health Record ---
Author Organization [facility] Address [address] [place], [place] [id number] Care Team Providers Care Motorsports Technician Name Role Phone MIN PORTILLO Unavailable [phone] Answer, Declined Unavailable Unavailable Reason For Referral No Information Plan Of Treatment No Information Insurance Providers Payer Name Payer Address Payer Phone Subscriber Number Group Number Insured Name Patient Relationship to Insured Coverage Start Date Coverage End Date [employer] [address] [place] [address] [id number] Alisha Montenegro Self - patient is the insured Medical (General) History Medical History History ICD Code neuropathy Asthma/Bronchitis Leg/Feet cramps Open Sores Respiratory disease Thyroid Disease Back Trouble high blood pressure Lung Disease peripheral vascular disease
--- OUTSIDE RECORDS SUMMARY | 2024-08-13 11:50 | XMS_ITS | Clinical Summary ---
Author Organization [facility] Address [address] [place] [address] Care Team Providers Care Telephone Appointment Clerk Name Role Phone Hardik Andres MD Primary Care Provider [phone] [facility],non-owned Affiliates and Associated Physician Practices is amultiple site organization consisting of ambulatory clinics and hospital sitesin [place], [place], [place] and [place]. This disclosure is being madepursuant to the Care Everywhere program and may not contain all information available regarding this patient. Last updated 18.[facility] Allergies Active Allergy Reactions Criticality Noted Date Comments Sulfamethoxazole W-Trimethoprim Unknown 11/24 Ciprofloxacin Unknown 12/08/2020 Social History Tobacco Use Types Packs/Day Years Used Date Smoking Tobacco: Every Day Cigarettes Smokeless Tobacco: Never Alcohol Use Standard Drinks/Week Comments Not Currently 0 (1 standard drink = 0.6 oz pur e alcohol) Sex and Gender Information Value Date Recorded Sex Assigned at Not on file Gender Identity Not on file Sexual Orientation Not on file Last Filed Vital Signs Vital Sign Reading Time Taken Comments Blood Pressure 93/50 12/08/2020 4:35 PM CDT Pulse 74 12/08/2020 4:35 PM CDT Temperature 36.6 C (97.8 F) 12/08/2020 4:35 PM CDT Respiratory Rate 18 12/08/2020 4:35 PM CDT Oxygen Saturation 94% 12/08/2020 4:35 PM CDT Inhaled Oxygen Concentration - - Weight 102.1 kg (225 lb) 12/08/2020 4:35 PM CDT Height 152.4 cm (5') 12/08/2020 4:35 PM CDT Body Mass Index 43.94 12/08/2020 4:35 PM CDT Plan of Treatment Health Maintenance Due Date Last Done Comments BONE DENSITY TESTING 1959 COLOGUARD (AGES 45-75) - COL ON CA SCREENING 1959 COLON MONITORING 1959 COLONOSCOPY - COLON CA SCREENING 1959 CT COLONOGRAPHY - COLON CA SCREENING 1959 Colorectal Cancer Screening 1959 FIT - COLON CA SCREENING 1959 FLEX SIG - COLON CA SCREENING 1959 LIPID TESTING 1959 MAMMOGRAM 1959 HIV SCREENING 1974 HEPATITIS C SCREENING 07/14/1977 DTAP/TDAP/TD VACCINES (1 - Tdap) 1978 PNEUMOCOCCAL VACCINE 50+ (1 of 1 - PCV) 2009 ZOSTER VACCINE (1 of 2) 2009 COVID-19 VACCINE ( - 2023-2 5 season) 2024 INFLUENZA VACCINE (#1) 2024 04/16/2016 DEPRESSION SCREENING 05/27/2024 Respiratory Syncytial Virus (RSV) Vaccine Pt: or over 60 yrs (1 - 1-dose 75+ series) 2034 HEPATITIS B VACCINE Aged Out No longe r eligible based on patient's age to complete this topic HIB VACCINE Aged Out No longer eligi ble based on patient's age to complete this topic HPV VACCINE Aged Out No longer eligi ble based on patient's age to complete this topic MENINGOCOCCAL (Group B) VACC INE SHARED DECISION-MAKING Aged Out No longer eligibl e based on patient's age to complete this topic MENINGOCOCCAL GROUPS A/C/Y/W VACCINE Aged Out No longer eligible b ased on patient's age to complete this topic Care Teams Telephone Appointment Clerk Relationship Specialty Start Date End Date Hardik Andres MD [address] [place] [address] PCP - General 04/08/08
--- OUTSIDE RECORDS SUMMARY | 2024-08-13 11:50 | XMS_ITS | Clinical Summary ---
Author Organization [facility] Address [address] [place] [address] Phone Care Team Providers Care Ad Operations Coordinator Name Role Phone Unavailable Primary Care Provider Unavailabl e Allergies Active Allergy Reactions Criticality Noted Date Comments Ciprofloxacin Unknown 02/11/2024 Listed on OSH paperwork Sulfamethoxazole-Trimethopri m Unknown 02/11/2024 Listed on OSH paperwork Medications cyanocobalamin (vit B-12) 1,000 mcg tablet Take 1,000 mcg by mouth daily. Active ipratropium-al buteroL (Combivent Respimat) 20-100 mcg/actuation Mist Take 1 Puff by inhalation every 6 hours. Active gabapentin (NEURONTIN) 400 mg capsule Take 400 mg by mouth 3 times daily. Active levothyroxine 200 mcg tablet Take 200 mcg by mouth daily in the morning. Active cholecalcifero l, Vitamin D3, (VITAMIN D3) 25 mcg (1,000 unit) Capsule Take 1,000 Units by mouth daily. Active potassium chloride (K-TAB) 20 mEq Extended Release tablet Take 2 Tablets (40 mEq) by mouth every 12 hours. 4 Active acetaminophen (TYLENOL) 500 mg tablet Take 2 Tablets (1,000 mg) by mouth every 8 hours as needed for Pain. 4 Active metoprolol succinate (TOPROL XL) 25 mg Extended Release 24 hour tablet Take 1 Tablet (25 mg) by mouth daily. 4 Active sennosides-doc usate sodium (SENNA-S) 8.6-50 mg tablet Take 2 Tablets by mouth 2 times daily. 4 Active polyethylene glycol (MIRALAX) 17 gram Powder in Packet Take 1 Packet (17 Grams) by mouth 2 times daily. 4 Active naloxone (NARCAN) 0.4 mg/mL Solution Inject 0.25-1 mL (0.1-0.4 mg) by intravenous injection see administration instructions. 4 Active mineral oil-white petrolatum-cer esin (EUCERIN) Cream Apply to affected area see administration instructions. 4 Active mineral oil-white petrolatum-cer esin (EUCERIN) Cream Apply to affected area 2 times daily. 4 Active midodrine (PROAMATINE) 5 mg tablet Take 1 Tablet (5 mg) by mouth every 8 hours. 4 Active oxyCODONE (ROXICODONE) 5 mg tabletIndicati ons:Closed stable burst fracture of first lumbar vertebra, initial encounter ([facility]) Take 1 Tablet (5 mg) by mouth every 4 hours as needed for Pain, Moderate. Max Daily Amount: 30 mg 60 Tablet 4 Active furosemide (LASIX) 20 mg tablet Take 1 Tablet (20 mg) by mouth daily. 5 Active methocarbamoL (ROBAXIN) 750 mg tablet Take 1 Tablet (750 mg) by mouth every 8 hours as needed for Spasm (low back pain). 5 Active pantoprazole (PROTONIX) 40 mg Tablet, Delayed Release (E.C.) Take 1 Tablet (40 mg) by mouth daily. 5 Active sertraline (ZOLOFT) 25 mg tablet Take 1 Tablet (25 mg) by mouth daily. 5 Active Active Problems Problem Noted Date Diagnosed Date Protein-calorie malnutrition, severe 06/25/2024 COVID-19 virus infection 06/20/2024 Acute respiratory failure with hypoxia and hyper capnia 06/20/2024 Wound of left leg 06/16/2024 Generalized weakness 06/16/2024 Failure to thrive in adult 06/07/2024 Debility 06/07/2024 Cellulitis of lower extremity 06/07/2024 CRP elevated 06/06/2024 Chronic systolic congestive heart failure 2024 Tobacco abuse 06/06/2024 Prediabetes 06/06/2024 Fall 06/06/2024 Hypotension 03/01/2024 Endocarditis 02/22/2024 Cellulitis of left lower extremity 02/15/2024 Aspiration pneumonia of both lower lobes 024 Closed stable burst fracture of first lumbar steven tebra 02/14/2024 Bacteremia 02/13/2024 Hip pain, left 02/13/2024 Acute on chronic systolic congestive heart failu re 02/12/2024 Acute hypoxic respiratory failure 02/11/2024 COPD (chronic obstructive pulmonary disease) Chronic low back pain 02/11/2024 Hypokalemia 02/11/2024 History of falling 02/11/2024 Venous stasis dermatitis 02/11/2024 Lymphedema 02/11/2024 Hypothyroidism 02/11/2024 Morbid obesity with BMI of 50.0-59.9, adult 01/25 Resolved Problems Problem Noted Date Diagnosed Date Resolved Date Severe sepsis without septic shock 02/11/2024 02/14/2024 Elevated lactic acid level 02/11/2024 0 02/14/2024 Fever 02/11/2024 02/14/2024 Encounters Date Type Department Care Team Description 07/07/2024 External Device Data [facility]STRACTION Provider, Abstract 06/24/2024 External Device Data [facility] Provider, Abstract 06/18/2024 External Device Data [facility] Provider, Abstract 06/09/2024 External Device Data [facility] Provider, Abstract 06/06/2024 5:36 PM BARKING MACHINE FEEDER - 06/28/2024 1:20 PM BARKING MACHINE FEEDER Hospital Encounter [address] [place] [address] Vicente Christianson MD Nuspl, Annia Orellana, Anderson Teixeira MD Burke, MD Prince Flor Musi, MD Rose, Jose Enrique Manriquez, Kyra Luong MD Hypokalemia Discharge Disposition: [facility]) with Medicare Certification in Anticipation of Skilled Care 06/06/2024 Travel from Last 3 Months Family History Medical History Relation Name Comments No Known Problems Father No Known Problems Mother Relation Name Status Comments Father Mother Social History Tobacco Use Types Packs/Day Years Used Date Smoking Tobacco: Some Days Cigarettes Tobacco Cessation:Ready to Q uit: Not Asked; Counseling Given: Not Answered Feeling Safe Answer Date Recorded Are you in a relationship wi th someone who hurts you emotionally and/or physically? No 06/06/2024 Food Insecurity Answer Date Recorded Social/Environmental Concerns Housing in stability;Lack of supervision;Transportation access 06/06/2024 Transportation Needs Answer Date Record ed Social/Environmental Concerns Housing in stability;Lack of supervision;Transportation access 06/06/2024 Housing Stability Answer Date Recorded Social/Environmental Concerns Housing in stability;Lack of supervision;Transportation access 06/06/2024 Utility Needs Answer Date Recorded Social/Environmental Concerns No concerns Comments Unknown Sex and Gender Information Value Date Recorded Sex Assigned at Not on file Legal Sex Female 4:46 AM CDT Gender Identity Not on file Sexual Orientation Not on file Last Filed Vital Signs Vital Sign Reading Time Taken Comments Blood Pressure 106/59 06/28/2024 5:20 AM BARKING MACHINE FEEDER Pulse 60 06/28/2024 5:20 AM BARKING MACHINE FEEDER Temperature 36.9 C (98.4 F) 06/28/2024 5:20 AM BARKING MACHINE FEEDER Respiratory Rate 14 06/27/2024 10:0 7 PM BARKING MACHINE FEEDER Oxygen Saturation 92% 06/28/2024 5:20 AM BARKING MACHINE FEEDER Inhaled Oxygen Concentration - - Weight 99.7 kg (219 lb 14.4 oz) 06/20/2024 5:00 AM BARKING MACHINE FEEDER Height 152.4 cm (5') 06/06/2024 9:34 PM BARKING MACHINE FEEDER Body Mass Index 42.95 06/06/2024 9:34 PM BARKING MACHINE FEEDER Plan of Treatment Health Maintenance Due Date Last Done Comments DIABETES ANNUAL FOOT EXAM 1977 DIABETES ANNUAL RETINAL EXAM 1977 DIABETES MICROALBUMIN ANNUAL SCREEN 1977 LDL CHOLESTEROL ANNUAL 1977 DTAP/TDAP/TD VACCINES (1 - Tdap) 1978 PAP SMEAR 1989 BREAST CANCER SCREENING 1999 COLORECTAL SCREENING 2004 Colorectal Cancer Screening 2004 FIT-DNA Q 3 years 2004 FIT/FOBT Q 1 year 2004 Flex Sig/CT Colonography Q 5 years 2004 ZOSTER VACCINE (1 of 2) 2009 RSV VACCINE (60+ or ) (1 - Risk 60-74 years 1-dose series) 2019 PNEUMOCOCCAL VACCINE 50+ YEA RS (2 of 2 - PCV) 03/11/2021 03/11/2020 INFLUENZA VACCINE (#1) 2023 03/11/2020 OSTEOPOROSIS SCREENING 2024 DIABETES HBA1C Q 6 MONTHS 08/12/2024 02/13/2024, 12/2023 Procedures Procedure Name Priority Date/Time Associated Diagnosis Comments CBC WITH DIFFERENTIAL Routine 06/24/2024 2:06 AM BARKING MACHINE FEEDER BASIC METABOLIC PANEL Routine 06/24/2024 2:06 AM BARKING MACHINE FEEDER EKG 12-LEAD Pending Discharge 06/23/2024 11:47 AM BARKING MACHINE FEEDER CBC WITH DIFFERENTIAL Routine 06/23/2024 2:41 AM BARKING MACHINE FEEDER BASIC METABOLIC PANEL Routine 06/23/2024 2:41 AM BARKING MACHINE FEEDER XR CHEST PA OR AP 1 VW Pending Discharge 06/22/2024 12:14 PM BARKING MACHINE FEEDER CBC WITH DIFFERENTIAL Routine 06/22/2024 7:30 AM BARKING MACHINE FEEDER BASIC METABOLIC PANEL Routine 06/22/2024 7:30 AM BARKING MACHINE FEEDER RESPIRATORY PATHOGEN PCR PANEL Routine 06/20/2024 11:34 AM BARKING MACHINE FEEDER VITAMIN B12 AND FOLATE Routine 06/20/2024 4:34 AM BARKING MACHINE FEEDER CBC WITH DIFFERENTIAL Routine 06/20/2024 4:33 AM BARKING MACHINE FEEDER BASIC METABOLIC PANEL Routine 06/20/2024 4:33 AM BARKING MACHINE FEEDER BLOOD GAS VENOUS Routine 06/19/2024 11:3 7 AM BARKING MACHINE FEEDER XR CHEST PA OR AP 1 VW Routine 06/19/2024 10:39 AM BARKING MACHINE FEEDER XR ABDOMEN 1 VW Routine 06/19/2024 10:38 AM BARKING MACHINE FEEDER PATHOLOGY Routine 06/19/2024 5:02 AM BARKING MACHINE FEEDER PERIPHERAL BLOOD SMEAR PATHOLOGY INTERP Routine 06/19/2024 5:02 AM BARKING MACHINE FEEDER FERRITIN Routine 06/19/2024 5:02 AM BARKING MACHINE FEEDER IRON, TIBC, AND PERCENT SATURATION Routine 06/19/2024 5:02 AM BARKING MACHINE FEEDER BASIC METABOLIC PANEL Routine 06/19/2024 5:02 AM BARKING MACHINE FEEDER CBC WITH DIFFERENTIAL Routine 06/19/2024 5:02 AM BARKING MACHINE FEEDER EKG 12-LEAD Routine 06/18/2024 9:46 PM BARKING MACHINE FEEDER BASIC METABOLIC PANEL Routine 06/18/2024 3:20 AM BARKING MACHINE FEEDER CBC WITH DIFFERENTIAL Routine 06/18/2024 3:20 AM BARKING MACHINE FEEDER BLOOD GAS VENOUS Routine 06/17/2024 10:5 0 AM BARKING MACHINE FEEDER XR CHEST PA OR AP 1 VW Routine 06/17/2024 9:08 AM BARKING MACHINE FEEDER T4 FREE Routine 06/17/2024 6:42 AM BARKING MACHINE FEEDER TSH REFLEXIVE Routine 06/17/2024 6:42 AM BARKING MACHINE FEEDER MAGNESIUM LEVEL Routine 06/17/2024 6:42 AM BARKING MACHINE FEEDER BRAIN NATRIURETIC PEPTIDE, BNP OR PROBNP Routine 06/17/2024 6:42 AM BARKING MACHINE FEEDER BASIC METABOLIC PANEL Routine 06/17/2024 6:42 AM BARKING MACHINE FEEDER BASIC METABOLIC PANEL Routine 06/14/2024 5:20 AM BARKING MACHINE FEEDER BASIC METABOLIC PANEL Routine 06/13/2024 6:02 AM BARKING MACHINE FEEDER VANCOMYCIN LEVEL TROUGH Timed Study 06/12/2024 4:50 PM BARKING MACHINE FEEDER BASIC METABOLIC PANEL Routine 06/12/2024 2:06 AM BARKING MACHINE FEEDER BASIC METABOLIC PANEL Routine 06/11/2024 3:26 AM BARKING MACHINE FEEDER BASIC METABOLIC PANEL Routine 06/10/2024 6:46 AM BARKING MACHINE FEEDER CBC WITH DIFFERENTIAL Routine 06/10/2024 6:46 AM BARKING MACHINE FEEDER URINALYSIS W/REFLEX MICROSCOPIC Routine 06/10/2024 6:14 AM BARKING MACHINE FEEDER C-REACTIVE PROTEIN Routine 06/09/2024 6: 59 AM BARKING MACHINE FEEDER MAGNESIUM LEVEL Routine 06/09/2024 6:59 AM BARKING MACHINE FEEDER BASIC METABOLIC PANEL Routine 06/09/2024 6:59 AM BARKING MACHINE FEEDER CBC WITH DIFFERENTIAL Routine 06/09/2024 6:59 AM BARKING MACHINE FEEDER BLOOD CULTURE Routine 06/08/2024 1:51 PM BARKING MACHINE FEEDER BLOOD CULTURE Routine 06/08/2024 1:51 PM BARKING MACHINE FEEDER BLOOD CULTURE Routine 06/08/2024 1:45 PM BARKING MACHINE FEEDER BLOOD CULTURE Routine 06/08/2024 1:[address] THORACIC LUMBAR WO CONTRAST Routine 06/08/2024 1:15 PM BARKING MACHINE FEEDER MAGNESIUM LEVEL Routine 06/08/2024 9:01 AM BARKING MACHINE FEEDER BASIC METABOLIC PANEL Routine 06/08/2024 9:01 AM BARKING MACHINE FEEDER POC GLUCOSE Routine 06/07/2024 11:54 AM BARKING MACHINE FEEDER COMPREHENSIVE METABOLIC PANEL Routine 06/07/2024 9:57 AM BARKING MACHINE FEEDER CBC WITH DIFFERENTIAL Routine 06/07/2024 9:57 AM BARKING MACHINE FEEDER POC GLUCOSE Routine 06/07/2024 5:47 AM BARKING MACHINE FEEDER POC GLUCOSE Routine 06/06/2024 11:40 PM BARKING MACHINE FEEDER POC LACTIC ACID Stat 06/06/2024 6:09 PM BARKING MACHINE FEEDER SEDIMENTATION RATE Stat 06/06/2024 6: 05 PM BARKING MACHINE FEEDER C-REACTIVE PROTEIN Stat 06/06/2024 6: 05 PM BARKING MACHINE FEEDER COMPREHENSIVE METABOLIC PANEL Stat 06/06/2024 6:05 PM BARKING MACHINE FEEDER CBC WITH DIFFERENTIAL Stat 06/06/2024 6:05 PM BARKING MACHINE FEEDER BLOOD CULTURE PATHOGEN PCR PANEL Routine 06/06/2024 6:05 PM BARKING MACHINE FEEDER BLOOD CULTURE Stat 06/06/2024 6:05 PM BARKING MACHINE FEEDER BLOOD CULTURE Stat 06/06/2024 6:05 PM BARKING MACHINE FEEDER BLOOD CULTURE Stat 06/06/2024 6:05 PM BARKING MACHINE FEEDER BLOOD CULTURE Stat 06/06/2024 6:05 PM BARKING MACHINE FEEDER HEMOGLOBIN A1C Routine 02/13/2024 2:44 AM CDT from Last 3 Months or Most Recently Relevant to Health Maintenance Results * (ABNORMAL) CBC WITH DIFFERENTIAL (06/24/2024 2:06 AM BARKING MACHINE FEEDER) Only the most recent of10 resultswithin the time period is included. [facility] WBC 4.1 4.0 - 9.8 K/uL 06/24/2024 2:38 AM BARKING MACHINE FEEDER [facility] RBC 4.45 3.90 - 4.90 M/uL 06/24/2024 2:38 AM BARKING MACHINE FEED[facility] HEMOGLOBIN 12.1 11.8 - 14.8 g/dL 06/24/2024 2:38 AM BARKING MACHINE FEEDER [employer] [facility] HEMATOCRIT 37.9 35.5 - 44.0 % 06/24/2024 2:38 AM BARKING MACHINE FEEDER [facility] [employer] MCV 85.2 82.0 - 99.0 fL 06/24/2024 2:38 AM BARKING MACHINE FEEDER [employer] MCH 27.2 27.2 - 32.6 pg 06/24/2024 2:38 AM BARKING MACHINE FEEDER [employer] MCHC 31.9 31.5 - 35.5 g/dL 06/24/2024 2:38 AM BARKING MACHINE FEEDER [employer] RDW 17.5(H) 11.5 - 14.5 % 06/24/2024 2:38 AM BARKING MACHINE FEEDER [facility] [employer] RDW-STDEV 54.0(H) 37.1 - 48.7 fL 06/24/2024 2:38 AM BARKING MACHINE FEEDER [facility] [place] PLATELETS 167 140 - 350 K/uL 06/24/2024 2:38 AM BARKING MACHINE FEEDER [employer] [place] MPV 10.9 9.3 - 12.4 fL 06/24/2024 2:38 AM BARKING MACHINE FEEDER [employer] NEUTROPHILS 71 % 06/24/2024 2:38 AM BARKING MACHINE FEEDER [facility] [employer] LYMPHOCYTES 22 % 06/24/2024 2:38 AM BARKING MACHINE FEEDER [facility] [employer] MONOCYTES 5 % 06/24/2024 2:38 AM BARKING MACHINE FEEDER [facility] [employer] EOSINOPHILS 0 % 06/24/2024 2:38 AM BARKING MACHINE FEEDER [facility] [employer] BASOPHILS 1 % 06/24/2024 2:38 AM BARKING MACHINE FEEDER [facility] [employer] IMMATURE GRANULOCYTES 1 % 06/24/2024 2:38 AM BARKING MACHINE FEEDER [employer] [place] Comment:IG (Immature Granulo cyte) count includes Metamyelocytes, Myelocytes, and Promyelocytes NEUTROPHIL ABSOLUTE 2.91 1.90 - 7.00 K/uL 06/24/2024 2:38 AM BARKING MACHINE FEEDER [facility] LYMPHOCYTE ABSOLUTE 0.89 0.70 - 4.50 K/uL 06/24/2024 2:38 AM [facility] [employer] [facility] MONOCYTE ABSOLUTE 0.21 0.10 - 1.30 K/uL 06/24/2024 2:38 AM [facility] [employer] [facility] EOSINOPHIL ABSOLUTE 0.01 0.00 - 0.70 K/uL 06/24/2024 2:38 AM [facility] [employer] [facility] BASOPHILS ABSOLUTE 0.02 0.00 - 0.20 K/uL 06/24/2024 2:38 AM [facility] [facility] IMMATURE GRANULOCYTES ABSOLUTE 0.05(H) 0.00 - 0.03 K/uL 06/24/2024 2:38 AM [facility] [employer] [facility] [place] Blood Venipuncture / Unknown 06/24/2024 2:06 AM BARKING MACHINE FEEDER 06/24/2024 2:25 AM BARKING MACHINE FEEDER Jose Enrique Elizondo DO HEMATOLOGY ORDERABLES Final R esult [employer] [facility] [id number] [address] [place] [address] [id number] * (ABNORMAL) BASIC METABOLIC PANEL (06/24/2024 2:06 AM BARKING MACHINE FEEDER) Only the most recent of14 resultswithin the time period is included. SODIUM 134(L) 136 - 145 mmol/L 06/24/2024 3:10 AM [facility] [employer] [facility]. [facility] POTASSIUM 4.1 3.5 - 5.0 mmol/L 06/24/2024 3:10 AM [facility] [employer] [facility] CHLORIDE 98 98 - 107 mmol/L 06/24/2024 3:10 AM [facility] [employer] [facility] [place] CO2 27 22 - 29 mmol/L 06/24/2024 3:10 AM [facility] [employer] [facility]. [facility] CALCIUM 9.2 8.6 - 10.2 mg/dL 06/24/2024 3:10 AM [facility] [employer] [facility] [place] BUN 10 8 - 23 mg/dL 06/24/2024 3:10 AM [facility] CREATININE 0.74 0.51 - 0.95 mg/dL 06/24/2024 3:10 AM [facility] GLUCOSE 119(H) 74 - 99 mg/dL 06/24/2024 3:10 AM [facility] GFR >60 >=60 mL/min/1.7 3 sq meter 06/24/2024 3:10 AM [facility] Comment:eGFR calculated with 2020 CKD-EPI equation. Vegetarian diet, extremely high or low muscle mass, and may affect results. Cystatin C with Glomerular Filtration Rate is a suitable alternative for these patients. ANION GAP 9 8 - 16 mmol/L 06/24/2024 3:10 AM [facility] Blood Venipuncture / Unknown 06/24/2024 2:06 AM BARKING MACHINE FEEDER 06/24/2024 2:25 AM BARKING MACHINE FEEDER Jose Enrique Elizondo DO CHEMISTRY ORDERABLES Final Re sult [facility] CLIA# [id number] [address] [place] [address] * EKG 12-LEAD (06/23/2024 11:47 AM BARKING MACHINE FEEDER) Only the most recent of2 resultswithin the time period is included. 06/23/2024 11:4 7 AM BARKING MACHINE FEEDER Narrative INTERFACE SYSTEM - 06/23/2024 6:56 PM [facility] [address] [place] [address] Test Date: 2024-06-23 Pat Name: ALISHA MONTENEGRO Department: 100 Room: [facility] 1 Gender: F Web Content Writer: Eriberto : 1960 Requested By: VICENTE CHRISTIANSON Order Number: [id number] Reading MD: Sotero Foster Measurements Intervals [place] Rate: 58 P: 33 SD: 176 QRS: -34 QRSD: 154 T: 68 QT: 471 QTc: 463 Interpretive Statements SINUS BRADYCARDIA LEFT AXIS DEVIATION LEFT BUNDLE BRANCH BLOCK Electronically Signed On 06-23-2024 18:56:00 BARKING MACHINE FEEDER by Sotero Foster Procedure Note Sotero Foster MD - 06/23/2024 [facility] [address] , [place] [address] Test Date: 2024-06-23 Pat Name: ALISHA MONTENEGRO Department: 100 Room: [facility] Gender: F Web Content Writer: Eriberto : 1960 Requested By: VICENTE CHRISTIANSON Order Number: [id number] Reading MD: Sotero Foster Measurements Intervals [place] Rate: 58 P: 33 SD: 176 QRS: -34 QRSD: 154 T: 68 QT: 471 QTc: 463 Interpretive Statements SINUS BRADYCARDIA LEFT AXIS DEVIATION LEFT BUNDLE BRANCH BLOCK Electronically Signed On 06-23-2024 18:56:00 BARKING MACHINE FEEDER by Sotero Foster us Jose Enrique Elizondo DO ECG ORDERABLES Final Result Performing Organization Address City/State/[facility] Co de Phone Number INTERFACE SYSTEM Refer to clinic/hospital department * XR CHEST PA OR AP 1 VW (06/22/2024 12:14 PM BARKING MACHINE FEEDER) Only the most recent of3 resultswithin the time period is included. Anatomical Region Laterality Modality Chest Computed Radiogr aphy 06/22/2024 12:1 4 PM BARKING MACHINE FEEDER Impressions 06/22/2024 1:02 PM BARKING MACHINE FEEDER IMPRESSION: Minimal increased patchy opacity right lung base INCIDENTAL FINDINGS: None. DICTATION LOCATION: Location 4 Narrative 06/22/2024 1:02 PM BARKING MACHINE FEEDER Single view chest INDICATION: Hypoxia. Single view chest compared to 06/19/2024 study. The heart and mediastinum are unchanged. The interstitial opacity has similar pattern to last study. Minimal increased patchy opacity in the right lung base. The left base is clear. Procedure Note Willie Mccollum MD - 06/22/2024 Single view chest INDICATION: Hypoxia. Single view chest compared to 06/19/2024 study. The heart and mediastinum are unchanged. The interstitial opacity has similar pattern to last study. Minimal increased patchy opacity in the right lung base. The left base is clear. IMPRESSION: Minimal increased patchy opacity right lung base INCIDENTAL FINDINGS: None. DICTATION LOCATION: Location 4 Jose Enrique Elizondo DO DIAGNOSTIC IMAGING ORDERABLES Final Result * (ABNORMAL) RESPIRATORY PATHOGEN PCR PANEL (06/20/2024 11:34 AM BARKING MACHINE FEEDER) Pathologist [facility] COVID-19 PCR DETECTED( A) Not Detected 06/20/2024 12:48 PM BARKING MACHINE FEEDER [facility] Upper Respiratory ENTIRE NASOPHARYNX / Unknown Collection / Unknown 06/20/2024 11:34 AM BARKING MACHINE FEEDER 06/20/2024 11:42 AM BARKING MACHINE FEEDER Narrative [facility] - 06/20/2024 12:48 PM BARKING MACHINE FEEDER Results called to Miranda Marr RN on 06/20/2024 at 12:47 PM and read back verified. The Film Array Respiratory Panel (RP2.1) is a multiplex nucleic acid detection test for 22 targets. Viruses: Adenovirus Coronavirus HKU1, NL63, 229E, and OC43 COVID-19/Severe Acute Respiratory Syndrome Coronavirus 2 Influenza A with the following subtypes: H1, H1-2009, and H3 Influenza B Human Metapneumovirus Parainfluenza virus 1, 2, 3, and 4 Respiratory Syncytial virus (RSV) Rhinovirus/Enterovirus (cannot differentiate due to genetic similarities) Bacteria: Bordetella pertussis Bordetella parapertussis Chlamydophila pneumoniae Mycoplasma pneumoniae Jose Enrique Elizondo DO MICROBIOLOGY - GENERAL ORDERA BLES Final Result [facility]# [id number] [address] [facility] [place] [id number] * (ABNORMAL) VITAMIN B12 AND FOLATE (06/20/2024 4:34 AM BARKING MACHINE FEEDER) Pathologist [facility] VITAMIN B12 1,833(H) 232 - 1,245 pg/mL 06/20/2024 6:04 AM BARKING MACHINE FEEDER [facility] Comment:It has been reported that between 5 to 10% of patients with values between 200 and 400 pg/mL may experience neuropsychiatric and hematologic abnormalities due to occult B12 deficiency. Less than 1% of patients with values above 400 pg/mL will have symptoms. FOLATE, SERUM 3.9(L) >4.5 ng/mL 06/20/2024 6:04 AM [facility] [employer] [facility] Blood Venipuncture / Unknown 06/20/2024 4:34 AM BARKING MACHINE FEEDER 06/20/2024 5:05 AM BARKING MACHINE FEEDER Jose Enrique Elizondo DO CHEMISTRY ORDERABLES Final Re sult [facility] CLIA# [id number] [address] [facility] [place] [id number] * (ABNORMAL) BLOOD GAS VENOUS (06/19/2024 11:37 AM BARKING MACHINE FEEDER) Only the most recent of2 resultswithin the time period is included. PH, VENOUS 7.39 7.32 - 7.43 06/19/2024 11:56 AM [facility] [employer] [facility] PCO2 VENOUS 56(H) 38 - 50 mm Hg 06/19/2024 11:56 AM [facility] PO2 VENOUS 45(H) 25 - 40 mm Hg 06/19/2024 11:56 AM [facility] [employer] [facility] HCO3 VENOUS 34(H) 22 - 29 mmol/L 11:56 AM [facility] [employer] [facility] BASE EXCESS VENOUS 7.6 Reference Range Not Established mmol/L 06/19/2024 11:56 AM [facility] [employer] [facility] HEMOGLOBIN VENOUS 11.0 No Ref Range Estab g/dL 06/19/2024 11:56 AM [facility] [employer] [facility] O2 SAT EST VENOUS 75(H) 40 - 70 % 06/19/2024 11:56 AM [facility] [employer] [facility] Blood, venous Venipuncture / Unknown 06/19/2024 11:37 AM [employer] 06/19/2024 11:46 AM [employer] Jose Enrique Elizondo DO ABG ORDERABLES Final Result [facility]# [id number] [address] [place] [address] * XR ABDOMEN 1 VW (06/19/2024 10:38 AM BARKING MACHINE FEEDER) Anatomical Region Laterality Modality Abdomen Computed Radiogr aphy 06/19/2024 10:3 8 AM BARKING MACHINE FEEDER Impressions 06/19/2024 3:45 PM BARKING MACHINE FEEDER IMPRESSION: Nonobstructive bowel gas pattern. Moderate amount of retained formed stool. DICTATION LOCATION: Location [address] [place] [address] Narrative 06/19/2024 3:45 PM BARKING MACHINE FEEDER XR ABDOMEN 1 VW DATE: 06/19/2024 10:38 AM HISTORY: Constipation; Wound of left lower extremity, initial encounter; Generalized weakness; Fall, initial encounter COMPARISON: Outside CT abdomen and pelvis 02/11/2024 FINDINGS: BOWEL: Scattered bowel gas in a nonobstructive pattern. There is a moderate amount of retained formed stool. No rectal stool ball to suggest fecal impaction. SOFT TISSUE: Cholecystectomy clips. No obvious nephrolithiasis, though the kidneys are largely obscured by stool and bowel gas. OTHER: No other significant findings. Procedure Note Addison Vargas MD - 06/19/2024 XR ABDOMEN 1 VW DATE: 06/19/2024 10:38 AM HISTORY: Constipation; Wound of left lower extremity, initial encounter; Generalized weakness; Fall, initial encounter COMPARISON: Outside CT abdomen and pelvis 02/11/2024 FINDINGS: BOWEL: Scattered bowel gas in a nonobstructive pattern. There is a moderate amount of retained formed stool. No rectal stool ball to suggest fecal impaction. SOFT TISSUE: Cholecystectomy clips. No obvious nephrolithiasis, though the kidneys are largely obscured by stool and bowel gas. OTHER: No other significant findings. IMPRESSION: Nonobstructive bowel gas pattern. Moderate amount of retained formed stool. DICTATION LOCATION: Location [address] [place] [address] Jose Enrique Elizondo DO DIAGNOSTIC IMAGING ORDERABLES Final Result * PERIPHERAL BLOOD SMEAR PATHOLOGY INTERP (06/19/2024 5:02 AM BARKING MACHINE FEEDER) PERIPHERAL BLOOD SMEAR INTERP See Pathology Report to Follow 06/19/2024 4:23 PM BARKING MACHINE FEEDER [facility] Blood Venipuncture / Unknown 06/19/2024 5:02 AM BARKING MACHINE FEEDER 06/19/2024 7:10 AM BARKING MACHINE FEEDER us Jose Enrique Elizondo DO HEMATOLOGY ORDERABLES Final R esult [facility] [id number] [address] [facility] [place] [address] * PATHOLOGY (06/19/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 Surgical Pathology Report Case: [id number] Authorizing Provider: Jose Enrique Elizondo DO Collected: 06/19/2024 05:02 AM Ordering Location: [facility] Received: 06/22/2024 07:30 AM Medicine 6B Pathologist: Karen Silvestre MD Specimen: Peripheral Blood Smear 12:18 PM [facility] FINAL DIAGNOSIS Peripheral blood, morphologic review: - Pancytopenia with absolute lymphocytopenia - Normocytic anemia with no overt features of hemolysis - No circulating blasts or overt features of dyspoiesis 12:18 PM BARKING MACHINE FEEDER [facility] at 1218 BARKING MACHINE FEEDER DIAGNOSIS COMMENT Pancytopenia can be seen in a variety of reactive settings, such as infection, medication, toxin exposure, connective tissue disease, nutritional deficiency, endocrinopathy, et cetera. If reactive causes have been excluded, bone marrow evaluation may be helpful in evaluating for the possibility of a primary disorder of the bone marrow. Lymphocytopenia can be seen in the context of steroid therapy, strenuous exercise, morphine administration, human immunodeficiency virus infection, and genetic abnormalities. Correlation with clinical findings is suggested. 12:18 PM [facility] MICROSCOPIC DESCRIPTION The slides are labeled [id number] and Alisha Montenegro. Review of the peripheral blood smear shows findings consistent with the CBC indices and differential. There is a mild normochromic normocytic anemia with mild anisocytosis and no significant polychromasia. Schistocytes are not readily identified. Leukocytes are decreased with absolute lymphocytopenia. Lymphocytes are comprised predominately of small, mature forms with occasional reactive forms. Neutrophils show normal nuclear segmentation and cytoplasmic granularity. No circulating blasts or overt features of dyspoiesis is appreciated. Platelets are decreased with unremarkable morphology. 12:18 PM BARKING MACHINE FEEDER [facility] CLINICAL INFORMATION Chronic pancytopenia 12:18 PM BARKING MACHINE FEEDER [facility] COMMENT Special stain, immunohistochemical, and/or in situ hybridization results are interpreted with controls that demonstrate appropriate staining reactions. Note on use of immunohistochemistry reagents and in situ hybridization probes: These tests were developed and their performance characteristics determined by [facility], Department of Laboratory Medicine. It has not been cleared or approved by the U.S. Food and Drug Administration. The FDA has determined that such clearance or approval is not necessary. The test is used for clinical purposes. It should not be regarded as investigational or for research. This laboratory is certified to perform high complexity testing. Frozen section/operating room consultation, gross examination and dissection, and case sign out may have been performed in part or completely in the following laboratories: [facility], CLIA #[id number] [address] [place] [address] [facility] CLIA #[id number] [address] [place] [address] [facility], CLIA #[id number] [address] [place] [address] 12:18 PM BARKING MACHINE FEEDER [facility] Tissue (Peripheral Blood Smear) 06/19/2024 5:02 AM BARKING MACHINE FEEDER 06/22/2024 7:30 AM BARKING MACHINE FEEDER Jose Enrique Elizondo DO PATHOLOGY/CYTOLOGY ORDERABLES Final Result [facility] CLIA# [id number] [address] [place] [address] * (ABNORMAL) IRON, TIBC, AND PERCENT SATURATION (06/19/2024 5:02 AM BARKING MACHINE FEEDER) IRON 28(L) 37 - 145 ug/dL 06/19/2024 3:28 PM [facility] TIBC 193(L) 250 - 450 ug/dL 06/19/2024 3:28 PM [facility] IRON % SATURATION 15 15 - 50 % 06/19/2024 3:28 PM [facility] TRANSFERRIN 152(L) 200 - 360 mg/dL 06/19/2024 3:28 PM [facility] Blood Venipuncture / Unknown 06/19/2024 5:02 AM BARKING MACHINE FEEDER 06/19/2024 7:10 AM BARKING MACHINE FEEDER Jose Enrique Elizondo DO CHEMISTRY ORDERABLES Final Re sult Performing Organization Address [facility]/ZIP Co de Phone Number [facility] CLIA# [id number] [address] [place] [address] * (ABNORMAL) FERRITIN (06/19/2024 5:02 AM BARKING MACHINE FEEDER) Pathologist [facility] FERRITIN 313.0(H) 13.0 - 150.0 ng/mL 06/19/2024 3:28 PM [facility] Blood Venipuncture / Unknown 06/19/2024 5:02 AM BARKING MACHINE FEEDER 06/19/2024 7:10 AM BARKING MACHINE FEEDER Jose Enrique Elizondo DO CHEMISTRY ORDERABLES Final Re sult [facility] CLIA# [id number] [address] [place] [address] * (ABNORMAL) TSH REFLEXIVE (06/17/2024 6:42 AM BARKING MACHINE FEEDER) TSH 22.00(H) 0.27 - 4.20 uIU/mL 06/17/2024 11:50 AM BARKING MACHINE FEEDER [facility] [employer] [facility] Blood Venipuncture / Unknown 06/17/2024 6:42 AM BARKING MACHINE FEEDER 06/17/2024 7:24 AM BARKING MACHINE FEEDER Jose Enrique Elizondo DO CHEMISTRY ORDERABLES Final Re sult Performing Organization Address City/[facility]/ZIP Co de Phone Number [facility] CLIA# [id number] [address] [place] [address] * T4 FREE (06/17/2024 6:42 AM BARKING MACHINE FEEDER) T4 FREE 0.92 0.90 - 1.70 ng/dL 06/17/2024 12:09 PM [facility] [employer] [facility] Blood Venipuncture / Unknown 06/17/2024 6:42 AM BARKING MACHINE FEEDER 06/17/2024 7:24 AM BARKING MACHINE FEEDER Jose Enrique Elizondo DO CHEMISTRY ORDERABLES Final Re sult Performing Organization Address [facility] Co de Phone Number [facility] [employer] [facility] CLIA# [id number] [address] [place] [address] * (ABNORMAL) BRAIN NATRIURETIC PEPTIDE, BNP OR PROBNP (06/17/2024 6:42 AM BARKING MACHINE FEEDER) PROBNP, N TERMINAL 1,072(H) <124 pg/mL 06/17/2024 9:02 AM [facility] [employer] [facility] Comment: INTERPRETIVE COMMENT based on diagnosis: Diagnostic NT pro-BNP cutoffs for Heart Failure in the absence of renal failure is suggested for the following ranges <75 years: <125 pg/mL >=75 years: <450 pg/mL Exclusionary rule out cut-point for Acute Decompensated Heart Failure(ADHF) All ages: <300 pg/mL Diagnostic NT pro-BNP cutoffs for Acute Decompensated Heart Failure(ADHF) in the absence of renal failure is suggested for the following ages <50 years: > 450 pg/mL 50-75 years: > 900 pg/mL >75 years: >1800 pg/mL Blood Venipuncture / Unknown 06/17/2024 6:42 AM BARKING MACHINE FEEDER 06/17/2024 7:24 AM BARKING MACHINE FEEDER Jose Enrique Elizondo DO CHEMISTRY ORDERABLES Final Re sult Performing Organization Address [facility]/ZIP Co de Phone Number [facility] CLIA# [id number] [address] [place] [address] * MAGNESIUM LEVEL (06/17/2024 6:42 AM BARKING MACHINE FEEDER) Only the most recent of3 resultswithin the time period is included. MAGNESIUM 1.8 1.6 - 2.4 mg/dL 06/17/2024 9:13 AM BARKING MACHINE FEEDER [facility] Blood Venipuncture / Unknown 06/17/2024 6:42 AM BARKING MACHINE FEEDER 06/17/2024 7:24 AM BARKING MACHINE FEEDER Jose Enrique Elizondo DO CHEMISTRY ORDERABLES Final Re sult Performing Organization Address [facility] Co de Phone Number [facility] [employer] [facility] CLIA# [id number] [address] [place] [address] * (ABNORMAL) VANCOMYCIN LEVEL TROUGH (06/12/2024 4:50 PM BARKING MACHINE FEEDER) VANCOMYCIN, TROUGH 5.6(L) 10.0 - 17.0 ug/mL 06/12/2024 6:24 PM BARKING MACHINE FEEDER [facility] Blood Venipuncture / Unknown 06/12/2024 4:50 PM BARKING MACHINE FEEDER 06/12/2024 5:32 PM BARKING MACHINE FEEDER Mikayla Lopez DO CHEMISTRY ORDERABLES F inal Result Performing Organization Address [facility]/ZIP Co de Phone Number [facility] [employer] [facility] CLIA# [id number] [address] [place] [address] * (ABNORMAL) URINALYSIS WITH REFLEX MICROSCOPIC (06/10/2024 6:14 AM BARKING MACHINE FEEDER) COLOR UA Yellow Pale to Dark Yellow 06/10/2024 7:22 AM [facility] [employer] [facility] - [facility] CLARITY UA Clear Clear 06/10/2024 7:22 AM [facility] [employer] [facility] SPECIFIC GRAVITY UA 1.012 1.003 - 1.035 06/10/2024 7:22 AM [facility] [employer] [facility] PH UA 8.0 5.0 - 8.0 06/10/2024 7:22 AM [facility] [facility] LEUKOCYTE ESTERASE UA Negative Negative 06/10/2024 7:22 AM [facility] [employer] [facility] NITRITE UA Negative Negative 06/10/2024 7:22 AM [facility] [employer] [facility] PROTEIN UA Negative Negative 06/10/2024 7:22 AM [facility] [facility] GLUCOSE UA Negative Negative 06/10/2024 7:22 AM [facility] [employer] [facility] KETONES UA Negative Negative 06/10/2024 7:22 AM [facility] [employer] [facility] UROBILINOGEN UA Normal <2.0 mg/dL 7:22 AM [facility] [employer] [facility] BILIRUBIN UA Negative Negative 06/10/2024 7:22 AM [facility] [employer] [facility] BLOOD UA 1+(A) Negative 06/10/2024 7:22 AM [facility] [employer] [facility]OR[facility] WBC UA 0-2 0 - 2 /hpf 06/10/2024 7:22 AM [facility] [facility] RBC UA 0-2 0 - 2 /hpf 06/10/2024 7:22 AM [facility] [facility] BACTERIA UA Negative Negative /hpf 06/10/2024 7:22 AM [facility] [employer] [facility] Urine URINE SPECIMEN OBTAINED BY CLEAN CATCH PROCEDURE / Unknown Collection / Unknown 06/10/2024 6:14 AM BARKING MACHINE FEEDER 06/10/2024 7:02 AM BARKING MACHINE FEEDER Oc Morrison MD URINE ORDERABLES Final Result Performing Organization Address City/[facility] Co de Phone Number [facility]# [id number] [address] [place] [address] * (ABNORMAL) C-REACTIVE PROTEIN (06/09/2024 6:59 AM BARKING MACHINE FEEDER) Only the most recent of2 resultswithin the time period is included. CRP 50.3(H) <5.0 mg/L 06/09/2024 5:02 PM BARKING MACHINE FEEDER [facility] Blood Venipuncture / Unknown 06/09/2024 6:59 AM BARKING MACHINE FEEDER 06/09/2024 9:09 AM BARKING MACHINE FEEDER us Abraham Roach MD CHEMISTRY ORDERABLES Final Resul t Performing Organization Address [facility] de Phone Number [facility]# [id number] [address] [place] [address] * BLOOD CULTURE (06/08/2024 1:51 PM BARKING MACHINE FEEDER) Only the most recent of4 resultswithin the time period is included. BLOOD CULTURE No growth 06/13/2024 3:10 PM BARKING MACHINE FEEDER [facility] Blood (Peripheral) Venipuncture / Unknown 06/08/2024 1:51 PM BARKING MACHINE FEEDER 06/08/2024 2:17 PM BARKING MACHINE FEEDER us Alireza Giang MD MICROBIOLOGY - GENERAL ORDERABLES Final Result Performing Organization Address [facility] Co de Phone Number [facility]# [id number] [address] [place] [address] * CT THORACIC LUMBAR WO CONTRAST (06/08/2024 1:15 PM BARKING MACHINE FEEDER) Anatomical Region Laterality Modality Spine Computed Tomogra phy 06/08/2024 1:16 PM BARKING MACHINE FEEDER Impressions 06/08/2024 1:46 PM BARKING MACHINE FEEDER IMPRESSION: 1. Moderate L1 compression fracture with interval height loss since MRI 02/13/2024 with resultant increase retropulsion. 2. Multilevel degenerative changes without suspicious osseous lesion or spondylolisthesis. 3. Small bilateral pleural effusions. 4. Small sliding-type hiatal hernia with wall thickening of the distal esophagus. Correlation with direct inspection would be helpful to evaluate for reflux disease or underlying mass. DICTATION LOCATION: Location 1 [facility] 06/08/2024 1:46 [address]ARKING MACHINE [address]EDER CT THORACIC LUMBAR WO CONTRAST DATE: 06/08/2024 1:15 PM CLINICAL INDICATION: Compression fracture, thoracic. COMPARISON: MR lumbar spine with contrast 02/13/2024. MR thoracic spine without contrast 02/12/2024. TECHNIQUE: Multiplanar reconstructed CT of the thoracic and lumbar spine was performed generated from source data without intravenous contrast administration. The examination was performed with the adjustment of mA according to the patient size and/or the use of Iterative Reconstruction Technique. FINDINGS: T-spine: Multilevel degenerative changes are identified without acute fracture or traumatic malalignment. No large disc herniation, high-grade spinal canal or neuroforaminal stenosis is identified. Striated lucency of T9 likely intraosseous hemangioma. L-spine: L1 compression fracture is redemonstrated with interval height loss since MRI 02/13/2024 measuring a short as 1.2 cm in height (previously 1.7 cm on MRI 02/13/2024). There is increased retropulsion now measuring up to 5 mm (previously 1-2 mm). No spondylolisthesis. There is at least mild spinal canal narrowing secondary to L1 retropulsion. The bony spinal canal is otherwise patent. No high-grade osseous neural foraminal stenosis is identified. The visualized upper sacrum appears intact. Other: Mild bilateral pleural effusions. Moderate scattered atherosclerosis of the aorta and branch vessels. Small sliding-type hiatal hernia is suspected with mild thickening of the distal esophagus. Correlation with direct inspection would be helpful to evaluate for reflux disease or underlying mass. Please refer to concurrent chest abdomen and pelvis CT report for evaluation of the intrathoracic and abdominopelvic structures. Procedure Note Ulises Cardenas DO - 06/08/2024 CT THORACIC LUMBAR WO CONTRAST DATE: 06/08/2024 1:15 PM CLINICAL INDICATION: Compression fracture, thoracic. COMPARISON: MR lumbar spine with contrast 02/13/2024. MR thoracic spine without contrast 02/12/2024. TECHNIQUE: Multiplanar reconstructed CT of the thoracic and lumbar spine was performed generated from source data without intravenous contrast administration. The examination was performed with the adjustment of mA according to the patient size and/or the use of Iterative Reconstruction Technique. FINDINGS: T-spine: Multilevel degenerative changes are identified without acute fracture or traumatic malalignment. No large disc herniation, high-grade spinal canal or neuroforaminal stenosis is identified. Striated lucency of T9 likely intraosseous hemangioma. L-spine: L1 compression fracture is redemonstrated with interval height loss since MRI 02/13/2024 measuring a short as 1.2 cm in height (previously 1.7 cm on MRI 02/13/2024). There is increased retropulsion now measuring up to 5 mm (previously 1-2 mm). No spondylolisthesis. There is at least mild spinal canal narrowing secondary to L1 retropulsion. The bony spinal canal is otherwise patent. No high-grade osseous neural foraminal stenosis is identified. The visualized upper sacrum appears intact. Other: Mild bilateral pleural effusions. Moderate scattered atherosclerosis of the aorta and branch vessels. Small sliding-type hiatal hernia is suspected with mild thickening of the distal esophagus. Correlation with direct inspection would be helpful to evaluate for reflux disease or underlying mass. Please refer to concurrent chest abdomen and pelvis CT report for evaluation of the intrathoracic and abdominopelvic structures. IMPRESSION: 1. Moderate L1 compression fracture with interval height loss since MRI 02/13/2024 with resultant increase retropulsion. 2. Multilevel degenerative changes without suspicious osseous lesion or spondylolisthesis. 3. Small bilateral pleural effusions. 4. Small sliding-type hiatal hernia with wall thickening of the distal esophagus. Correlation with direct inspection would be helpful to evaluate for reflux disease or underlying mass. DICTATION LOCATION: Location 1 - [facility] us Alireza Giang MD CT ORDERABLES Final Result * (ABNORMAL) POC GLUCOSE (06/07/2024 11:54 AM BARKING MACHINE FEEDER) Only the most recent of3 resultswithin the time period is included. GLUCOSE POC 110(H) 74 - 99 mg/dL 06/07/2024 11:54 AM [facility] [employer] [facility] SPECIMEN SOURCE, GLUCOSE POC Whole Blood 06/07/2024 11:54 AM [facility] [employer] [facility] COMMENT, GLU POC Notified RN/MD 06/07/2024 11:54 AM [facility] [employer] [facility] Blood, whole 06/07/2024 11:5 4 AM BARKING MACHINE FEEDER 06/07/2024 12:04 PM BARKING MACHINE FEEDER Alireza Giang MD POINT OF CARE TESTING Final Result [employer] [facility]# [id number] [address] [facility] [address] [address] * (ABNORMAL) COMPREHENSIVE METABOLIC PANEL (06/07/2024 9:57 AM BARKING MACHINE FEEDER) Only the most recent of2 resultswithin the time period is included. SODIUM 140 136 - 145 mmol/L 06/07/2024 11:53 AM [facility] [employer] SERVICES [facility] POTASSIUM 2.8(L) 3.5 - 5.0 mmol/L 06/07/2024 11:53 AM [facility] [employer] [facility] CHLORIDE 102 98 - 107 mmol/L 06/07/2024 11:53 AM [facility] [employer] [facility] CO2 33(H) 22 - 29 mmol/L 06/07/2024 11:53 AM [facility] [employer] [facility] CALCIUM 8.0(L) 8.6 - 10.2 mg/dL 06/07/2024 11:53 AM [facility] [employer] [facility] BUN 14 8 - 23 mg/dL 06/07/2024 11:53 AM [facility] [employer] [facility] CREATININE 0.77 0.51 - 0.95 mg/dL 06/07/2024 11:53 AM [facility] [employer] [facility] GLUCOSE 108(H) 74 - 99 mg/dL 06/07/2024 11:53 AM [facility] [employer] [facility] TOTAL PROTEIN 5.2(L) 6.7 - 8.6 g/dL 06/07/2024 11:53 AM [facility] ALBUMIN 2.6(L) 3.5 - 5.2 g/dL 06/07/2024 11:53 AM [facility] BILIRUBIN TOTAL 0.4 0.2 - 1.1 mg/dL 06/07/2024 11:53 AM [facility] ALKALINE PHOSPHATASE 71 35 - 104 U/L 06/07/2024 11:53 AM [facility] AST 19 <33 U/L 06/07/2024 11:53 AM [facility] ALT <5 <34 U/L 06/07/2024 11:53 AM [facility] GFR >60 >=60 mL/min/1.7 3 sq meter 06/07/2024 11:53 AM [facility] Comment:eGFR calculated with 2020 CKD-EPI equation. Vegetarian diet, extremely high or low muscle mass, and may affect results. Cystatin C with Glomerular Filtration Rate is a suitable alternative for these patients. ANION GAP 5(L) 8 - 16 mmol/L 06/07/2024 11:53 AM [facility] Blood Venipuncture / Unknown 06/07/2024 9:57 AM BARKING MACHINE FEEDER 06/07/2024 10:43 AM [facility] - 06/07/2024 11:53 AM BARKING MACHINE FEEDER Samples containing indocyanine green cause interferences on Total and/or Direct Bilirubin and must not be measured. us Anderson Greco MD CHEMISTRY ORDERABLES Final Resul t [facility] [id number] 0 [facility] [address] [address] * POC LACTIC ACID (06/06/2024 6:09 PM BARKING MACHINE FEEDER) LACTIC ACID POC 1.9 <=2.0 mmol/L 06/06/2024 6:09 PM [facility] SPECIMEN SOURCE, GASES POC Blank 06/06/2024 6:09 PM BARKING MACHINE FEEDER [facility] LAB[facility] COMMENT, GASES POC Responsible Clinical Caregiver notified 06/06/2024 6:09 PM BARKING MACHINE FEEDER [facility] Blood 06/06/2024 6:09 PM BARKING MACHINE FEEDER 06/06/2024 6:11 PM BARKING MACHINE FEEDER Vicente Christianson MD POINT OF CARE TESTING Final Resu lt [facility]# [id number] Gayle5 Ros[address] MAGA[address] [id number] * BLOOD CULTURE PATHOGEN PCR PANEL (06/06/2024 6:05 PM BARKING MACHINE FEEDER) Blood Culture Pathogen PCR Panel NOT DETECTED No nucleic acids detected. 06/07/2024 10:10 PM BARKING MACHINE FEEDER [facility] Blood (Peripheral) Venipuncture / Unknown 06/06/2024 6:05 PM BARKING MACHINE FEEDER 06/06/2024 6:10 PM BARKING MACHINE FEEDER Narrative [facility] - 06/07/2024 10:10 PM BARKING MACHINE FEEDER Gram stain and preliminary PCR results called to Yadi Patrick RN (ST [facility] SURG 6) on 06/07/2024 at 10:09 PM and read back verified. The Film Array Blood Culture Identification Panel is a multiplexed nucleic acid detection test for bacterial and yeast nucleic acids in positive blood cultures. It also detects genetic determinants of resistance to methicillin (mecA/C and MREJ), vancomycin (Zelda and vanB), carbapenems (IMP, KPC, NDM, OXA-48 like and VIM), colistin (mcr-1) and ESBL (CTX-M). The following organisms are identified using the [employer] BCID Panel: Gram Positive Bacteria Enterococcus faecalis Enterococcus faecium Listeria monocytogenes Staphylococcus Staphylococcus aureus Staphylococcus epidermidis Staphylococcus lugdunensis Streptococcus Streptococcus agalactiae Streptococcus pneumoniae Streptococcus pyogenes Gram Negative Bacteria Acinetobacter calcoaceticus-baumannii Bacteroides fragilis Haemophilus influenzae Neisseria meningitidis (encapsulated) Pseudomonas aeruginosa Stenotrophomonas maltophilia Enterobacterales Enterobacter cloacae complex Escherichia coli Klebsiella aerogenes Klebsiella oxytoca Klebsiella pneumoniae group Proteus Salmonella Serratia marcescens Yeast Fallon albicans Fallon auris Nakaseomyces glabrata(formerly Fallon glabrata) Pichia kudriavzevii(formerly Fallon krusei) Fallon parapsilosis Fallon tropicalis Cryptococcus neoformans/rivera Vicente Christianson MD MICROBIOLOGY - GENERAL ORDERABLE S Final Result Performing Organization Address [facility]/ZIP Co de Phone Number [facility] [employer] [facility]# [id number] [address] [place] [address] * SEDIMENTATION RATE (06/06/2024 6:05 PM BARKING MACHINE FEEDER) ESR (SEDIMENTATION RATE) 28 <=30 mm/Hr 06/06/2024 6:38 PM BARKING MACHINE FEEDER [facility] Blood Venipuncture / Unknown 06/06/2024 6:05 PM BARKING MACHINE FEEDER 06/06/2024 6:10 PM BARKING MACHINE FEEDER Vicente Christianson MD HEMATOLOGY ORDERABLES Final Resu lt Performing Organization Address City/[facility]/ZIP Co de Phone Number [facility] [employer] [facility]# [id number] [address] [place] [address] * (ABNORMAL) HEMOGLOBIN A1C (02/13/2024 2:44 AM CDT) HEMOGLOBIN A1C 6.2(H) <5.7 % 02/13/2024 6:08 PM CDT [facility] EST. AVG GLUCOSE, A1C 131 mg/dL 02/13/2024 6:08 PM CDT [employer] [facility] Blood Venipuncture / Unknown 02/13/2024 2:44 AM CDT 02/13/2024 3:07 AM CDT Narrative [facility] - 02/13/2024 6:08 PM CDT HGB A1C INTERPRETATION NORMAL: <5.7% PRE-DIABETES: 5.7 - 6.4% DIABETES: 6.5% OR GREATER Ulises Montalvo MD CHEMISTRY ORDERABLES Fi nal Result [facility]# [id number] [address] [address] from Last 3 Months or Most Recently Relevant to Health Maintenance Insurance [facility] [id number] Advance Directives For more information, please contact: [phone] * Full Code (Latest Code Status on File) Date Activated Date Inactivated Comments 06/06/2024 9:14 PM 06/28/2024 3:25 PM * Full Code Date Activated Date Inactivated Comments 02/17/2024 12:39 PM 03/05/2024 5:37 PM * Full Code Date Activated Date Inactivated Comments 02/11/2024 11:51 AM 02/17/2024 12:39 PM
--- OUTSIDE RECORDS SUMMARY | 2024-08-13 11:50 | XMS_ITS ---
Author Organization [facility] Address [address] [place], [place] [id number] Care Team Providers Care Bolt Sawyer Name Role Phone MIN PORTILLO Unavailable [phone] Answer, Declined Unavailable Unavailable REASON FOR VISIT open sores on L ft Vital Signs Height 60 in 07/04/2023 Weight 190 lbs 07/04/2023 BMI 37.1 kg/m2 07/04/2023 Height-cm 152.4 cm 07/04/2023 Weight-kg 86.18 kg 07/04/2023 Encounters Encounter Location Date Provider Diagnosis [facility] [address] [place], [place] [id number] 07/04/2023 MIN PORTILLO Non-pressure chronic ulcer of left heel and midfoot with fat layer exposed L97.422 ; Cellulitis of left lower limb L03.116 ; Unspecified atherosclerosis of [place] arteries of extremities, bilateral legs I70.203 ; Localized edema R60.0 and Type 2 diabetes mellitus with foot ulcer E11.621 Assessments Encounter Date Diagnosis (ICD Code) Assessment Notes Treatment Notes Treatment Clinical Notes Section Notes 07/04/2023 Non-pressure chronic ulcer of left heel and midfoot with fat layer exposed (ICD-10 - L97.422) The ulcer to plantar left forefoot was debrided down to bleeding tissue. A dry sterile dressing was applied. The patient was given instruction on home dressing and told to use antibiotic ointment on the wound. The patient was instructed to minimize pressure on the wound and to call the office immediately if the wound should start to worsen. Cam Walker: A CAM walker was fitted and dispensed. The patient was instructed on its use. Encouraged patient to follow up in outpatient wound care facility where outcomes will be optimized, contact details given to patient. 07/04/2023 Cellulitis of left lower limb (ICD-10 - L03.116) The area of cellulitis was evaluated and it should be noted that antibiotics were discussed and a close evaluation was performed to assess the need for IV antibiotics versus oral antibiotics. Due to the non-ascending nature of the cellulitis and with no signs of abscess, topical antibiotics were chosen. 07/04/2023 Unspecified atherosclerosis of [place] arteries of extremities, bilateral legs (ICD-10 - I70.203) Patient educated on risks and aggravating factors of PVD, including conservative treatment options such as a diet and exercise regimen to aid in slowing progression of vascular disease 07/04/2023 Localized edema (ICD-10 - R60.0) 07/04/2023 Type 2 diabetes mellitus with foot ulcer (ICD-10 - E11.621) Patient educated on proper diabetic foot care and the importance of tight glycemic control in regards to the prevention of diabetic manifestations and symptomatology in lower extremity. Explained to patient the importance of keeping interdigital spaces dry, not walking bare foot, having supportive shoe gear, using moisturizer to skin on feet daily especially in winter months, and checking feet daily for any new lesions or areas suspicious of trauma infection or ulceration. Explained to patient to return to ED if any change in foot health associated with signs of systemic infection including but not limited to nausea, vomiting, fever. Plan Of Treatment Treatment Notes Assessment Notes Non-pressure chronic ulcer o f left heel and midfoot with fat layer exposed The ulcer to plantar left forefoot was debrided down to bleeding tissue. A dry sterile dressing was applied. The patient was given instruction on home dressing and told to use antibiotic ointment on the wound. The patient was instructed to minimize pressure on the wound and to call the office immediately if the wound should start to worsen. Cam Walker: A CAM walker was fitted and dispensed. The patient was instructed on its use. Encouraged patient to follow up in outpatient wound care facility where outcomes will be optimized, contact details given to patient. Cellulitis of left lower limb The area o f cellulitis was evaluated and it should be noted that antibiotics were discussed and a close evaluation was performed to assess the need for IV antibiotics versus oral antibiotics. Due to the non-ascending nature of the cellulitis and with no signs of abscess, topical antibiotics were chosen. Unspecified atherosclerosis of [place] arteries of extremities, bilateral legs Patient educated on risks and aggravating factors of PVD, including conservative treatment options such as a diet and exercise regimen to aid in slowing progression of vascular disease Type 2 diabetes mellitus with foot ulcer Patient educated on proper diabetic foot care and the importance of tight glycemic control in regards to the prevention of diabetic manifestations and symptomatology in lower extremity. Explained to patient the importance of keeping interdigital spaces dry, not walking bare foot, having supportive shoe gear, using moisturizer to skin on feet daily especially in winter months, and checking feet daily for any new lesions or areas suspicious of trauma infection or ulceration. Explained to patient to return to ED if any change in foot health associated with signs of systemic infection including but not limited to nausea, vomiting, fever. Next Appt Details Follow Up: prn, Reason: Progress Notes * Prema SAMUELSHortenciaB:[birth year] (62 yo F)Acc No.[id number]:07/04/2023 Progress Notes Patient: Alisha DRAKE Provider: Davida PORTILLO :1960 A ge:62 Y S ex:Female Date:07/04/2023 Address:[facility] [address] [id number] Subjective: * Chief Complaints: * 1 . open sores on L ft. * HPI: A chilles tendon injury: CAM boot l plantar forefoot ulcer. H PI: 62 year old female presents to clinic with chief complaint of left foot pain. Patient denies any constitutional symptoms at this time. Patient states about three weeks ago she fell outt the couch while laying down and noticed blood to the bottom of her sock and ended up with an open wound to the bottom of the left foot. Patient states she has been trying to change dressings daily to the wound area. Patient states the area is tender especially with prolonged weight to left foot. Patient states she went to ED where blood work was done and cultures of the wound were taken. * ROS: G eneral / Constitutional: Patient denies w eakness. R espiratory: Patient denies c hronic cough, shortness of breath, sputum production. C ardiovascular: Patient denies c hest pain, history of ID, irregular heartbeat. M usculoskeletal: Patient denies a rthritis, joint stiffness. ? P eripheral Vascular: Patient denies b lanching of skin, cold extremities, decreased sensation in extremities. S kin: Patient complains of u lcerations. N eurologic: Patient denies d izziness, gait abnormality, headache. * Medical History: N europathy, Asthma/Bronchitis, Leg/Feet cramps, Open Sores, Respiratory disease, Thyroid Disease, Back Trouble, High blood pressure, Lung Disease, Peripheral vascular disease. Objective: * Vitals: S hoe Size: 9, Wt:190lbs, Wt-k.18 kg, Ht: 60 in, Ht-cm: 152.4 cm, BMI:37.1Index, Body Surface Area: 1.91. * Examination: P hysical Examination: V ascular: Dorsalis Pedis pulse noted at 1/4 right foot and 1/4 left foot and Posterior Tibial pulse noted at 1/4 right foot and 1/4 left foot, Capillary refill times noted to be less than three seconds x ten, Temperature gradient noted to be warm to cool to bilateral foot, pedal hair present to bilateral foot and no varicosities are noted Dermatologic: left foot plantar forefoot wound noted with overlying hyperkeratotic tissue measuring at 6.1cm x 3.1cm x 0.4cm with a fibrogranular base, no undermining, no tunneling noted, no probe to bone, periwound erythema noted to plantar left foot, interdigital spaces are noted to be clean dry and intact at this time Musculoskeletal: there is no pain to palpation onto nail plate x ten, no calf pain noted bilaterally, arch height noted at 2/5 non-weight bearing bilaterally, first metatarsophalangeal joint range of motion 30 deg non-weight bearing bilaterally, pain to palpation plantar left forefoot wound Neurology: protective sensation diminished to light touch bilateral digits one through five, vibratory sensation intact to first metatarsophalangeal joint bilaterally. Assessment: * Assessment: 1. N on-pressure chronic ulcer of left heel and midfoot with fat layer exposed - L97.422 (Primary) 2 . C ellulitis of left lower limb - L03.116 3 . U nspecified atherosclerosis of [place] arteries of extremities, bilateral legs - I70.203 4 . L ocalized edema - R60.0 5 . T ype 2 diabetes mellitus with foot ulcer - E11.621 Plan: * Treatment: 2. C ellulitis of left lower limb Notes: The area of cellulitis was evaluated and it should be noted that antibiotics were discussed and a close evaluation was performed to assess the need for IV antibiotics versus oral antibiotics. Due to the non-ascending nature of the cellulitis and with no signs of abscess, topical antibiotics were chosen. 3. U nspecified atherosclerosis of [place] arteries of extremities, bilateral legs Notes: Patient educated on risks and aggravating factors of PVD, including conservative treatment options such as a diet and exercise regimen to aid in slowing progression of vascular disease ? 4. T ype 2 diabetes mellitus with foot ulcer Notes: Patient educated on proper diabetic foot care and the importance of tight glycemic control in regards to the prevention of diabetic manifestations and symptomatology in lower extremity. Explained to patient the importance of keeping interdigital spaces dry, not walking bare foot, having supportive shoe gear, using moisturizer to skin on feet daily especially in winter months, and checking feet daily for any new lesions or areas suspicious of trauma infection or ulceration. Explained to patient to return to ED if any change in foot health associated with signs of systemic infection including but not limited to nausea, vomiting, fever. * Procedure Codes: 1 1042 DEBRIDE SKIN/TISSUE, L4361 WALKING BOOT PNEUMATIC AND/OR VAC, Modifiers: LT , GA * Follow Up: p rn * Billing Information: * Visit Code: 17691 Office Visit, New Pt., Level 3. Modifiers: 25 * Procedure Codes: 97394 DEBRIDE SKIN/TISSUE. L4361 WALKING BOOT PNEUMATIC AND/OR VAC. Modifiers: LT, GA * [employer] Sign off status: Completed true * Provider: Davida PORTILLO Date: 0 07/04/2023 Generated for Tirso pinon/Carmen/Quyen on: 0 08/13/2024 11:49 AM CDT History and Physical Notes * HPI (History of Present Illness) Category Sub-Category Detail Notes Category Not es Achilles tendon injury CAM b oot l plantar forefoot ulcer HPI 62 year old fem reid presents to clinic with chief complaint of left foot pain. Patient denies any constitutional symptoms at this time. Patient states about three weeks ago she fell outt the couch while laying down and noticed blood to the bottom of her sock and ended up with an open wound to the bottom of the left foot. Patient states she has been trying to change dressings daily to the wound area. Patient states the area is tender especially with prolonged weight to left foot. Patient states she went to ED where blood work was done and cultures of the wound were taken. Examination Category Sub-Category Detail Notes Category Not es Physical Examination Vascular: Dorsalis Pedis pulse noted at 1/4 right foot and 1/4 left foot and Posterior Tibial pulse noted at 1/4 right foot and 1/4 left foot, Capillary refill times noted to be less than three seconds x ten, Temperature gradient noted to be warm to cool to bilateral foot, pedal hair present to bilateral foot and no varicosities are noted Dermatologic: left foot plantar forefoot wound noted with overlying hyperkeratotic tissue measuring at 6.1cm x 3.1cm x 0.4cm with a fibrogranular base, no undermining, no tunneling noted, no probe to bone, periwound erythema noted to plantar left foot, interdigital spaces are noted to be clean dry and intact at this time Musculoskeletal: there is no pain to palpation onto nail plate x ten, no calf pain noted bilaterally, arch height noted at 2/5 non-weight bearing bilaterally, first metatarsophalangeal joint range of motion 30 deg non-weight bearing bilaterally, pain to palpation plantar left forefoot wound Neurology: protective sensation diminished to light touch bilateral digits one through five, vibratory sensation intact to first metatarsophalangeal joint bilaterally
--- OUTSIDE RECORDS SUMMARY | 2024-08-13 11:50 | XMS_ITS | Clinical Summary ---
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 Roach at [phone]. Remove PICC line at end of treatment. [...] abx and fax to Dr. Roach at [phone]. Remove PICC line at end of treatment. Closed compression fracture of body of L1 verteb ra 03/06/2024 Assessment & Plan (03/20/2024 10:30 AM CDT): MRI 918 with acute L1 compression fracture. Orthopedic surgery [...] & Plan (03/06/2024 10:26 AM CDT): MRI 918 with acute L1 compression fracture. Orthopedic surgery [...] as well as physical and occupational therapy Encounters Date Type Department Care Team Description 08/06/2024 1:00 PM CDT Ancillary Procedure [facility] Vascular Lab IP [address] [place] [address] 07/31/2024 Results Follow-Up [facility] Emergency Department [address] [place] [address] Declan Malhotra RN 07/29/2024 12:50 PM SEAM RUBBER - 08/08/2024 5:58 PM CDT Hospital Encounter [address] [address] Ernesto Edwards MD Siegler, MD Amador Avila, MD Dustin Zepeda, MD Sherman Acuña, MD Rhona Eng, MD Don Vasques, MD Bismark Wade, Smith Henderson MD Hypokalemia (Primary Dx); Hypothyroidism, unspecified type; NSTEMI (non-ST elevated myocardial infarction) (HCC) Discharge Disposition: Discharge to SNF from Last 3 Months Surgical History Surgery Date Site/Laterality Comments US GUIDED BIOPSY LYMPH NODE SUPERFICIAL LEFT 03/01/2021 N/A Medical History Medical History Date Comments Hypertension COPD (chronic obstructive pulmonary disease) (HC C) Thyroid disease Family History Medical History Relation Name Comments Hypertension Mother Relation Name Status Comments Mother Social History Tobacco Use Types Packs/Day Years Used Date Smoking Tobacco: Every Day Cigarettes Tobacco Cessation:Ready to Q uit: Not Asked; Counseling Given: Not Answered [facility] Utilities Answer Date Recorded In the past 12 months has [employer], oil, or water [employer] threatened to shut off services in your [...] often do you attend chur ch or christianity services? More than 4 times per year 08/03/2024 Do you belong to any clubs o r organizations such as amish groups, unions, fraternal or athletic groups, or [...] any time in the past 12 m [facility], were you homeless or living in a jail (including now)? No 08/03/2024 Personal Safety Answer [...] on file Sexual Orientation Not on file Obstetrics History Last Filed Vital Signs Vital Sign Reading [...] Height 152.4 cm (5') 08/01/2024 9:50 PM SEAM RUBBER Body Mass Index 42.45 08/01/2024 9:50 PM SEAM RUBBER Plan of Treatment Health Maintenance Due Date Last Done Comments Albumin Creatinine Ratio, Urine 1960 Breast Cancer Screening-Mammogram 1959 Cervical Cancer Screening 1959 Colon Cancer Screening-Colonoscopy 1959 Hepatitis C Screening 1959 Osteoporosis Screening-Bone Density Scan 1960 Dilated Eye Exam 1959 Foot Exam 1959 Lipid Panel 1959 DTaP/Tdap/Td Vaccine (1 - Tdap) 1970 Hepatitis B Screening 1977 Zoster Vaccine (1 of 2) 2009 Pneumococcal vaccine 65+ (2 of 2 - PCV) 03/11/2021 03/11/2020 Influenza Vaccine (#1) 2024 03/11/2020, 2015 Well Visit 65+ 2024 Hemoglobin A1C 02/02/2025 08/02/2024, 03/0 12/2024, 02/13/2024 Depression Screening 07/29/2025 07/29/2024 eGFR 08/07/2025 08/07/2024, 07/25, 08/05/2024, Additional history exists Fall Risk Assessment 08/08/2025 08/08/2024 Procedures Procedure Name Priority Date/Time Associated Diagnosis [...] RESULT CALLBACK HEMATOLOGY STAT 08/02/2024 12:34 AM SEAM RUBBER APTT STAT 08/02/2024 12:34 AM SEAM RUBBER TROPONIN I HIGH-SENSITIVITY SERIES (BASELINE, 2HR, 4HR, 6HR) Routine 08/02/2024 12:34 AM SEAM RUBBER XR CHEST 1 VIEW IP Routine 08/01/2024 10:55 PM SEAM RUBBER TROPONIN I HIGH-SENSITIVITY Timed 08/01/2024 10:40 PM SEAM RUBBER HEMOGLOBIN A1C Routine 08/01/2024 10:34 PM SEAM RUBBER EGFR Routine 08/01/2024 10:34 PM SEAM RUBBER CALCIUM, IONIZED Timed 08/01/2024 10:3 4 PM SEAM RUBBER IRON PROFILE W/ IBC Routine 08/01/2024 1 0:34 PM SEAM RUBBER FERRITIN Routine 08/01/2024 10:34 PM SEAM RUBBER CBC WITHOUT DIFFERENTIAL Routine 08/01/2024 10:34 PM SEAM RUBBER MAGNESIUM Routine 08/01/2024 10:34 PM SEAM RUBBER COMPREHENSIVE METABOLIC PANEL Routine 08/01/2024 10:34 PM SEAM RUBBER LACTATE Routine 08/01/2024 10:34 PM SEAM RUBBER RESPIRATORY PATHOGEN PANEL Routine 08/01/2024 10:34 PM SEAM RUBBER POCT LACTATE - DEVICE Routine 08/01/2024 9:00 PM SEAM RUBBER TROPONIN I HIGH-SENSITIVITY 6-HOUR Timed 08/01/2024 8:57 PM SEAM RUBBER OR CRITICAL CARE ILL/INJURED PATIENT INIT 30-74 MIN Routine 08/01/2024 6:54 PM SEAM RUBBER TROPONIN I HIGH-SENSITIVITY 4-HOUR Timed 08/01/2024 5:53 PM SEAM RUBBER ECG 12-LEAD Routine 08/01/2024 4:17 PM SEAM RUBBER CRITICAL RESULT CALLBACK CARDIO CHEM Timed 08/01/2024 4:15 PM SEAM RUBBER TROPONIN I HIGH-SENSITIVITY 2-HOUR Timed 08/01/2024 4:15 PM SEAM RUBBER ECG 12-LEAD Routine 08/01/2024 3:21 PM SEAM RUBBER OR CRITICAL CARE ILL/INJURED PATIENT INIT 30-74 MIN Routine 08/01/2024 3:00 PM SEAM RUBBER BLOOD GAS, ARTERIAL Routine 08/01/2024 2 :44 PM SEAM RUBBER EGFR STAT 08/01/2024 2:28 PM SEAM RUBBER CRITICAL RESULT CALLBACK CHEMISTRY Routine 08/01/2024 2:28 PM SEAM RUBBER CALCIUM, IONIZED STAT 08/01/2024 2:28 PM SEAM RUBBER LACTATE Routine 08/01/2024 2:28 PM SEAM RUBBER PRO B-TYPE NATRIURETIC PEPTIDE STAT 08/01/2024 2:28 PM SEAM RUBBER PHOSPHORUS STAT 08/01/2024 2:28 PM SEAM RUBBER MAGNESIUM STAT 08/01/2024 2:28 PM SEAM RUBBER COMPREHENSIVE METABOLIC PANEL STAT 08/01/2024 2:28 PM SEAM RUBBER APTT STAT 08/01/2024 2:19 PM SEAM RUBBER CBC WITHOUT DIFFERENTIAL STAT 08/01/2024 2:19 PM SEAM RUBBER PROTIME-INR STAT 08/01/2024 2:19 PM SEAM RUBBER POTASSIUM, WHOLE BLOOD STAT 08/01/2024 1:59 PM SEAM RUBBER TROPONIN I HIGH-SENSITIVITY SERIES (BASELINE, 2HR, 4HR, 6HR) STAT 08/01/2024 1:58 PM SEAM RUBBER ECG 12-LEAD STAT 08/01/2024 1:[address] CHEST PE W CONTRAST ED 08/01/2024 12:36 PM SEAM RUBBER POCT GLUCOSE DEVICE Routine 07/31/2024 6 :11 AM SEAM RUBBER URINALYSIS, MICROSCOPIC ONLY STAT 07/30/2024 12:36 AM SEAM RUBBER URINE CULTURE STAT 07/30/2024 12:36 AM SEAM RUBBER URINALYSIS AND REFLEX TO MICROSCOPIC AND CULTURE STAT 07/30/2024 12:36 AM SEAM RUBBER ED PERIPHERAL LINE INSERTION Routine 07/29/2024 2:37 PM SEAM RUBBER POCUS CVC 07/29/2024 2:19 PM SEAM RUBBER EGFR STAT 07/29/2024 2:16 PM SEAM RUBBER T4, FREE STAT 07/29/2024 2:16 PM SEAM RUBBER DIFFERENTIAL AUTO STAT 07/29/2024 2:1 6 PM SEAM RUBBER TROPONIN I HIGH-SENSITIVITY SERIES (BASELINE, 2HR, 4HR, 6HR) STAT 07/29/2024 2:16 PM SEAM RUBBER THYROID FUNCTION CASCADE STAT 07/29/2024 2:16 PM SEAM RUBBER PRO B-TYPE NATRIURETIC PEPTIDE STAT 07/29/2024 2:16 PM SEAM RUBBER COMPREHENSIVE METABOLIC PANEL STAT 07/29/2024 2:16 PM SEAM RUBBER CBC WITH AUTO DIFFERENTIAL STAT 07/29/2024 2:16 PM SEAM RUBBER XR CHEST 1 VIEW ED 07/29/2024 2:00 PM SEAM RUBBER ECG 12-LEAD STAT 07/29/2024 1:49 PM SEAM RUBBER from Last 3 Months Results * eGFR (08/07/2024 9:33 PM CDT) eGFR 64 >=60 mL/min/1. 73 m2 Comment: [...] ORDERAB LES Final Result Performing Organization Address City/[facility]/ZIP Co de Phone Number [facility] [place] [address] * (ABNORMAL) CBC without differential (08/07/2024 9:33 PM CDT) [facility] WBC 3.1(L) 3.8 - 9.9 K/cumm Hgb 9.1(L) 11.9 - 15.5 g/dL [facility] Hct 29.6(L) 35.6 - 45.5 % [facility] Plt 130(L) 150 - 400 K/cumm [facility] MPV 12.1 9.1 - 12.3 fL [facility] RBC 3.35(L) 3.90 - 5.20 M/cumm [facility] MCV 88.4 81.3 - 96.4 fL [facility] MCH 27.2 27.1 - 33.3 pg [facility] MCHC 30.7(L) 32.3 - 35.7 g/dL [facility] RDW CV 17.8(H) 11.1 - 14.9 % [facility] RDW SD 56.4(H) 35.7 - 48.1 fL [facility] NRBC abs 0.00 0.00 - 0.01 K/cumm [facility] Blood 08/07/2024 9:33 PM CDT 08/07/2024 10:46 PM CDT us Raquel Ochoa MD LAB BLOOD ORDERAB LES Final Result [facility] [place] [address] * (ABNORMAL) Basic metabolic panel (08/07/2024 9:33 PM CDT) [facility] Sodium 137 135 - 145 mmol/L Potassium, pl 4.3 3.3 - 4.9 mmol/L [facility] Chloride 102 97 - 110 mmol/L [facility] CO2 28 22 - 32 mmol/L [facility] Anion gap 7 2 - 15 mmol/L [facility] BUN 15 6 - 25 mg/dL [facility] Creatinine 0.98 0.60 - 1.10 mg/dL [facility] Glucose 102 70 - 199 mg/dL [facility] Comment: Interpretive Data Fasting glucose >/= 126 [...] 2022. Calcium 8.4(L) 8.5 - 10.3 mg/dL [facility] Blood 08/07/2024 9:33 PM CDT 08/07/2024 10:45 PM CDT us Raquel Ochoa MD LAB BLOOD ORDERAB LES Final Result [facility] [place] [address] * eGFR (08/06/2024 11:37 PM CDT) [facility] eGFR 62 >=60 mL/min/1. 73 m2 Comment: [...] MD LAB BLOOD ORDERAB LES Final Result [facility] [place] [address] * (ABNORMAL) CBC without differential (08/06/2024 11:37 PM CDT) WBC 2.9(L) 3.8 - 9.9 K/cumm Hgb 9.1(L) 11.9 - 15.5 g/dL [facility] Hct 28.6(L) 35.6 - 45.5 % [facility] Plt 133(L) 150 - 400 K/cumm [facility] MPV 11.8 9.1 - 12.3 fL [facility] RBC 3.23(L) 3.90 - 5.20 M/cumm [facility] MCV 88.5 81.3 - 96.4 fL [facility] MCH 28.2 27.1 - 33.3 pg [facility] MCHC 31.8(L) 32.3 - 35.7 g/dL [facility] RDW CV 17.5(H) 11.1 - 14.9 % [facility] RDW SD 55.5(H) 35.7 - 48.1 fL [facility] NRBC abs 0.00 0.00 - 0.01 K/cumm [facility] Blood 08/06/2024 11:3 7 PM CDT 08/07/2024 12:25 AM CDT us Raquel Ochoa MD LAB BLOOD ORDERAB LES Final Result [facility] [place] [address] * (ABNORMAL) Basic metabolic panel (08/06/2024 11:37 PM CDT) [facility] Sodium 139 135 - 145 mmol/L Potassium, pl 4.0 3.3 - 4.9 mmol/L [facility] Chloride 103 97 - 110 mmol/L [facility] CO2 28 22 - 32 mmol/L [facility] Anion gap 8 2 - 15 mmol/L [facility] BUN 19 6 - 25 mg/dL [facility] Creatinine 1.01 0.60 - 1.10 mg/dL [facility] Glucose 111 70 - 199 mg/dL [facility] Comment: Interpretive Data Fasting glucose >/= 126 [...] 2022. Calcium 7.8(L) 8.5 - 10.3 mg/dL [facility] Blood 08/06/2024 11:3 7 PM CDT 08/07/2024 12:25 AM CDT us Raquel Ochoa MD LAB BLOOD ORDERAB LES Final Result Performing Organization Address [facility]/ZIP Co de Phone Number [facility] [place] [address] * US Vein Duplex Lower Extremity Bilateral Complete (08/06/2024 3:53 PM CDT) Anatomical Region Laterality Modality Vascular Bilateral Ultrasound 08/06/2024 2:26 PM CDT Narrative 08/06/2024 9:55 PM CDT [facility] - Department of Vascular Surgery, Vascular Laboratory [address] [place] [address] Lower Extremity Venous Ultrasound Report Patient Name: ALISHA MONTENEGRO : 1960 (64y ) Study Date: 08/06/2024 2:26:17 PM Gender: F Tech: Location: [id number] Ref Provider: SMITH SOFIA Quality: Adequate Order [...] chronic lymphedema, c/f dvt - FINDINGS: Performing Masonry Instructor: Alis Silva RVT. Bilateral: Venous Doppler signals [...] above. Electronically Signed By: Gilberto Brown MD [facility] [phone] 08/06/2024 9:09:36 PM CDT Procedure Note Gilberto Brown MD - 08/06/2024 [facility] - Department of Vascular Surgery,Vascular Laboratory [address] [place] [address] Lower Extremity Venous Ultrasound Report Patient Name: ALISHA MONTENEGRO : 1960 (64y ) Study Date: 08/06/2024 2:26:17 PM Gender: F Tech: Location: [id number] Ref Provider: SMITH SOFIA Quality: Adequate Order Provider: SMITH SOFIA PROCEDURES: Vascular Report: Venous Duplex imaging was performed bilaterally in the lower extremities.The common femoral, femoral, popliteal, posterior tibial, peroneal veins wereevaluated for patency, spontaneity and phasicity with Doppler, compression and augmentationmaneuvers. Great saphenous vein proximal at the junction was evaluated with compressionmaneuvers. INDICATIONS: fever, chronic lymphedema, c/f dvt - FINDINGS: Performing Masonry Instructor: Alis Silva RVT. Bilateral: Venous Doppler signals [...] above. Electronically Signed By: Gilberto Brown MD [facility] [phone] 08/06/2024 9:09:36 PM CDT us Smith Sofia MD [facility] US PROCEDURES Otilia l Result * Influenza A/B, RSV, and COVID-19 PCR Nasopharyngeal (08/06/2024 2:05 PM CDT) [facility] COVID-19 RNA Negative Negative [facility] Influenza A RNA Negative Negative [facility] Influenza B RNA Negative Negative [facility] RSV RNA Negative Negative [facility] Comment: Interpretive data: Testing performed by [facility] ([phone]). This test is performed using the [employer] Xpert Xpress CoV-2/Flu/RSV plus assay. This is a multiplex, real-time reverse transcriptase PCR assay intended for the qualitative detection of nucleic acid from SARS-CoV-2, influenza A, influenza B, and respiratory syncytial virus. This assay has been cleared by the [place] Food and Drug administration. The performance characteristics have been verified by the [facility]. Results must be considered in the clinical context, and a negative result does not rule out infection. Interpretive Data last revised 2023 Nasopharyngeal 08/06/2024 2: 05 PM CDT 08/06/2024 3:00 PM CDT Narrative [facility] - 08/06/2024 3:47 PM CDT Is the Patient experiencing symptoms consistent with COVID?->No us Smith Sofia MD LAB MICROBIOLOGY - GEN ERAL ORDERABLES Final Result [facility] [place] [address] [facility] * (ABNORMAL) Urinalysis reflex to microscopic and culture Urine, clean voided (08/06/2024 1:04 AM CDT) Pathologist [facility] Color, ur Yellow Yellow Clarity, ur Clear Clear [facility] Specific gravity, ur 1.029 1.003 - 1.030 [facility] pH, urine 6.0 [facility] Comment: Interpretive Data U rine pH is affected by diet, medications, systemic acid-base disturbances, and renal tubular function. pH may affect urinary stone formation. For example, urine pH below 6.0 may help reduce the tendency for calcium phosphate stones and pH greater than 6.0 may reduce the tendency for uric acid stone formation. Source: [facility] Current Interpretive Data was last revised on 2017 Protein, ur ql 1+(A) Negative [facility] Glucose, ur ql 4+(A) Negative [facility] Ketones, ur Negative Negative [facility] Bilirubin, ur Negative Negative [facility] Blood, ur Negative Negative [facility] Urobilinogen, ur 2.0(A) <2.0 mg/dL [facility] Nitrite, ur Negative Negative [facility] Leukocyte esterase, ur Negative Negative [facility] UA reflex comment Reflex to microscopic UA will be performed. [facility] Urine, clean voided 08/06/2024 1:04 AM CDT 08/06/2024 1:17 AM CDT us Smith Sofia MD LAB MICROBIOLOGY - GEN ERAL ORDERABLES Final Result Performing Organization Address [facility] de Phone Number [facility] [place] [address] * (ABNORMAL) Urinalysis, microscopic only (08/06/2024 1:04 AM CDT) WBC, ur 0-5 0 - 5 /HPF RBC, ur 6-10(A) 0 - 2 /HPF [facility] Epithelial cells, squamous, ur 1-5 0 - 5 /HPF [facility] Bacteria, ur Trace(A) [facility] Hyaline casts, ur 11-20(A) 0 - 10 /LPF [facility] Culture Reflex Comment Reflex conditions for urine culture (WBC >10) not met. [facility] Urine, clean voided 08/06/2024 1:04 AM CDT 08/06/2024 1:17 AM CDT us Smith Sofia MD LAB URINE ORDERABLES F inal Result Performing Organization Address [facility] de Phone Number [facility] [place] [address] * Lactate (08/06/2024 12:34 AM CDT) Lactate 1.1 0.7 - 2.0 mmol/L Blood 08/06/2024 12:3 4 AM CDT 08/06/2024 1:26 AM CDT Smith Sofia MD LAB BLOOD ORDERABLES F inal Result [facility] [place] [address] * XR Chest 1 View (08/05/2024 11:27 [...] radiograph Procedure Note Wilfred Pat MD - 08/06/2024 EXAMINATION: 1 view chest radiograph IMPRESSION: The [...] CDT 08/06/2024 12:36 AM CDT Narrative [facility] - 08/10/2024 7:00 AM CDT From a [...] performance characteristics have been verified by the [facility]. For questions about this culture, contact the Microbiology Laboratory at [phone]. Interpretive data was last revised on 24. us Smith Sofia MD LAB MICROBIOLOGY - GEN ERAL ORDERABLES Final Result [facility] [place] [address] * Blood culture Blood (08/05/2024 10:54 PM [...] performance characteristics have been verified by the [facility]. For questions about this culture, contact the Microbiology Laboratory at [phone]. Interpretive data was last revised on 24. Smith Sofia MD LAB MICROBIOLOGY - GEN ERAL ORDERABLES Final Result [facility] [place] [address] * (ABNORMAL) eGFR (08/05/2024 10:15 PM CDT) [...] ORDERAB LES Final Result Performing Organization Address City/[facility]/ZIP Co de Phone Number [facility] [place] [address] * (ABNORMAL) CBC without differential (08/05/2024 10:15 PM CDT) Pathologist [facility] WBC 3.8 3.8 - 9.9 K/cumm Hgb 9.5(L) 11.9 - 15.5 g/dL [facility] Hct 29.8(L) 35.6 - 45.5 % [facility] Plt 151 150 - 400 K/cumm [facility] MPV 11.4 9.1 - 12.3 fL [facility] RBC 3.37(L) 3.90 - 5.20 M/cumm [facility] MCV 88.4 81.3 - 96.4 fL [facility] MCH 28.2 27.1 - 33.3 pg [facility] MCHC 31.9(L) 32.3 - 35.7 g/dL [facility] RDW CV 17.6(H) 11.1 - 14.9 % [facility] RDW SD 54.4(H) 35.7 - 48.1 fL [facility] NRBC abs 0.00 0.00 - 0.01 K/cumm [facility] Blood 08/05/2024 10:1 5 PM CDT 08/05/2024 11:23 PM CDT us Raquel Ochoa MD LAB BLOOD ORDERAB LES Final Result Performing Organization Address City/[facility]/ZIP Co de Phone Number [facility] [place] [address] * (ABNORMAL) Basic metabolic panel (08/05/2024 10:15 PM CDT) Sodium 140 135 - 145 mmol/L Potassium, pl 4.3 3.3 - 4.9 mmol/L [facility] Chloride 98 97 - 110 mmol/L [facility] CO2 30 22 - 32 mmol/L [facility] Anion gap 12 2 - 15 mmol/L [facility] BUN 18 6 - 25 mg/dL [facility] Creatinine 1.33(H) 0.60 - 1.10 mg/dL [facility] Glucose 110 70 - 199 mg/dL [facility] Comment: Interpretive Data Fasting glucose >/= 126 [...] 2022. Calcium 8.2(L) 8.5 - 10.3 mg/dL [facility] Blood 08/05/2024 10:1 5 PM CDT 08/05/2024 11:28 PM CDT us Raquel Ochoa MD LAB BLOOD ORDERAB LES Final Result [facility] [place] [address] * (ABNORMAL) Lactate (08/05/2024 9:07 AM CDT) Pathologist [facility] Lactate 2.1(H) 0.7 - 2.0 mmol/L Blood 08/05/2024 9:07 AM CDT 08/05/2024 10:10 AM CDT us Smith Sofia MD LAB BLOOD ORDERABLES F inal Result Performing Organization Address [facility] de Phone Number [facility] [place] [address] * (ABNORMAL) Lactate (08/05/2024 3:10 AM CDT) [facility] Lactate 2.6(H) 0.7 - 2.0 mmol/L Blood 08/05/2024 3:10 AM CDT 08/05/2024 3:26 AM CDT Smith Sofia MD LAB BLOOD ORDERABLES F inal Result Performing Organization Address [facility] de Phone Number [facility] [place] [address] * Troponin I high-sensitivity (08/04/2024 11:50 PM CDT) [facility] Trop I hs 11 <=17 ng/L Comment: Interpretive Data For further hscTnI resources including the diagnostic algorithm and an aid in interpretation, copy and paste this link: https://bjhlab.testcatalog.org/show/[email or web address] Current Interpretive Data last revised 2019. Blood 08/04/2024 11:5 0 PM CDT 08/05/2024 12:34 AM CDT Alexa Gregorio MD LAB BLOOD ORDERABLES Otilia l Result Performing Organization Address [facility] Co de Phone Number [facility] [place] [address] * (ABNORMAL) eGFR (08/04/2024 11:50 PM CDT) [facility] eGFR 57(L) >=60 mL/min/1. 73 m2 Comment: [...] 0 PM CDT 08/05/2024 12:33 AM CDT Raquel Ochoa MD LAB BLOOD ORDERAB LES Final Result Performing Organization Address City/[facility]/ZIP Co de Phone Number [facility] [place] [address] * (ABNORMAL) Lactate, whole blood (08/04/2024 11:50 PM CDT) [facility] Lactate, bld 2.9(H) 0.7 - 2.0 mmol/L Blood 08/04/2024 11:5 0 PM CDT 08/05/2024 12:23 AM CDT Alexa Gregorio MD LAB BLOOD ORDERABLES Otilia l Result [facility] [place] [address] * (ABNORMAL) CBC without differential (08/04/2024 11:50 PM CDT) [facility] WBC 7.6 3.8 - 9.9 K/cumm Hgb 11.4(L) 11.9 - 15.5 g/dL [facility] Hct 36.2 35.6 - 45.5 % [facility] Plt 210 150 - 400 K/cumm [facility] MPV 11.0 9.1 - 12.3 fL [facility] RBC 4.09 3.90 - 5.20 M/cumm [facility] MCV 88.5 81.3 - 96.4 fL [facility] MCH 27.9 27.1 - 33.3 pg [facility] MCHC 31.5(L) 32.3 - 35.7 g/dL [facility] RDW CV 17.3(H) 11.1 - 14.9 % [facility] RDW SD 53.1(H) 35.7 - 48.1 fL [facility] NRBC abs 0.00 0.00 - 0.01 K/cumm [facility] Blood 08/04/2024 11:5 0 PM CDT 08/05/2024 12:34 AM CDT Raquel Ochoa MD LAB BLOOD ORDERAB LES Final Result [facility] [place] [address] * Basic metabolic panel (08/04/2024 11:50 PM CDT) Sodium 139 135 - 145 mmol/L Potassium, pl 3.7 3.3 - 4.9 mmol/L [facility] Chloride 97 97 - 110 mmol/L [facility] CO2 30 22 - 32 mmol/L [facility] Anion gap 12 2 - 15 mmol/L [facility] BUN 13 6 - 25 mg/dL [facility] Creatinine 1.08 0.60 - 1.10 mg/dL [facility] Glucose 116 70 - 199 mg/dL [facility] Comment: Interpretive Data Fasting glucose >/= 126 [...] 2022. Calcium 9.0 8.5 - 10.3 mg/dL [facility] Blood 08/04/2024 11:5 0 PM CDT 08/05/2024 12:33 AM CDT us Raquel Ochoa MD LAB BLOOD ORDERAB LES Final Result [facility] [place] [address] * CT Head WO Contrast (08/04/2024 11:28 [...] by: Maya Harrell MD Smith Sofia MD IMG CT PROCEDURES Otilia l Result * eGFR [...] ORDERAB LES Final Result Performing Organization Address [facility] Co de Phone Number [facility] [place] [address] * (ABNORMAL) CBC without differential (08/03/2024 10:20 PM CDT) WBC 4.0 3.8 - 9.9 K/cumm Hgb 10.5(L) 11.9 - 15.5 g/dL [facility] Hct 32.8(L) 35.6 - 45.5 % [facility] Plt 183 150 - 400 K/cumm [facility] MPV 10.8 9.1 - 12.3 fL [facility] RBC 3.77(L) 3.90 - 5.20 M/cumm [facility] MCV 87.0 81.3 - 96.4 fL [facility] MCH 27.9 27.1 - 33.3 pg [facility] MCHC 32.0(L) 32.3 - 35.7 g/dL [facility] RDW CV 16.8(H) 11.1 - 14.9 % [facility] RDW SD 52.1(H) 35.7 - 48.1 fL [facility] NRBC abs 0.00 0.00 - 0.01 K/cumm [facility] Blood 08/03/2024 10:2 0 PM CDT 08/03/2024 10:50 PM CDT us Raquel Ochoa MD LAB BLOOD ORDERAB LES Final Result Performing Organization Address City/[facility]/ZIP Co de Phone Number [facility] [place] [address] * Magnesium (08/03/2024 10:20 PM CDT) Pathologist [facility] Magnesium 1.9 1.4 - 2.5 mg/dL Blood 08/03/2024 10:2 0 PM CDT 08/03/2024 10:49 PM CDT us Raquel Ochoa MD LAB BLOOD ORDERAB LES Final Result Performing Organization Address City/[facility]/ZIP Co de Phone Number [facility] [place] [address] * (ABNORMAL) Basic metabolic panel (08/03/2024 10:20 PM CDT) [facility] Sodium 143 135 - 145 mmol/L Potassium, pl 3.3 3.3 - 4.9 mmol/L [facility] Chloride 100 97 - 110 mmol/L [facility] CO2 33(H) 22 - 32 mmol/L [facility] Anion gap 10 2 - 15 mmol/L [facility] BUN 10 6 - 25 mg/dL [facility] Creatinine 0.94 0.60 - 1.10 mg/dL [facility] Glucose 96 70 - 199 mg/dL [facility] Comment: Interpretive Data Fasting glucose >/= 126 [...] 2022. Calcium 8.6 8.5 - 10.3 mg/dL [facility] Blood 08/03/2024 10:2 0 PM CDT 08/03/2024 10:49 PM CDT us Raquel Ochoa MD LAB BLOOD ORDERAB LES Final Result Performing Organization Address [facility]/ZIP Co de Phone Number [facility] [place] [address] * TRANSTHORACIC ECHO (TTE) COMPLETE W DOPPLER/CF W CONTRAST (08/03/2024 10:04 AM CDT) LV EF 45-50 % CONS SCIMAGE Anatomical Region Laterality Modality Ultrasound 08/03/2024 9:58 AM CDT Narrative 08/03/2024 11:00 AM CDT [facility] Cardiac [place] [address] Transthoracic Echocardiographic Report Patient Name: ALIHSA MONTENEGRO : 1960 (64y ) Gender: F Study Date: 08/03/2024 09:58:49 AM Ht(Inch): 60 Wt(Lb): 212.08 BSA: 2.02 Masonry Instructor: Elida Lombardi [facility] Location: [id number] Order Provider: RAQUEL OCHOA BMI: 41.41 BP: [...] Procedure Note Mannie Barron MD - 08/03/2024 [facility] Cardiac [place] [address] Transthoracic Echocardiographic Report Patient Name: ALISHA MONTENEGRO : 1960 (64y ) Gender: F Study Date: 08/03/2024 09:58:49 AM Ht(Inch): 60 Wt(Lb): 212.08 BSA: 2.02 Masonry Instructor: Elida Lombardi [facility] Location: [id number] Order Provider: RAQUEL OCHOA BMI: 41.41 BP: [...] 5.00 ] PV Peak PG2.56 mmHg RA Jspnsb12.65 ml RA Volume Index15.17 ml/m2 AoR Diam 2D 3.09 cm [ 2.70 - 3.70 ] Ao Root Index 1.53 cm/m2 [ 1.00 - 2.00 ] Asc Ao Diam 2D3.28 cm Asc Ao Index1.62 cm/m2 Electronically Signed By: Mannie Barron MD 08/03/2024 11:00:16 AM CDT us Raquel Ochoa MD CV ECHO PROCEDURE S Final Result * (ABNORMAL) Lactate (08/03/2024 4:26 AM CDT) Lactate 2.5(H) 0.7 - 2.0 mmol/L Blood 08/03/2024 4:26 AM CDT 08/03/2024 4:52 AM CDT Result [facility] Smith Sofia MD LAB BLOOD ORDERABLES F inal Result Performing Organization Address [facility] Co de Phone Number [facility] [address] * Lactate (08/03/2024 12:25 AM CDT) [facility] Lactate 1.1 0.7 - 2.0 mmol/L Blood 08/03/2024 12:2 5 AM CDT 08/03/2024 12:45 AM CDT Result [facility] Smith Sofia MD LAB BLOOD ORDERABLES F inal Result Performing Organization Address [facility] Co de Phone Number [facility] [address] * Lactate (08/02/2024 8:16 PM CDT) [facility] Lactate 1.2 0.7 - 2.0 mmol/L Blood 08/02/2024 8:16 PM CDT 08/02/2024 8:52 PM CDT Result [facility] Smith Sofia MD LAB BLOOD ORDERABLES F inal Result Performing Organization Address City/[facility] Co de Phone Number [facility] [address] * eGFR (08/02/2024 8:16 PM CDT) [facility] eGFR 69 >=60 mL/min/1. 73 m2 Comment: [...] MD LAB BLOOD ORDERAB LES Final Result [facility] [place] [address] * (ABNORMAL) CBC without differential (08/02/2024 8:16 PM CDT) WBC 4.6 3.8 - 9.9 K/cumm Hgb 9.6(L) 11.9 - 15.5 g/dL [facility] Hct 30.1(L) 35.6 - 45.5 % [facility] Plt 197 150 - 400 K/cumm [facility] MPV 10.6 9.1 - 12.3 fL [facility] RBC 3.51(L) 3.90 - 5.20 M/cumm [facility] MCV 85.8 81.3 - 96.4 fL [facility] MCH 27.4 27.1 - 33.3 pg [facility] MCHC 31.9(L) 32.3 - 35.7 g/dL [facility] RDW CV 16.5(H) 11.1 - 14.9 % [facility] RDW SD 51.7(H) 35.7 - 48.1 fL [facility] NRBC abs 0.00 0.00 - 0.01 K/cumm [facility] Blood 08/02/2024 8:16 PM CDT 08/02/2024 8:52 PM CDT us Raquel Ochoa MD LAB BLOOD ORDERAB LES Final Result Performing Organization Address City/[facility]/ZIP Co de Phone Number [facility] [place] [address] * Magnesium (08/02/2024 8:16 PM CDT) [facility] Magnesium 2.0 1.4 - 2.5 mg/dL Blood 08/02/2024 8:16 PM CDT 08/02/2024 8:51 PM CDT Raquel Ochoa MD LAB BLOOD ORDERAB LES Final Result Performing Organization Address City/[facility] Co de Phone Number [facility] [place] [address] * (ABNORMAL) Basic metabolic panel (08/02/2024 8:16 PM CDT) [facility] Sodium 142 135 - 145 mmol/L Potassium, pl 3.3 3.3 - 4.9 mmol/L [facility] Chloride 102 97 - 110 mmol/L [facility] CO2 33(H) 22 - 32 mmol/L [facility] Anion gap 7 2 - 15 mmol/L [facility] BUN 9 6 - 25 mg/dL [facility] Creatinine 0.92 0.60 - 1.10 mg/dL [facility] Glucose 98 70 - 199 mg/dL [facility] Comment: Interpretive Data Fasting glucose >/= 126 [...] 2022. Calcium 8.7 8.5 - 10.3 mg/dL [facility] Blood 08/02/2024 8:16 PM CDT 08/02/2024 8:51 PM CDT us Raquel Ochoa MD LAB BLOOD ORDERAB LES Final Result [facility] [place] [address] * Lactate (08/02/2024 5:03 AM CDT) Lactate 1.4 0.7 - 2.0 mmol/L Blood 08/02/2024 5:03 AM CDT 08/02/2024 5:28 AM CDT Raquel Ochoa MD LAB BLOOD ORDERAB LES Final Result Performing Organization Address City/[facility] Co de Phone Number [facility] [place] [address] * aPTT (08/02/2024 5:03 AM CDT) aPTT 34 28 - 38 sec Comment: Interpretive Data Heparin therapeutic range: 66.0 - 100.0 seconds. Range based on correlation with therapeutic heparin activity range of 0.3 - 0.7 Units/mL. Current interpretive data was last revised on 2023. Blood 08/02/2024 5:03 AM CDT 08/02/2024 5:38 AM CDT Narrative [facility] - 08/02/2024 6:03 AM CDT STAT PTT [...] ORDERAB LES Final Result Performing Organization Address City/[facility] Co de Phone Number [facility] [place] [address] * (ABNORMAL) Troponin I high-sensitivity series (baseline, 2hr, 4hr, 6hr) (08/02/2024 12:34 AM SEAM RUBBER) Trop I hs 154(H) <=17 ng/L Comment: Interpretive Data For further hscTnI resources including the diagnostic algorithm and an aid in interpretation, copy and paste this link: [email or web address].testcatalog.org/show/[email or web address] Current Interpretive Data last revised 2019. Blood 08/02/2024 12:3 4 AM SEAM RUBBER 08/02/2024 12:53 AM SEAM RUBBER us Raquel Ochoa MD LAB BLOOD ORDERAB LES Final Result [facility] [place] [address] * Critical Result Callback Hematology (08/02/2024 12:34 AM SEAM RUBBER) Date Notified [id number] Time Notified 304 [facility]O ESCOBAR TestName ptt [facility] PACKER Called/Read Back clare ESCOBAR Credentials BLENDING TANK [employer]ENDER [facility] PACKER Called By ss [facility]O ESCOBAR Blood 08/02/2024 12:3 4 AM SEAM RUBBER 08/02/2024 3:03 AM CDT Nelly Torres MD LAB BLOOD ORDERABLES Final Result Performing Organization Address [facility] de Phone Number [facility] [place] [address] * (ABNORMAL) aPTT (08/02/2024 12:34 AM SEAM RUBBER) aPTT >150(C) 28 - 38 sec Comment: clare ayala rn Interpretive Data Heparin therapeutic range: 66.0 - 100.0 seconds. Range based on correlation with therapeutic heparin activity range of 0.3 - 0.7 Units/mL. Current interpretive data was last revised on 2023. Blood 08/02/2024 12:3 4 AM SEAM RUBBER 08/02/2024 3:03 AM CDT Nelly Torres MD LAB BLOOD ORDERABLES Final Result Performing Organization Address [facility] Phone Number [facility] [place] [address] * X-ray chest 1 view (Portable) (08/01/2024 10:55 PM SEAM RUBBER) Anatomical Region Laterality Modality Body, Chest N/A Computed Radiogr aphy 08/01/2024 11:0 4 PM SEAM RUBBER Impressions 08/01/2024 11:04 PM SEAM RUBBER Comparison to 07/29/2024. There is a patchy mid and basilar lung opacities appear slightly increased from prior and could represent edema which was better seen on the prior CT. There is no pneumothorax or definite pleural effusion. Heart and mediastinum are unchanged. Electronically signed by: Ryan Mcbride M.D. Narrative 08/01/2024 11:04 PM SEAM RUBBER EXAMINATION: 1 view chest radiograph Procedure Note [...] unchanged. Electronically signed by: Ryan Mcbride M.D. Raquel Ochoa MD IMG XR PROCEDURES Final Result * (ABNORMAL) Troponin I high-sensitivity (08/01/2024 10:40 PM SEAM RUBBER) [facility] Trop I hs 157(H) <=17 ng/L Comment: Interpretive Data For further hscTnI resources including the diagnostic algorithm and an aid in interpretation, copy and paste this link: https://bjhlab.testcatalog.org/show/hsTrop-[email or web address] Current Interpretive Data last revised 2019. Blood 08/01/2024 10:4 0 PM SEAM RUBBER 08/01/2024 11:39 PM SEAM RUBBER us Raquel Ochoa MD LAB BLOOD ORDERAB LES Final Result Performing Organization Address City/[facility]/ZIP Co de Phone Number [facility] [place] [address] * (ABNORMAL) Lactate (08/01/2024 10:34 PM SEAM RUBBER) [facility] Lactate 3.3(H) 0.7 - 2.0 mmol/L Blood 08/01/2024 10:3 4 PM SEAM RUBBER 08/01/2024 11:39 PM SEAM RUBBER Raquel Ochoa MD LAB BLOOD ORDERAB LES Final Result Performing Organization Address City/[facility]/ZIP Co de Phone Number [facility] [place] [address] * eGFR (08/01/2024 10:34 PM SEAM RUBBER) eGFR 76 >=60 mL/min/1. 73 m2 Comment: [...] reviewed 2021. Blood 08/01/2024 10:3 4 PM SEAM RUBBER 08/01/2024 11:40 PM SEAM RUBBER us Raquel Ochoa MD LAB BLOOD ORDERAB LES Final Result [facility] [place] [address] * (ABNORMAL) Calcium, ionized (08/01/2024 10:34 PM SEAM RUBBER) Calcium, Ionized 4.18(L) 4.50 - 5.10 mg/dL Blood 08/01/2024 10:3 4 PM SEAM RUBBER 08/01/2024 11:27 PM SEAM RUBBER us Raquel Ochoa MD LAB BLOOD ORDERAB LES Final Result [facility] [place] [address] * (ABNORMAL) Iron profile w/ IBC (08/01/2024 10:34 PM SEAM RUBBER) [facility] Iron 68 35 - 145 mcg/dL TIBC 151(L) 250 - 400 mcg/dL [facility] Transferrin saturation 45 20 - 50 % [facility] Blood 08/01/2024 10:3 4 PM SEAM RUBBER 08/01/2024 11:40 PM SEAM RUBBER Raquel Ochoa MD LAB BLOOD ORDERAB LES Final Result [facility] [place] [address] * (ABNORMAL) Respiratory pathogen panel Nasopharyngeal (08/01/2024 10:34 PM SEAM RUBBER) [facility] Influenza A RNA Not Detected Not Detected Influenza B RNA Not Detected Not Detected [facility] RSV RNA Not Detected Not Detected [facility] COVID-19 RNA Not Detected Not Detected [facility] Coronavirus 229E RNA Not Detected Not Detected [facility] Coronavirus HKU1 RNA Not Detected Not Detected [facility] Coronavirus NL63 RNA Not Detected Not Detected [facility] Coronavirus OC43 RNA Not Detected Not Detected [facility] Adenovirus DNA Not Detected Not Detected [facility] Metapneumovirus RNA Detected(A) Not Detected [facility] Rhinovirus/Enterov irus RNA Not Detected Not Detected [facility] Parainfluenza 1 RNA Not Detected Not Detected [facility] Parainfluenza 2 RNA Not Detected Not Detected [facility] Parainfluenza 3 RNA Not Detected Not Detected [facility] Parainfluenza 4 RNA Not Detected Not Detected [facility] B. pertussis DNA Not Detected Not Detected [facility] B. parapertussis DNA Not Detected Not Detected [facility] C. pneumoniae DNA Not Detected Not Detected [facility] M. pneumoniae DNA Not Detected Not Detected [facility] Nasopharyngeal 08/01/2024 10 :34 PM SEAM RUBBER 08/01/2024 11:47 PM SEAM RUBBER Narrative [facility] - 08/02/2024 1:01 AM SEAM RUBBER Is the Patient experiencing symptoms consistent with COVID?->No Surveillance testing for transplant patient?->No Interpretive Data The [employer] FilmArray Respiratory Panel (RP2.1) assay is a [...] assay has FDA clearance for testing of BLENDING TANK TENDER swabs. The performance of additional specimen types has been assessed by the performing laboratory. The performance characteristics of this assay have been determined by [facility] Molecular Infectious Disease [facility]. Current interpretive data was last revised on 22. us Raquel Ochoa MD LAB MICROBIOLOGY - GENERAL ORDERABLES Final Result Performing Organization Address [facility] Co de Phone Number [facility] [place] [address] * (ABNORMAL) CBC without differential (08/01/2024 10:34 PM SEAM RUBBER) WBC 7.8 3.8 - 9.9 K/cumm Hgb 9.8(L) 11.9 - 15.5 g/dL [facility] Hct 31.1(L) 35.6 - 45.5 % [facility] Plt 260 150 - 400 K/cumm [facility] MPV 11.2 9.1 - 12.3 fL [facility] RBC 3.62(L) 3.90 - 5.20 M/cumm [facility] MCV 85.9 81.3 - 96.4 fL [facility] MCH 27.1 27.1 - 33.3 pg [facility] MCHC 31.5(L) 32.3 - 35.7 g/dL [facility] RDW CV 16.0(H) 11.1 - 14.9 % [facility] RDW SD 50.1(H) 35.7 - 48.1 fL [facility] NRBC abs 0.00 0.00 - 0.01 K/cumm [facility] Blood 08/01/2024 10:3 4 PM SEAM RUBBER 08/01/2024 11:39 PM SEAM RUBBER Raquel Ochoa MD LAB BLOOD ORDERAB LES Final Result [facility] [place] [address] * Magnesium (08/01/2024 10:34 PM SEAM RUBBER) Magnesium 1.9 1.4 - 2.5 mg/dL Blood 08/01/2024 10:3 4 PM SEAM RUBBER 08/01/2024 11:40 PM SEAM RUBBER us Raquel Ochoa MD LAB BLOOD ORDERAB LES Final Result Performing Organization Address [facility] Co de Phone Number [facility] [place] [address] * Hemoglobin A1c (08/01/2024 10:34 PM SEAM RUBBER) Hgb A1C 4.8 4.0 - 5.6 % Estimated Average Glucose 91 mg/dL [facility] Comment: The ADA recommends reporting an estimated Average Glucose (eAG) with all Hemoglobin A1c results using the equation derived from a study of 507 normal and diabetic adults. Minority populations were underrepresented and children were not included. (Diabetes Care 2020; 43(S1): S66-S76). The eAG is not equivalent to a fasting glucose. Blood 08/01/2024 10:3 4 PM SEAM RUBBER 08/01/2024 11:44 PM SEAM RUBBER us Nelly Torres MD LAB BLOOD ORDERABLES Final Result Performing Organization Address [facility] Co de Phone Number [facility] [place] [address] * (ABNORMAL) Ferritin (08/01/2024 10:34 PM SEAM RUBBER) [facility] Ferritin 342(H) 13 - 150 ng/mL Blood 08/01/2024 10:3 4 PM SEAM RUBBER 08/01/2024 11:40 PM SEAM RUBBER us Raquel Ochoa MD LAB BLOOD ORDERAB LES Final Result Performing Organization Address [facility] Co de Phone Number [facility] [address] * (ABNORMAL) Comprehensive metabolic panel (08/01/2024 10:34 PM SEAM RUBBER) Pathologist [facility] Sodium 145 135 - 145 mmol/L Potassium, pl 3.1(L) 3.3 - 4.9 mmol/L [facility] Chloride 99 97 - 110 mmol/L [facility] CO2 31 22 - 32 mmol/L [facility] Anion gap 15 2 - 15 mmol/L [facility] BUN 7 6 - 25 mg/dL [facility] Creatinine 0.85 0.60 - 1.10 mg/dL [facility] Glucose 132 70 - 199 mg/dL [facility] Comment: Interpretive Data Fasting glucose >/= 126 [...] 2022. Calcium 8.8 8.5 - 10.3 mg/dL [facility] Bilirubin, total 0.4 0.1 - 1.2 mg/dL [facility] Protein, pl 6.4(L) 6.5 - 8.5 g/dL [facility] Albumin 3.4(L) 3.5 - 5.0 g/dL [facility] Alk phos 89 40 - 130 Units/L [facility] ALT 7 7 - 45 Units/L [facility] AST 25 10 - 45 Units/L [facility] Blood 08/01/2024 10:3 4 PM SEAM RUBBER 08/01/2024 11:40 PM SEAM RUBBER us Raquel Ochoa MD LAB BLOOD ORDERAB LES Final Result [facility] [place] [address] * (ABNORMAL) POCT lactate (08/01/2024 9:00 PM SEAM RUBBER) [facility] Lactate POC i-STAT 3.4(H) 0.7 - 2.0 mmol/L Blood 08/01/2024 9:00 PM SEAM RUBBER 08/01/2024 9:00 PM SEAM RUBBER us Raquel Ochoa MD LAB POCT ORDERABL ES - DEVICE Final Result Performing Organization Address [facility] Co de Phone Number [facility] [place] [address] * (ABNORMAL) Troponin I high-sensitivity 6-hour (08/01/2024 8:57 PM SEAM RUBBER) Trop I hs 120(H) <=17 ng/L Comment: Interpretive Data For further hscTnI resources including the diagnostic algorithm and an aid in interpretation, copy and paste this link: https://bjhlab.testcatalog.org/show/hsTrop-1 Current Interpretive Data last revised 2019. Trop I hs delta 95(C) ng/L [facility] Comment:Previous critical va lue noted within 48 hours ago. Trop I hs interp Significa nt(C) [facility] Comment:Previous critical va lue noted within 48 hours ago. Blood 08/01/2024 8:57 PM SEAM RUBBER 08/01/2024 9:05 PM SEAM RUBBER us Justyn Beltran NP LAB BLOOD ORDERABLES Final Resul t Performing Organization Address [facility] Co de Phone Number [facility] [place] [address] * OR CRITICAL CARE ILL/INJURED PATIENT INIT 30-74 MIN (08/01/2024 6:54 PM SEAM RUBBER) Narrative Ernesto Edwards MD - 08/01/2024 6:54 PM SEAM RUBBER Ernesto Edwards MD 08/01/2024 6:55 PM Critical [...] Troponin I high-sensitivity 4-hour (08/01/2024 5:53 PM SEAM RUBBER) Trop I hs 89(H) <=17 ng/L Comment: Interpretive Data For further hscTnI resources including the diagnostic algorithm and an aid in interpretation, copy and paste this link: https://bjhlab.testcatalog.org/show/hsTrop-1 Current Interpretive Data last revised 2019. Trop I hs delta 64(C) ng/L [facility] Comment:Previous critical va lue noted within 48 hours ago. Trop I hs interp Significa nt(C) [facility] Comment:Previous critical va lue noted within 48 hours ago. Blood 08/01/2024 5:53 PM SEAM RUBBER 08/01/2024 6:02 PM SEAM RUBBER us Justyn Beltran [employer] LAB BLOOD ORDERABLES Final Resul t [facility] [place] [address] * ECG 12-LEAD (08/01/2024 4:17 PM SEAM RUBBER) Narrative [facility] - 08/01/2024 4:17 PM SEAM RUBBER Ernesto Edwards MD 08/01/2024 4:18 PM ECG 12 lead Date/Time: 08/01/2024 4:17 PM Performed by: Ernesto Edwards MD Authorized by: Maria Cooper MD Comments: Sinus tachycardia, rate of 110, left axis deviation, persistent left bundle-branch block without Sgarbossa criteria met to suggest occlusion OK. Procedure Note Ernesto Edwards MD - 08/01/2024 4:17 PM CST Procedure ECG 12 lead Date/Time: 08/01/2024 4:17 PM Performed by: Ernesto Edwards MD Authorized by: Maria Cooper MD Comments: Sinus tachycardia, rate of 110, left axis deviation, persistent leftbundle- branch block without Sgarbossa criteria met to suggest occlusionMI. Ernesto Edwards MD 08/01/24 1618 us Maria Cooper MD ECG ORDERABLES Final R esult [facility] * (ABNORMAL) Troponin I high-sensitivity 2-hour (08/01/2024 4:15 PM SEAM RUBBER) Trop I hs 55(H) <=17 ng/L Comment: Interpretive Data [facility] resources including the diagnostic algorithm and an aid in interpretation, copy and paste this link: https://bjhlab.testcatalog.org/show/[email or web address]-[email or web address] Current Interpretive Data last revised 2019. Trop I hs delta 30(C) ng/L [facility] Trop I hs interp Significa nt(C) [facility] Blood 08/01/2024 4:15 PM SEAM RUBBER 08/01/2024 4:25 PM SEAM RUBBER us Justyn Beltran NP LAB BLOOD ORDERABLES Final Resul t [facility] [place] [address] * Critical result callback Cardio chemistry (08/01/2024 4:15 PM SEAM RUBBER) Date Notified [id number] Time Notified 1723 [facility] ESC[facility]AR Test name Trop I hs 2hr [facility] Called/Read Back Srinath [facility] Credentials RN [facility] Called By trevor [facility] Blood 08/01/2024 4:15 PM SEAM RUBBER 08/01/2024 4:25 PM SEAM RUBBER us Justyn Beltran NP LAB BLOOD ORDERABLES Final Resul t Performing Organization Address City/[facility] Co de Phone Number [facility] [place] [address] * (ABNORMAL) ECG 12-LEAD (08/01/2024 3:21 PM SEAM RUBBER) Narrative [facility] - 08/01/2024 3:21 PM SEAM RUBBER Maria Cooper MD 08/01/2024 3:23 PM ECG [...] Whitaker MD ECG ORDERABLES Final Resu lt [facility] * OR CRITICAL CARE ILL/INJURED PATIENT INIT 30-74 MIN (08/01/2024 3:00 PM SEAM RUBBER) Narrative Maria Cooper MD - 08/01/2024 3:00 PM SEAM RUBBER Maria Cooper MD 08/01/2024 3:13 PM Critical [...] spent time documenting in the medical record. Maria Cooper MD IN CLINIC/BEDSIDE ORDER GELY Final Result * (ABNORMAL) Blood gas, arterial (08/01/2024 2:44 PM SEAM RUBBER) pH, Art 7.35 7.35 - 7.45 PCO2, Arterial 48(H) 35 - 45 mmHg [facility] PO2, Arterial 303(H) 83 - 108 mmHg [facility] HCO3 Art (Calculated) 27 20 - 30 mmol/L [facility] BE, art 0 mmol/L [facility] Comment: Interpretive Data No Reference Range Established Current Interpretive Data was last revised on 2017 O2 Sat Art (Measured) 100(H) 90 - 95 % [facility] Blood 08/01/2024 2:44 PM SEAM RUBBER 08/01/2024 2:48 PM SEAM RUBBER Result [facility] Maria Cooper MD LAB BLOOD ORDERABLES Fi nal Result [facility] [place] [address] * (ABNORMAL) Lactate (08/01/2024 2:28 PM SEAM RUBBER) Lactate 4.4(C) 0.7 - 2.0 mmol/L Blood 08/01/2024 2:28 PM SEAM RUBBER 08/01/2024 2:43 PM SEAM RUBBER Result [facility] Maria Cooper MD LAB BLOOD ORDERABLES Fi nal Result Performing Organization Address [facility] Co de Phone Number NAVARR[facility] [place] [address] * eGFR (08/01/2024 2:28 PM SEAM RUBBER) eGFR 81 >=60 mL/min/1. 73 m2 Comment: [...] last reviewed 2021. Blood 08/01/2024 2:28 PM SEAM RUBBER 08/01/2024 2:43 PM SEAM RUBBER Maria Cooper MD LAB BLOOD ORDERABLES Fi nal Result [facility] [address] * Critical Result Callback Chemistry (08/01/2024 2:28 PM SEAM RUBBER) Date Notified 20240801 Time Notified 1509 [facility] TestName Lactate [facility] Called/Read Back Alan [facility] Credentials MD [facility] Called By trevor ESCOBAR Blood 08/01/2024 2:28 PM SEAM RUBBER 08/01/2024 2:43 PM SEAM RUBBER Maria Cooper MD LAB BLOOD ORDERABLES Fi nal Result [facility] [place] [address] * (ABNORMAL) Pro B-type natriuretic peptide (08/01/2024 2:28 PM SEAM RUBBER) NT-proBNP 16,652(H) <=300 pg/mL Comment: Interpretive Comments: [...] et.al. Eur Heart J. 2006:27:330-337. 2. Ric LOCK, Cristin DEWITT. J. AM Fernando Cardiol: Cardiovasc Imag. 2009;2: 216- 225. Interpretive Data Last Revised Date: 2018. Blood 08/01/2024 2:28 PM SEAM RUBBER 08/01/2024 2:43 PM SEAM RUBBER Maria Cooper MD LAB BLOOD ORDERABLES Fi nal Result Performing Organization Address [facility] de Phone Number [facility] [place] [address] * (ABNORMAL) Calcium, ionized (08/01/2024 2:28 PM SEAM RUBBER) Calcium, Ionized 4.17(L) 4.50 - 5.10 mg/dL Blood 08/01/2024 2:28 PM SEAM RUBBER 08/01/2024 2:37 PM SEAM RUBBER Result [facility] Maria Cooper MD LAB BLOOD ORDERABLES Fi nal Result Performing Organization Address [facility] de Phone Number [facility] [place] [address] * (ABNORMAL) Phosphorus (08/01/2024 2:28 PM SEAM RUBBER) Phosphorus, pl 5.2(H) 2.3 - 4.5 mg/dL Blood 08/01/2024 2:28 PM SEAM RUBBER 08/01/2024 2:43 PM SEAM RUBBER Result [facility] Maria Cooper MD LAB BLOOD ORDERABLES Fi nal Result Performing Organization Address [facility] Co de Phone Number [facility] [place] [place] [address] * Magnesium (08/01/2024 2:28 PM SEAM RUBBER) Pathologist [facility] Magnesium 1.9 1.4 - 2.5 mg/dL Blood 08/01/2024 2:28 PM SEAM RUBBER 08/01/2024 2:43 PM SEAM RUBBER Maria Cooper MD LAB BLOOD ORDERABLES Fi nal Result [facility] [place] [address] * (ABNORMAL) Comprehensive metabolic panel (08/01/2024 2:28 PM SEAM RUBBER) Pathologist [facility] Sodium 143 135 - 145 mmol/L Potassium, pl 3.9 3.3 - 4.9 mmol/L [facility] Chloride 103 97 - 110 mmol/L [facility] CO2 25 22 - 32 mmol/L [facility] Anion gap 15 2 - 15 mmol/L [facility] BUN 7 6 - 25 mg/dL [facility] Creatinine 0.81 0.60 - 1.10 mg/dL [facility] Glucose 270(H) 70 - 199 mg/dL [facility] Comment: Interpretive Data Fasting glucose >/= 126 [...] 2022. Calcium 8.4(L) 8.5 - 10.3 mg/dL [facility] Bilirubin, total 0.5 0.1 - 1.2 mg/dL [facility] Protein, pl 6.2(L) 6.5 - 8.5 g/dL [facility] Albumin 3.3(L) 3.5 - 5.0 g/dL [facility] Alk phos 91 40 - 130 Units/L [facility] ALT 8 7 - 45 Units/L [facility] AST 30 10 - 45 Units/L [facility] Blood 08/01/2024 2:28 PM SEAM RUBBER 08/01/2024 2:43 PM SEAM RUBBER Result [facility] Maria Cooper MD LAB BLOOD ORDERABLES Fi nal Result Performing Organization Address [facility] de Phone Number [facility] [place] [address] * aPTT (08/01/2024 2:19 PM SEAM RUBBER) aPTT 34 28 - 38 sec Comment: Interpretive Data Heparin therapeutic range: 66.0 - 100.0 seconds. Range based on correlation with therapeutic heparin activity range of 0.3 - 0.7 Units/mL. Current interpretive data was last revised on 2023. Blood 08/01/2024 2:19 PM SEAM RUBBER 08/01/2024 2:40 PM SEAM RUBBER Narrative [facility] - 08/01/2024 2:49 PM SEAM RUBBER Baseline prior to heparin initiation Result [facility] Maria Cooper MD LAB BLOOD ORDERABLES Fi nal Result Performing Organization Address [facility] de Phone Number [facility] [place] [address] * Protime-INR (08/01/2024 2:19 PM SEAM RUBBER) PT 12.0 9.7 - 13.0 sec INR 1.11 0.90 - 1.20 [facility] Comment: Interpretive data Oral anticoagulant therapeutic ranges: Venous thromboembolism prophylaxis or treatment: 2.0-3.0 CARDIOLOGY Standard range: 2.0-3.0 High-intensity range: 2.5-3.5 Refer to indication-specific guidelines for appropriate target ranges for prosthetic heart valve replacement. Current interpretive data was last revised on 2019. Blood 08/01/2024 2:19 PM SEAM RUBBER 08/01/2024 2:40 PM SEAM RUBBER Narrative [facility] - 08/01/2024 2:49 PM SEAM RUBBER Baseline prior to heparin initiation us Maria Cooper MD LAB BLOOD ORDERABLES Fi nal Result [facility] [place] [address] * (ABNORMAL) CBC without differential (08/01/2024 2:19 PM SEAM RUBBER) WBC 10.8(H) 3.8 - 9.9 K/cumm Hgb 11.3(L) 11.9 - 15.5 g/dL [facility] Hct 36.0 35.6 - 45.5 % [facility] Plt 385 150 - 400 K/cumm [facility] MPV 11.0 9.1 - 12.3 fL [facility] RBC 4.15 3.90 - 5.20 M/cumm [facility] MCV 86.7 81.3 - 96.4 fL [facility] MCH 27.2 27.1 - 33.3 pg [facility] MCHC 31.4(L) 32.3 - 35.7 g/dL [facility] RDW CV 15.9(H) 11.1 - 14.9 % [facility] RDW SD 50.1(H) 35.7 - 48.1 fL [facility] NRBC abs 0.00 0.00 - 0.01 K/cumm [facility] Blood 08/01/2024 2:1 9 PM SEAM RUBBER 08/01/2024 2:43 PM SEAM RUBBER Narrative [facility] - 08/01/2024 2:52 PM SEAM RUBBER Baseline prior to heparin initiation Maria Cooper MD LAB BLOOD ORDERABLES Fi nal Result [facility] [place] [address] * Potassium, whole blood (08/01/2024 1:59 PM SEAM RUBBER) Potassium, bld 3.8 3.3 - 4.9 mmol/L Blood 08/01/2024 1:59 PM SEAM RUBBER 08/01/2024 2:05 PM SEAM RUBBER Alan Sandoval MD LAB BLOOD ORDERABLES Final Result Performing Organization Address [facility] de Phone Number [facility] [place] [address] * (ABNORMAL) Troponin I high-sensitivity series (baseline, 2hr, 4hr, 6hr) (08/01/2024 1:58 PM SEAM RUBBER) Pathologist [facility] Trop I hs 25(H) <=17 ng/L Comment: Interpretive Data For further hscTnI resources including the diagnostic algorithm and an aid in interpretation, copy and paste this link: https://bjhlab.testcatalog.org/show/hsTrop-1 Current Interpretive Data last revised 2019. Blood 08/01/2024 1:58 PM SEAM RUBBER 08/01/2024 2:26 PM SEAM RUBBER Justyn Beltran NP LAB BLOOD ORDERABLES Final Resul t Performing Organization Address [facility] de Phone Number [facility] [place] [address] * ECG 12-LEAD (08/01/2024 1:54 PM SEAM RUBBER) Narrative [facility] - 08/01/2024 1:54 PM SEAM RUBBER Maame Whitaker MD 08/01/2024 1:56 PM ECG [...] MD ECG ORDERABLES Final Resu lt [facility] * CT Chest PE (CTA) W Contrast (08/01/2024 12:36 PM SEAM RUBBER) Anatomical Region Laterality Modality Body N/A Computed Tomogra phy 08/01/2024 1:03 PM SEAM RUBBER Impressions 08/01/2024 2:15 PM SEAM RUBBER 1. No pulmonary embolism. 2. Moderate pulmonary [...] Bal Owens M.D. Narrative 08/01/2024 2:15 PM SEAM RUBBER EXAMINATION: CT CHEST PE (CTA) W CONTRAST [...] Result * POCT glucose (07/31/2024 6:11 AM SEAM RUBBER) Glucose, POC 91 70 - 199 mg/dL Blood 07/31/2024 6:11 AM SEAM RUBBER 07/31/2024 6:11 AM SEAM RUBBER Asaf English MD LAB POCT ORDERABLES - DEVICE Final Result [facility] [place] [address] * (ABNORMAL) Urinalysis reflex to microscopic and culture Urine (07/30/2024 12:36 AM SEAM RUBBER) Color, ur Yellow Yellow Clarity, ur Cloudy(A) Clear [facility] Specific gravity, ur 1.015 1.003 - 1.030 [facility] pH, urine 6.0 [facility] Comment: Interpretive Data U rine pH is affected by diet, medications, systemic acid-base disturbances, and renal tubular function. pH may affect urinary stone formation. For example, urine pH below 6.0 may help reduce the tendency for calcium phosphate stones and pH greater than 6.0 may reduce the tendency for uric acid stone formation. Source: [facility] Current Interpretive Data was last revised on 2017 Protein, ur ql Trace Negative [facility] Glucose, ur ql Negative Negative [facility] Ketones, ur Negative Negative [facility] Bilirubin, ur Negative Negative [facility] Blood, ur Negative Negative [facility] Urobilinogen, ur <2.0 <2.0 mg/dL [facility] Nitrite, ur Positive(A) Negative [facility] Leukocyte esterase, ur 3+(A) Negative [facility] UA reflex comment Reflex to microscopic UA will be performed. [facility] Urine 07/30/2024 12:3 6 AM SEAM RUBBER 07/30/2024 12:42 AM SEAM RUBBER Bernardo Lundy MD LAB MICROBIOLOGY - NERAL ORDERABLES Final Result [facility] [place] [address] * (ABNORMAL) Urinalysis, microscopic only (07/30/2024 12:36 AM SEAM RUBBER) WBC, ur 21-50(A) 0 - 5 /HPF RBC, ur 3-5(A) 0 - 2 /HPF [facility] Epithelial cells, squamous, ur 1-5 0 - 5 /HPF [facility] Epithelial cells, renal, ur 1-5(A) 0 - 0 /HPF [facility] Bacteria, ur 2+(A) [facility] Mucous, ur Present(A) [facility] Culture Reflex Comment Reflex to urine culture will be performed. [facility] Urine 07/30/2024 12:3 6 AM SEAM RUBBER 07/30/2024 12:42 AM SEAM RUBBER Bernardo Lundy MD LAB URINE ORDERABLES Final Result [facility] [place] [address] * (ABNORMAL) Urine culture Urine (07/30/2024 12:36 AM SEAM RUBBER) Report Final Report: Greater than or equal to 100,000 colonies/mL of Escherichia coli Greater than or equal to 100,000 colonies/mL of Escherichia coli #2 (.) Organism ESCHERICHIA COLI [facility] Organism ESCHERICHIA COLI [facility] Urine 07/30/2024 12:3 6 AM SEAM RUBBER 07/30/2024 1:33 AM SEAM RUBBER Narrative [facility] - 08/01/2024 11:11 AM SEAM RUBBER Urine culture reflexed based upon urinalysis results. Testing performed by [facility] ([phone]) Organism Antibiotic Method Susceptibility Escherichia coli Ampicillin [...] us Bernardo Lundy MD LAB MICROBIOLOGY - GE NERAL ORDERABLES Final Result [facility] [place] [address] * ED PERIPHERAL LINE INSERTION (07/29/2024 2:37 PM SEAM RUBBER) Narrative Ernesto Edwards MD - 07/29/2024 2:37 PM SEAM RUBBER Ernesto Edwards MD 07/29/2024 2:58 PM Peripheral [...] Result * POCUS CVC (07/29/2024 2:19 PM SEAM RUBBER) Anatomical Region Laterality Modality Other 07/29/2024 1:47 PM SEAM RUBBER Narrative 08/02/2024 5:26 PM CDT Performed by: [...] Chan on Monday, July 29, 2024 at 2:36PM I have [...] (baseline, 2hr, 4hr, 6hr) (07/29/2024 2:16 PM SEAM RUBBER) Trop I hs <4 <=17 ng/L Comment: Interpretive Data For further hscTnI resources including the diagnostic algorithm and an aid in interpretation, copy and paste this link: https://bjhlab.testcatalog.org/show/hsTrop-1 Current Interpretive Data last revised 2019. Blood 07/29/2024 2:16 PM SEAM RUBBER 07/29/2024 2:26 PM SEAM RUBBER us Bernardo Lundy MD LAB BLOOD ORDERABLES Final Result [facility] [place] [address] * eGFR (07/29/2024 2:16 PM SEAM RUBBER) eGFR 90 >=60 mL/min/1. 73 m2 Comment: [...] last reviewed 2021. Blood 07/29/2024 2:16 PM SEAM RUBBER 07/29/2024 2:26 PM SEAM RUBBER us Bernardo Lundy MD LAB BLOOD ORDERABLES Final Result [facility] [place] [address] * Differential, auto (07/29/2024 2:16 PM SEAM RUBBER) Neutrophil abs 4.7 1.5 - 6.5 K/[place]umm Imm gran abs 0.0 0.0 - 0.1 K/cumm [facility] Lymphocyte abs 0.9 0.8 - 3.3 K/cumm [facility] Monocyte abs 0.3 0.2 - 0.8 K/cumm [facility] Eosinophil abs 0.2 0.0 - 0.5 K/cumm [facility] Basophil abs 0.0 0.0 - 0.1 K/cumm [facility] Neutrophil pct 76.7 % [facility] Comment: Interpretive Data Percent cell count reference ranges are not reported, since discordance with absolute values may lead to misinterpretation of CBC data. Current Interpretive Data was last revised on 2017. Imm gran pct 0.5 % [facility] Comment: Interpretive Data Percent cell count reference ranges are not reported, since discordance with absolute values may lead to misinterpretation of CBC data. Current Interpretive Data was last revised on 2017. Lymphocyte pct 14.3 % [facility] Comment: Interpretive Data Percent cell count reference ranges are not reported, since discordance with absolute values may lead to misinterpretation of CBC data. Current Interpretive Data was last revised on 2017. Monocyte pct 5.2 % [facility] Comment: Interpretive Data Percent cell count reference ranges are not reported, since discordance with absolute values may lead to misinterpretation of CBC data. Current Interpretive Data was last revised on 2017. Eosinophil pct 2.8 % [facility] Comment: Interpretive Data Percent cell count reference ranges are not reported, since discordance with absolute values may lead to misinterpretation of CBC data. Current Interpretive Data was last revised on 2017. Basophil pct 0.5 % [facility] Comment: Interpretive Data Percent cell count reference ranges are not reported, since discordance with absolute values may lead to misinterpretation of CBC data. Current Interpretive Data was last revised on 2017. Blood 07/29/2024 2:16 PM SEAM RUBBER 07/29/2024 2:26 PM SEAM RUBBER Bernardo Lundy MD LAB BLOOD ORDERABLES Final Result [facility] [place] [address] * Pro B-type natriuretic peptide (07/29/2024 2:16 PM SEAM RUBBER) NT-proBNP 260 <=300 pg/mL Comment: Interpretive Comments: [...] et.al. Eur Heart J. 2006:27:330-337. 2. Ric LOCK, Cristin DEWITT. J. AM Fernando Cardiol: Cardiovasc Imag. 2009;2: 216- 225. Interpretive Data Last Revised Date: 2018. Blood 07/29/2024 2:16 PM SEAM RUBBER 07/29/2024 2:26 PM SEAM RUBBER us Bernardo Lundy MD LAB BLOOD ORDERABLES Final Result Performing Organization Address [facility] de Phone Number [facility] [place] [address] * (ABNORMAL) Thyroid Function [place] (07/29/2024 2:16 PM SEAM RUBBER) [facility] TSH 20.30(H) 0.30 - 4.20 mcIUnit/mL Blood 07/29/2024 2:16 PM SEAM RUBBER 07/29/2024 2:26 PM SEAM RUBBER Bernardo Lundy MD LAB BLOOD ORDERABLES Final Result Performing Organization Address [facility] de Phone Number [facility] [place] [address] * (ABNORMAL) CBC with auto differential (07/29/2024 2:16 PM SEAM RUBBER) [facility] WBC 6.1 3.8 - 9.9 K/cumm Hgb 8.9(L) 11.9 - 15.5 g/dL [facility] Hct 27.4(L) 35.6 - 45.5 % [facility] Plt 209 150 - 400 K/cumm [facility] MPV 11.3 9.1 - 12.3 fL [facility] RBC 3.22(L) 3.90 - 5.20 M/cumm [facility] MCV 85.1 81.3 - 96.4 fL [facility] MCH 27.6 27.1 - 33.3 pg [facility] MCHC 32.5 32.3 - 35.7 g/dL [facility] RDW CV 15.3(H) 11.1 - 14.9 % [facility] RDW SD 47.2 35.7 - 48.1 fL [facility] NRBC abs 0.00 0.00 - 0.01 K/cumm [facility] Blood 07/29/2024 2:16 PM SEAM RUBBER 07/29/2024 2:26 PM SEAM RUBBER Bernardo Lundy MD LAB BLOOD ORDERABLES Final Result Performing Organization Address [facility] Co de Phone Number [facility] [place] [address] * (ABNORMAL) T4, free (07/29/2024 2:16 PM SEAM RUBBER) [facility] Free T4 0.66(L) 0.90 - 1.70 ng/dL Blood 07/29/2024 2:16 PM SEAM RUBBER 07/29/2024 2:26 PM SEAM RUBBER Narrative [facility] - 07/29/2024 3:26 PM SEAM RUBBER This test was reflexed from a TSH result. Bernardo Lundy MD LAB BLOOD ORDERABLES Edited Result - Final Performing Organization Address City/[facility]/ZIP Co de Phone Number [facility] [place] [address] * (ABNORMAL) Comprehensive metabolic panel (07/29/2024 2:16 PM SEAM RUBBER) Pathologist [facility] Sodium 135 135 - 145 mmol/L Potassium, pl 3.2(L) 3.3 - 4.9 mmol/L [facility] Chloride 95(L) 97 - 110 mmol/L [facility] CO2 30 22 - 32 mmol/L [facility] Anion gap 10 2 - 15 mmol/L [facility] BUN 12 6 - 25 mg/dL [facility] Creatinine 0.74 0.60 - 1.10 mg/dL [facility] Glucose 100 70 - 199 mg/dL [facility] Comment: Interpretive Data Fasting glucose >/= 126 [...] 2022. Calcium 9.3 8.5 - 10.3 mg/dL [facility] Bilirubin, total 0.7 0.1 - 1.2 mg/dL [facility] Protein, pl 6.5 6.5 - 8.5 g/dL [facility] Albumin 3.4(L) 3.5 - 5.0 g/dL [facility] Alk phos 87 40 - 130 Units/L [facility] ALT 7 7 - 45 Units/L [facility] AST 24 10 - 45 Units/L [facility] Blood 07/29/2024 2:16 PM SEAM RUBBER 07/29/2024 2:26 PM SEAM RUBBER Bernardo Lundy MD LAB BLOOD ORDERABLES Final Result [facility] [place] [address] * XR Chest 1 Vw Portable (07/29/2024 2:00 PM SEAM RUBBER) Anatomical Region Laterality Modality Body, Chest N/A Computed Radiogr aphy 07/29/2024 4:50 PM SEAM RUBBER Impressions 07/29/2024 5:54 PM SEAM RUBBER No comparison available. Eventration of the right hemidiaphragm. The lungs are clear. No pleural effusion or pneumothorax. The cardiomediastinal silhouette is mildly enlarged. Dictated by: Saravanan Zamora M.D. (Ramanan) The radiology attending physician has personally reviewed this study, and had reviewed and/or edited this written report and agrees with it. Electronically signed by: Bambi Joiner M.D. Narrative 07/29/2024 5:54 PM SEAM RUBBER EXAMINATION: 1 view chest radiograph Procedure Note [...] it. Electronically signed by: Bambi Joiner M.D. Bernardo Lundy MD IMG XR PROCEDURES Fin al Result * ECG 12-LEAD (07/29/2024 1:49 PM SEAM RUBBER) Narrative [facility] - 07/29/2024 1:49 PM SEAM RUBBER Ernesto Edwards MD 07/29/2024 1:54 PM ECG [...] clear STEMI Ernesto Edwards MD 07/29/24 1354 us Bernardo Lundy MD ECG ORDERABLES Final Result MUSE C [facility]J from Last 3 Months Additional Health Concerns Infection Onset Date Last Indicated MDR gram neg/ESBL Comment:Added from external infection. Source: [facility]. 01/01/24 PROTEUS in leg wound 01/01/2024 Human metapneumovirus, contact + droplet 025 08/01/2024 Insurance MEDICARE SOLUTIONS MEDICARE SOLUTIONS Advance Directives For more information, please contact: [phone] * Full Code (Latest Code Status on File) Date Activated Date Inactivated Comments 08/01/2024 9:52 PM 08/08/2024 10:03 PM Care Teams Diesel Dinkey Engineer Relationship Specialty Start Date End Date Hardik Andres MD [address] [place] [address] PCP - General 01/09/21
--- OUTSIDE RECORDS SUMMARY | 2024-08-13 11:50 | XMS_ITS | Clinical Summary ---
Author Organization [facility] Address [address] [place] [address] Care Team Providers Care [employer] Name Role Phone Luiz Tang MD Unavailable Hardik Andres MD Primary Care Provider Allergies Active Allergy Reactions Criticality Noted Date Comments Sulfamethoxazole-Trimethopr im Nausea and Vomiting 12/14/2016 Ciprofloxacin Nausea Only,Dizziness 02/10/2019 Tape Other (see comment) Medium 11/04/2015 Tears skin Medications Incontinence Supply Disposable (UNDERPADS) MiscIndications :Lymphedema,Mul tiple open wounds of lower leg, left, subsequent encounter Use as directed 180 each 1 12/27/19 21 Active traMADol (ULTRAM) 50 MG tabletIndicatio ns:Acute Pain < 7 Day Supply Take 0.5 tablets (25 mg total) by mouth 4 (four) times daily as needed for Pain. Indications: Acute Pain < 7 Day Supply 14 tablet 11/08/19 24 Active HYDROcodone-darryn taminophen (NORCO) 5-325 MG tabletIndicatio ns:Acute Pain < 7 Day Supply Take 1 tablet by mouth every 6 (six) hours as needed. Indications: Acute Pain < 7 Day Supply 21 tablet 01/03/20 24 Active nystatin (MYCOSTATIN) powder Apply topically 2 (two) times daily. 30 g 01/03/20 24 Active ipratropium-alb uterol (COMBIVENT RESPIMAT) 20-100 MCG/ACT inhalerIndicati ons:COPD Inhale 1 puff into the lungs 4 (four) times daily. Indications: COPD Please provide assembled. 4 g 01/03/20 24 Active losartan (COZAAR) 50 MG tablet Take 1 tablet (50 mg total) by mouth daily. Hold if systolic less than 100 30 tablet 01/04/20 24 Active levothyroxine (SYNTHROID) 75 MCG tabletIndicatio ns:thyroid Take 1 tablet (75 mcg total) by mouth daily. Indications: thyroid 30 tablet 01/04/20 24 Active nystatin (MYCOSTATIN) powderIndicatio ns:Yeast infection Apply topically 2 (two) times daily. 15 g 04/06/20 24 Active furosemide (LASIX) 40 MG tabletIndicatio ns:fluid retention Take 0.5 tablets (20 mg total) by mouth daily. Indications: fluid retention 90 tablet 1 07/21/19 25 Active gabapentin (NEURONTIN) 400 MG capsuleIndicati ons:Chronic bilateral low back pain with bilateral sciatica Take 1 capsule (400 mg total) by mouth 3 (three) times daily. 90 capsule 07/21/19 25 Active potassium chloride CR (KLOR-CON M20) 20 MEQ tabletIndicatio ns:Essential hypertension Take 2 tablets (40 mEq total) by mouth 2 (two) times daily. 360 tablet 1 07/21/19 25 Active Cholecalciferol (VITAMIN D-3) 25 MCG (1000 UT) CapIndications: Low serum vitamin D Take 1 tablet by mouth daily. 30 capsule 3 07/21/19 25 Active Cyanocobalamin (VITAMIN B-12 CR) 1000 MCG Tab CRIndications:V itamin B12 deficiency Take 1 tablet by mouth daily. 30 tablet 2 07/21/19 25 Active gabapentin (NEURONTIN) 400 MG capsule Take 1 capsule (400 mg total) by mouth 3 (three) times daily. 90 capsule 01/03/20 24 025 Discontin ued(Reord er) furosemide (LASIX) 40 MG tabletIndicatio ns:fluid retention Take 0.5 tablets (20 mg total) by mouth daily. Indications: fluid retention 90 tablet 1 01/03/20 24 025 Discontin ued(Reord er) KLOR-CON M20 20 MEQ tabletIndicatio ns:Essential hypertension TAKE 2 TABLETS (40 MEQ TOTAL) BY MOUTH 2 (TWO) TIMES DAILY. INDICATIONS: SUPPLEMENTATION 360 tablet 1 01/23/20 24 025 Discontin ued(Reord er) Cyanocobalamin (VITAMIN B-12 ER OR) 025 Discontin ued(Reord er) Cholecalciferol (VITAMIN D-3 OR) 025 Discontin ued(Reord er) Active Problems Problem Noted Date Diagnosed Date Failure to thrive in adult 01/01/2024 Leg edema 03/05/2023 Ulcer of left lower extremit y with fat layer exposed ([facility]) 02/08/2021 Hepatitis C Infection 12/20/2020 Lymphedema 10/19/2020 Hypomagnesemia 10/19/2020 Polyneuropathy associated with critical illness ([facility]) 10/19/2020 Chronic venous insufficiency 10/19/2020 Hemoglobin A1c greater than 9.0% 03/25/2020 Type 2 diabetes mellitus wit hout complication, without long-term current use of insulin ([facility]) 03/25/2020 Cellulitis of left leg 03/24/2020 Low serum vitamin D 11/12/2019 Postmenopausal 11/12/2019 Hypokalemia 05/08/2019 Hypertension 05/08/2019 Hypothyroidism 05/08/2019 Bilateral lower leg cellulitis 05/07/2019 Cellulitis 03/06/2019 Chronic use of benzodiazepine for therapeutic pu rpose 01/01/2018 Depression 07/11/2017 Hyperglycemia 08/03/2015 Hypothyroidism, secondary 06/25/2014 Hyperlipemia, idiopathic familial 06/14/2014 GERD (gastroesophageal reflux disease) 5 Edema 06/14/2014 Insomnia 06/02/2014 COPD (chronic obstructive pu lmonary disease) ([facility]) Chronic low back pain Anxiety, generalized Chronic narcotic use Heavy cigarette smoker Resolved Problems Problem Noted Date Diagnosed Date Resolved Date Hyponatremia 03/25/2020 03/28/2020 Acute on chronic renal insufficiency 03/25/2020 03/28/2020 Atypical chest pain 12/14/2016 11/05/19 20 Under care of clock and watch hands painter 02/05/2020 Encounters Date Type Department Care Team Description 07/22/2024 Travel 07/21/2024 Telephone [facility] Medical [facility] [place] [address] Hardik Andres MD Medication 07/21/2024 Telephone [facility] Medical [facility] - [facility] [address] [place] [address] Hardik Andres MD Error (Error/) 05/27/2024 Scan [facility] SRVCS Scanned, Doc [facility] from Last 3 Months Immunizations Name Administration Dates Next Due Afluria 36 MONTHS+ (Prefille d Syringe IIV4) 03/09/2019(Deferred: Patient/family declined),03/08/2019(Deferred: Other - dose rescheduled) Fluzone High Dose - >Age 65 (Prefilled Syringe) 03/11/2020 Influenza Adult (Generic) 03/11/2020,04/16/2016 Pneumococcal (Pneumovax 23) 03/11/2020 Family History Medical History Relation Comments CAD Other Relation Status Comments Other Social History Tobacco Use Types Packs/Day Years Used Date Smoking Tobacco: Every Day Cigarettes Smokeless Tobacco: Never Tobacco Cessation:Ready to Q uit: No; Counseling Given: Yes Comments:Provider to sales counselor Alcohol Use Standard Drinks/Week Comments No 0 (1 standard drink = 0.6 oz pur e alcohol) OASIS D0700: Social Isolation Answer Da te Recorded Frequency of experiencing loneliness or isolatio n Never 08/14/2023 OASIS A1250: Transportation Answer Date Recorded Lack of Transportation (Medical) No 08/14/2023 Lack of Transportation (Non-Medical) No 08/14/2023 Patient Unable or Declines to Respond No 08/14/2023 OASIS B1300: Health Literacy Answer Etienne e Recorded Frequency of needing help to read materials from doctor or pharmacy Never 08/14/2023 [facility] Utilities Answer Date Recorded In the past 12 months has health system [email or web address], or water [employer] threatened to shut off services in your home? No 01/01/2024 Humiliation, Afraid, Rape, and Kick questionnair e Answer Date Recorded Within the last year, have y ou been afraid of your partner or ex-partner? No 01/01/2024 Within the last year, have y ou been humiliated or emotionally abused in other ways by your partner or ex-partner? No Within the last year, have y ou been kicked, hit, slapped, or otherwise physically hurt by your partner or ex-partner? No 01/01/2024 Within the last year, have y ou been raped or forced to have any kind of sexual activity by your partner or ex-partner? No 01/01/2024 Social Connection and Isolation Panel [NHANES] A nswer Date Recorded In a typical week, how many times do you talk on the phone with family, friends, or neighbors? Never 03/24/2020 How often do you get together with friends or re latives? Never 03/24/2020 How often do you attend adventist or islam serv ices? Never 03/24/2020 Do you belong to any clubs o r organizations such as adventist groups, unions, fraternal or athletic groups, or school groups? No 03/24/2020 How often do you attend meet ings of the clubs or organizations you belong to? Never 03/24/2020 Are you , , di vorced, , never , or living with a partner? 03/24/2020 Overall Financial Resource Strain (CARDIA) Answe r Date Recorded How hard is it for you to pa y for the very basics like food, housing, medical care, and heating? Somewhat hard 01/01/2024 PHQ-2 Answer Date Recorded Patient Health Questionnaire-2 Score 1 07/03/2023 [facility] of Occupat ional Health - Occupational Stress Questionnaire Answer Date Recorded Do you feel stress - tense, restless, nervous, or anxious, or unable to sleep at night because your mind is troubled all the time - these days? Rather much 03/24/2020 Exercise Vital Sign Answer Date Recorde d On average, how many days pe r week do you engage in moderate to strenuous exercise (like a brisk walk)? 0 days 03/24/2020 On average, how many minutes do you engage in exercise at this level? 0 min 03/24/2020 Hunger Vital Sign Answer Date Recorded Within the past 12 months, y ou worried that your food would run out before you got the money to buy more. Never true 01/01/20 24 Within the past 12 months, t he food you bought just didn't last and you didn't have money to get more. Never true 01/01/2024 PRAPARE - Transportation Answer Date Re corded In the past 12 months, has l ack of transportation kept you from medical appointments or from getting medications? No 11/2023 In the past 12 months, has l ack of transportation kept you from meetings, work, or from getting things needed for daily living? No 01/01/2024 Housing Stability Vital Sign Answer Etienne e Recorded In the last 12 months, was t here a time when you were not able to pay the mortgage or rent on time? No 01/01/2024 In the past 12 months, how m any times have you moved where you were living? 1 01/01/2024 At any time in the past 12 m [facility], were you homeless or living in a usp (including now)? No 01/01/2024 Comments No Sex and Gender Information Value Date Recorded Sex Assigned at Not on file Legal Sex Female 10:12 PM CDT Gender Identity Not on file Sexual Orientation Not on file Last Filed Vital Signs Vital Sign Reading Time Taken Comments Blood Pressure 157/90 02/11/2024 9:30 AM CDT Pulse 112 02/11/2024 9:30 AM CDT Temperature 36.8 C (98.3 F) 02/11/2024 2:02 AM CDT Respiratory Rate 23 02/11/2024 9:30 AM CDT Oxygen Saturation 98% 02/11/2024 9:30 AM CDT on BIPAP Inhaled Oxygen Concentration - - Weight 119.1 kg (262 lb 8 oz) 02/11/2024 2:14 AM CDT Height 152.4 cm (5') 02/11/2024 2:14 AM CDT Body Mass Index 51.27 02/11/2024 2:14 AM CDT Plan of Treatment Health Maintenance Due Date Last Done Comments Colorectal Cancer Screening Colonoscopy (10 Years) 1959 Kidney Health Evaluation 1959 Diabetes: Retinopathy Eye Exam 1977 DTaP, Tdap and Td Vaccines (1 - Tdap) 1978 Mammogram Screening 1999 Zoster Vaccines (1 of 2) 2009 RSV Immunization or 60+ Years (1 - Risk 60-74 years 1-dose series) 2019 Pneumococcal Vaccine: 65+ Years (2 of 2 - PCV) 03/11/2021 03/11/2020 Pneumococcal Vaccine: Pediatrics (0 to 5 Years) and At-Risk Patients (6 to 64 Years) (2 of 2 - PCV) 03/11/2021 03/11/2020 Lipid Panel 12/05/2023 12/04/2022, 11/24, 07/18/2020, Additional history exists COVID-19 Vaccine ( - season) 2024 Influenza Adult (#1) 2024 03/11/2020, 03/11/2020, 04/16/2016 PHQ-2 (Physician [place]) 05/27/2024 07/03/2023 Dexa Scan (General) 2024 Hemoglobin A1C 08/12/2024 02/13/2024, 08/0 12/2023, 12/04/2022, Additional history exists Hepatitis C Completed 12/20/2020 Meningococcal B Vaccine Aged Out No l onger eligible based on patient's age to complete this topic Meningococcal Vaccine Aged Out No kimberly gilles eligible based on patient's age to complete this topic RSV Immunizations Under 20 Months Aged Out No longer eligible based on patient's age to complete this topic Procedures Procedure Name Priority Date/Time Associated Diagnosis Comments HEMOGLOBIN, GLYCOSYLATED Routine 01/02/2024 5:18 AM CDT LIPOPROTEIN, LDL CHOL, DIRECT Routine 12/04/2022 2:37 PM CDT from Last 3 Months or Most Recently Relevant to Health Maintenance Results * (ABNORMAL) HEMOGLOBIN, GLYCOSYLATED (01/02/2024 5:18 AM CDT) HGB A1C 5.7(H) <5.7 % 01/03/2024 1:16 PM CDT [facility] ESTIMATED AVG GLUCOSE 117(H) 74 - 114 MG/DL 01/03/2024 1:16 PM CDT [facility] 01/02/2024 5:18 AM CDT [facility] Final Res ult [facility] [address] [place] [address], [id number] * LIPOPROTEIN, LDL CHOL, DIRECT (12/04/2022 2:37 PM CDT) DIRECT LDL 198 MG/DL 12/04/2022 10:00 PM CDT [facility] Comment:>189 VERY HIGH 12/04/2022 2:37 PM CDT Hardik Andres MD LABORATORY Final Result [facility] [address] [place] [address], [id number] from Last 3 Months or Most Recently Relevant to Health Maintenance Additional Health Concerns Infection Onset Date Last Indicated MRSA 05/01/2023 01/01/2024 ESBL - Extended Spectrum Beta-lactamase 01/01/2001/01/2024 Insurance [employer] Advance Directives * Full Code (Latest Code Status on File) Date Activated Date Inactivated Comments 01/01/2024 3:45 AM 01/03/2024 4:09 PM * Full Code Date Activated Date Inactivated Comments 07/25/2023 12:32 PM 12/31/2023 11:51 PM * Full Code Date Activated Date Inactivated Comments 03/25/2020 9:33 AM 03/28/2020 5:49 PM * Full Code Date Activated Date Inactivated Comments 03/24/2020 9:27 PM 03/25/2020 9:33 AM * Full Code Date Activated Date Inactivated Comments 05/08/2019 3:35 PM 05/10/2019 11:28 AM Care Teams [employer] Relationship Specialty Start Date End Date Hardik Andres MD [address] [place] [address] PCP - General INTERNAL MEDICINE 01/03/24 Luiz Tang MD Consulting Physician INTERNAL MEDICINE 01/31/21
[2024-08-13] MEDS: oxyCODONE/ACETAMINOPHEN (*CRX) 5-325 MG TABLET 1 TABLET PO (12:28)
[2024-08-13 12:30] VITALS: BP 138/79; PULSE 59; RESP 14; O2SAT 97
[2024-08-13 13:37] LABS: Troponin I < 0.012 ng/mL (0.000-0.034)
[2024-08-13] MEDS: OSELTAMIVIR PHOSPHATE 75 MG CAPSULE PO (13:38)
--- NOTE | 2024-08-13 13:47 | PC.NURSE ---
Attempted to call report to [facility] with no answer. Message left with DON.
[2024-08-13 13:57] VITALS: BP 134/68; PULSE 59; RESP 16; O2SAT 98
== END 2024-08-13 14:17 ==
PROVIDERS: Emergency Provider Emergency Medicine
DX: J10.1 Influenza due to other identified influenza virus with other respiratory manifestations (principal); J44.9 Chronic obstructive pulmonary disease, unspecified; I10 Essential (primary) hypertension; F41.9 Anxiety disorder, unspecified; Z87.891 Personal history of nicotine dependence; Z20.822 Contact with and (suspected) exposure to COVID-19; M79.606 Pain in leg, unspecified
CPT/HCPCS: 36415; 71046; 80053; 83690; 83880; 84484; 85025; 85055; 85610; 85730; 87637; 93005; 99284; A9270